=== PATIENT | female | born 1945 | race Caucasian/White ===

== ENCOUNTER 2018-02-23 10:28 | Day surgery (SDC) | payer MEDICARE, OTHER, SELFPAY ==
[2018-02-23 10:59] VITALS: BP 151/70; PULSE 63; RESP 16; TEMP 36.3; O2SAT 100; BMI 24.8
[2018-02-23 11:30] LABS: Bedside Glucose 132 mg/dL (70-110)
[2018-02-23] MEDS: Cefazolin 2 GM in 0.9% Normal Saline 100 ML IV (13:25)
[2018-02-23] MEDS: Mupirocin Ointment 22gm Tube 1 APPLIC (14:15)
--- NOTE | 2018-02-23 14:21 | PCM.DC.ORTHO ---
Discharge Diet: No Restrictions - leave dressing on until seen in postop clinic; keep clean and dry; call with concerns Discharge Activity: May Not Drive May shower in (days): 1 Ice area for (Minutes): 20 - Every hour while awake. Weight Bearing Status: Weight bearing as tolerated Keep extremity elevated above heart level: Operative Extremity Call your doctor if your incision/area has: Continuous Slow Oozing, Sudden Increased Bleeding, Increased Pain/ Swelling, Increased Redness, Foul Smelling Discharge Call your doctor if you observe: Fever of 101 or Higher, Coldness, Increased Pain, Numbness or Tingling, Change in Color, Calf discomfort Allergies/Adverse Reactions: Allergies flavoxate [From Urispas] Allergy (Verified 02/23/18 05:53) Rash meperidine HCl [From Demerol] Allergy (Verified 02/21/18 08:10) Rash morphine Allergy (Verified 02/21/18 08:10) Abd cramps/diarrhea Medications to take at Discharge Acetaminophen [Tylenol Extra Strength] 500 mg PO Q6H PRN PRN 08/30/15 Albuterol IH (ProAir) [Proair Hfa (SP)Vent Pts] 1 puff INHALATION PRN PRN 08/30/15 Aspirin [Adult Low Dose Aspirin EC] 81 mg PO DAILY 08/30/15 Hydrochlorothiazide 12.5 mg PO DAILY 08/30/15 Metoprolol Tartrate [Lopressor (Beta Aston)] 50 mg PO BID 08/30/15 fluoxetine 20 mg capsule 40 mg PO QDAY 11/23/17 glimepiride 4 mg tablet 4 mg PO BID 11/23/17 metformin 500 mg tablet 500 mg PO BID 11/23/17 Acetaminophen/Codeine #3 [Tylenol #3 Tablet] 1 - 2 tablet PO Q6H PRN PRN #30 tablet 02/23/18 The following prescriptions were given: Acetaminophen/Codeine #3 [Tylenol #3 Tablet] 1 - 2 tablet PO Q6H PRN PRN #30 tablet PRN Reason: Pain Primary Care Physician: Sydnee Guerrero MD [Primary Care Provider] - Please Follow Up With: Helen Russell, DO - [phone]
--- NOTE | 2018-02-23 14:25 | SYN_PTH ---
PATIENT: AGUSTÍN REED [place] [facility] [place][id number] AGE/SX: 72/F ROOM: RE02/23/[address]: Dr. Helen Russell DO : 1945 BED: DIS: 02/23/2018 SPEC #: [id number] RECD: 02/23/18 15:22 STATUS: IVANA MICHAELLE #: [id number] LENI: 02/23/18 14:[address]: Helen Russell DEPT: SURGICAL PATHOLOGY RECD BY: Abdiel Cooney ENTERED: 02/24/18 12:13 SP TYPE: SYNOVIUM OTHR DR: Dr. Sydnee Guerrero MD Tissues: Synovial tissue of joint, NOS Procedures: Surgery Specimen Level IV HEADER OPERATION: Right carpal tunnel release with tendon sheath debridement PRE-OP DIAGNOSIS: Right carpal tunnel syndrome TISSUE SUBMITTED: Synovial around tendon ? right lower aspect of wrist, right MICROSCOPIC DIAGNOSIS Synovial around tendon: Fragment of fibroadipose tissue and reactive synovial tissue. ROSA MARIA:prudence 02/25/18 MICROSCOPIC DESCRIPTION Slides are reviewed. GROSS DESCRIPTION Received in fixative is one container labeled with the patient's name and designated synovial tendon right lower aspect of wrist, right. The specimen consists of a piece of prater-light yellow soft tissue measuring 0.2 x 0.2 x 0.1 cm. The specimen is totally submitted in one cassette. / ROSA MARIA:prudence 02/24/18 TC:5 CPT: 08758
--- NOTE | 2018-02-23 14:26 | OP.PCM_ITS ---
Report of Operation Date of Procedure: 02/23/18 Pre-Operative Diagnosis: right wrist carpal tunnel syndrome/ synovitis Post-Operative Diagnosis: same Surgery/Procedure Performed:: right wrist carpal tunnel release, synovectomy/ tendon Type of Anesthesia:: Daniel Hernandez Anesthesiologist: Hansel Sifuentes Specimen's removed: tendon synovium Fluids Replaced: 800 cc lr Description of Procedure: Preoperative note Patient had is a 72-year-old female who has had nerve conduction study and EMG confirming carpal tunnel she also has some annoyance around her radial carpal joint where an ultrasound so she had a cyst. MRI did not show the cyst however patient would like this further evaluated is quite bothersome as well. Wrist benefits and alternatives surgery discussed with patient. Risks including but not limited to blood loss, blood clot, infection, neurovascular injury, failure procedure, loss of life and loss of limb. Patient is aware would like proceed with right carpal tunnel release repair is indicated. Operative note Patient seen and examined preoperative holding area. Right wrist is marked. Patient brought to the operating room placed supine on the operating table. Signing, anesthesia, antibiotics were administered. The right arm was prepped and draped in usual sterile fashion after [place] block was initiated. We marked out our extended carpal tunnel release extending past the wrist joint going radially as this is the location of her palpable cyst. Timeout was performed. We then used a 15 blade cut the skin did tenotomies to dissect down to the level of the transverse carpal ligament which was released in its entirety. Released it distally to the fat pad and proximally under standard technique. We then were able to go radially and actually see if the cysts appear to be a tenosynovial fluid in this synovium was then resected and sent to pathology for evaluation. There are no other cysts or other fluid-filled areas in that location. We then irrigated the incision with copious amounts of sterile saline. We closed the incision with interrupted 4-0 nylon stitches. Tourniquet was deflated for total working time of 25 minutes. Sterile dressings was applied. Patient tolerated procedure well there are no complication patient transferred to recovery room in stable condition. Postoperative note Keep dressing on until seen postop clinic Follow-up [facility] as Call with any increased pain numbness tingling further issues arise This note was generated with Dragon dictation software. It may contain incorrect words, spelling, and punctuation that were not noted in checking the note before signing.
[2018-02-23 14:28] VITALS: BP 143/90; BP 151/70; PULSE 71; RESP 16; TEMP 36.2; O2SAT 99
[2018-02-23 14:33] VITALS: BP 141/73; BP 151/70; PULSE 66; RESP 16; O2SAT 95
[2018-02-23 14:38] VITALS: BP 135/53; BP 151/70; PULSE 63; RESP 16; O2SAT 99
[2018-02-23 14:43] VITALS: BP 134/67; BP 151/70; PULSE 62; RESP 16; TEMP 36.1; O2SAT 98
[2018-02-23 15:40] VITALS: BP 151/70
== END 2018-02-23 15:41 | disposition home or self-care (01) ==
LOC: SDC 10:29 → AC 10:30
PROVIDERS: Family Provider Family Medicine; PCP Family Medicine; Visit Provider Orthopaedic Surgery
PROC: (CPT 64721; principal; 2018-02-23 14:10)
DX: G56.01 Carpal tunnel syndrome, right upper limb (principal); I48.2 Chronic atrial fibrillation; E11.9 Type 2 diabetes mellitus without complications; I10 Essential (primary) hypertension; E78.00 Pure hypercholesterolemia, unspecified; J45.909 Unspecified asthma, uncomplicated; G89.29 Other chronic pain; M54.9 Dorsalgia, unspecified; M54.2 Cervicalgia; K44.9 Diaphragmatic hernia without obstruction or gangrene; K21.9 Gastro-esophageal reflux disease without esophagitis; G47.30 Sleep apnea, unspecified; F32.9 Major depressive disorder, single episode, unspecified; F41.9 Anxiety disorder, unspecified; Z78.0 Asymptomatic menopausal state; Z79.84 Long term (current) use of oral hypoglycemic drugs; Z79.82 Long term (current) use of aspirin; Z79.899 Other long term (current) drug therapy; Z87.891 Personal history of nicotine dependence
CPT/HCPCS: 64721; 82962; 88305; J7120; J2405

== ENCOUNTER → 2018-03-25 15:47 | Outpatient (CLI) | payer MEDICARE, OTHER, SELFPAY ==
[2018-03-25 16:22] LABS: Hematocrit 40.1 % (37-47); Hemoglobin 13.2 g/dl (12.0-15.0); Mean Corp Hgb Conc 32.9 g/gl (32-36); Mean Corpuscular Hgb 28.3 pg (27.0-32.0); Mean Corpuscular Volume 85.9 fL (81-99); Mean Platelet Vol. 8.2 fl (6.2-12.0); Platelet Count 292 K/mm3 (150-450); RBC Distribution Width SD 40.4 fl (35.1-43.9); Red Blood Count 4.67 M/mm3 (4.2-5.4); White Blood Count 9.8 K/mm3 (4.4-11.0)
[2018-03-25 16:24] LABS: Scan Indicated on CBC? Y/N NO
[2018-03-25 17:38] LABS: ALB/GLOB Ratio 1.2 RATIO (0.9-2.4); AST(SGOT) 17 U/L (15-37); Alanine Aminotransfer ALT/SGPT 21 U/L (13-56); Albumin, Serum 3.9 g/dL (3.2-5.0); Alkaline Phosphatase 65 U/L (45-117); Anion Gap 8 (5-15); BUN 21 mg/dL (7-18); BUN/Creat Ratio 20.2 RATIO (10-20); Chloride 104 mmol/L (98-107); Creatinine, Serum 1.04 mg/dL (0.55-1.02); EST Glomerular Filtration Rate 55 mL/min (>60); Est Glom Filt Rate - Afr Amer 67 mL/min (>60); Free T3 2.3 pg/mL (2.18-3.98); Globulin 3.2 g/dL (2.2-4.2); Glucose 61 mg/dL (74-106); Magnesium 2.1 mg/dL (1.6-2.6); Phosphorus 3.8 mg/dL (2.5-4.9); Protein, Total 7.1 g/dL (6.4-8.2); Sodium Level 141 mmol/L (136-145); T4 Free Direct 1.03 ng/dL (0.76-1.46); Thyroid Stim Hormone (TSH) 1.26 uIU/mL (0.358-3.74)
[2018-03-25 18:39] LABS: Vitamin B12 373 pg/mL (211-911)
[2018-04-01 03:11] LABS: Rapid Plasmin Reagin (RPR) NONREACTIVE (NONREACTIVE)
== END ==
PROVIDERS: Family Provider Family Medicine; PCP Family Medicine; Visit Provider Nurse Practitioner Acute Care
DX: E88.9 Metabolic disorder, unspecified (principal)
CPT/HCPCS: 36415; 80053; 82607; 82746; 83735; 84100; 84439; 84443; 84481; 85027; 86592

== ENCOUNTER → 2018-04-05 13:44 | Outpatient (CLI) | payer MEDICARE, OTHER, SELFPAY ==
--- NOTE | 2018-04-05 13:52 | CT_ITS ---
STUDY: CT BRAIN WITHOUT CONTRAST REASON FOR EXAM: Female, 72 years old. Headache. Sharp stabbing pains left parietal area. Blurred vision. Ringing in ears worse on the right. RADIATION DOSAGE (If Supplied By Facility): CTDIvol = ( 44.99 ) mGy, DLP = ( 745.49 ) mGycm TECHNIQUE: Transaxial CT imaging of the brain was performed without administration of intravenous contrast material. Individualized dose optimization techniques were used for this CT. COMPARISON: None. FINDINGS: Extracranial soft tissues including orbital contents exhibit no acute abnormality. Craniofacial osseous structures within the field of view exhibit no acute abnormality. Paranasal sinuses, mastoid air cells and middle ear cavities are clear. Symmetric and grossly normal features of the vestibular and disc apparatus of the temporal bones bilaterally. Mild symmetric expansion of lateral ventricles and extra-axial spaces consistent with age-related atrophy. No significant chronic changes of the white matter. Normal pituitary, brainstem and cerebellum There is no acute intracranial bleed, mass or mass effect nor any specific evidence of acute territorial infarct. CT/Brain/Head without Contrast IMPRESSION: No acute intracranial process. Mild involutional changes of the brain. Normal sinuses. Normal features of the vestibular and acoustic apparatus of the temporal bones. Electronically Signed: Abdiel Quevedo, at 15:49 EDT Tel , Service support ,
== END ==
PROVIDERS: Family Provider Family Medicine; PCP Family Medicine; Visit Provider Nurse Practitioner Acute Care
DX: R51 Headache (principal)
CPT/HCPCS: 70450

== ENCOUNTER → 2018-04-14 20:06 | Outpatient (CLI) | payer MEDICARE, OTHER, SELFPAY ==
[2018-04-14] MEDS: Zolpidem Tartrate 5 MG Tablet PO (21:40)
== END ==
PROVIDERS: Family Provider Family Medicine; PCP Family Medicine; Visit Provider Nurse Practitioner Acute Care
DX: G47.33 Obstructive sleep apnea (adult) (pediatric) (principal)
CPT/HCPCS: 95811

== ENCOUNTER → 2019-05-04 14:01 | Outpatient (CLI) | payer MEDICARE, OTHER, SELFPAY ==
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
== END ==
PROVIDERS: Family Provider Family Medicine; PCP Family Medicine; Referring Provider Nurse Practitioner Family; Visit Provider Nurse Practitioner Family
DX: M25.511 Pain in right shoulder (principal); M25.552 Pain in left hip; M54.2 Cervicalgia; M54.5 Low back pain; M54.6 Pain in thoracic spine
CPT/HCPCS: 72072; 72110; 73030; 73502

== ENCOUNTER → 2019-05-05 10:05 | Outpatient (CLI) | payer MEDICARE, OTHER, SELFPAY ==
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
== END ==
PROVIDERS: Family Provider Family Medicine; PCP Family Medicine; Referring Provider Nurse Practitioner Family; Visit Provider Nurse Practitioner Family
DX: M54.2 Cervicalgia (principal)
CPT/HCPCS: 72141

== ENCOUNTER → 2019-07-06 13:40 | Outpatient (CLI) | payer MEDICARE, OTHER, SELFPAY ==
--- NOTE | 2019-07-06 13:42 | RAD_ITS ---
STUDY: X-RAY - LEFT KNEE REASON FOR EXAM: Female, 74 years old. Injury TECHNIQUE: 4 view(s) of the knee. COMPARISON: None. FINDINGS: Significant soft tissue swelling anterior to the patellar tendon. No acute displaced fracture, or traumatic subluxation based on current assessment. Mild osteoarthritis. RAD/Knee 4 or More Views IMPRESSION: No acute displaced fracture, or traumatic subluxation based on current assessment. Significant soft tissue swelling anterior to the patellar tendon. Electronically Signed: Benji Ceballos MD at 15:28 EDT Tel [phone], Service support ,
== END ==
PROVIDERS: Family Provider Family Medicine; PCP Family Medicine; Referring Provider Physician Assistant; Visit Provider Physician Assistant
DX: M25.562 Pain in left knee (principal)
CPT/HCPCS: 73564

== ENCOUNTER → 2019-07-28 15:26 | Outpatient (CLI) | payer MEDICARE, OTHER, SELFPAY ==
[2019-07-20 10:52] VITALS: BMI 24.8
[2019-07-28 16:56] LABS: Absolute Lymphocyte Count 2.22 X10^3/uL (0.83-4.51); Absolute Neutrophil Count 5.8 X10^3/uL (2.0-7.7); Basophil# 0.04 X10^3/uL; Basophil% 0.4 % (0-1); Eosinophil# 0.18 X10^3/uL; Hematocrit 38.7 % (37-47); Lymphocyte # 2.22 X10^3/ul (4.0); Lymphocyte % 24.7 % (19-41); Mean Corpuscular Hgb 26.6 pg (27.0-32.0); Mean Corpuscular Volume 85.8 fL (81-99); Mean Platelet Vol. 9.1 fl (6.2-12.0); Monocyte# 0.77 X10^3/uL; Monocyte% 8.6 % (0-10); NRBC Flagged by Analyzer 0 % (0-5); Neutrophil # 5.75 X10^3/uL (2.7-7.7); Neutrophil % 64.1 % (47-70); Platelet Count 294 K/mm3 (150-450); RBC Distribution Width CV 13.4 % (11.6-14.6); RBC Distribution Width SD 42.1 fl (35.1-43.9); Red Blood Count 4.51 M/mm3 (4.2-5.4)
[2019-07-28 17:13] LABS: ALB/GLOB Ratio 1.1 RATIO (0.9-2.4); AST(SGOT) 16 U/L (15-37); Alanine Aminotransfer ALT/SGPT 19 U/L (13-56); Albumin, Serum 3.6 g/dL (3.2-5.0); Alkaline Phosphatase 74 U/L (45-117); Anion Gap 8 (5-15); BUN 20 mg/dL (7-18); BUN/Creat Ratio 18.7 RATIO (10-20); Bilirubin, Direct 0.09 mg/dL (0.00-0.30); Calcium,Total 9.1 mg/dL (8.5-10.1); Chloride 104 mmol/L (98-107); Creatinine, Serum 1.07 mg/dL (0.55-1.02); EST Glomerular Filtration Rate 53 mL/min (>60); Est Glom Filt Rate - Afr Amer 65 mL/min (>60); Globulin 3.4 g/dL (2.2-4.2); Glucose 51 mg/dL (74-106); Potassium 3.7 mmol/L (3.5-5.1); Sodium Level 142 mmol/L (136-145); Thyroid Stim Hormone (TSH) 0.82 uIU/mL (0.358-3.74)
[2019-07-28 17:15] LABS: Hemoglobin A1c 5.8 % (4.2-6.3)
[2019-07-29 08:43] LABS: Vitamin B12 524 pg/mL (211-911)
[2019-07-31 14:07] LABS: SJOGREN'S Anti-SS-A test < 0.2 AI (0.0-0.9); SJOGREN'S Anti-SS-B test < 0.2 AI (0.0-0.9)
[2019-08-01 11:24] LABS: ANTINUCLEAR ANTIBODIES DIRECT Negative (Negative)
[2019-08-01 20:07] LABS: Cytoplasmic Ab (C-ANCA) <1:20 titer (Neg:<1:20); PROEL- A/G Ratio 1.5 (0.7-1.7); PROEL- Albumin 3.8 g/dL (2.9-4.4); PROEL- Alpha-1 Globulin 0.2 g/dL (0.0-0.4); PROEL- Alpha-2 Globulin 0.6 g/dL (0.4-1.0); PROEL- Gamma Globulin 0.8 g/dL (0.4-1.8); PROEL- Globulin, Total 2.6 g/dL (2.2-3.9); PROEL- TOTAL PROTEIN 6.4 g/dL (6.0-8.5)
[2019-08-02 12:18] LABS: Arsenic 7245 6 ug/L (2-23); Perinuclear Ab (P-ANCA) <1:20 titer (Neg:<1:20)
== END ==
PROVIDERS: Family Provider Family Medicine; PCP Family Medicine; Referring Provider Nurse Practitioner Family; Visit Provider Nurse Practitioner Family
DX: G62.9 Polyneuropathy, unspecified (principal)
CPT/HCPCS: 36415; 80053; 82175; 82248; 82607; 83036; 83655; 83825; 84165; 84166; 84443; 85025; 86038; 86235; 86256

== ENCOUNTER → 2019-08-03 11:52 | Outpatient (CLI) | payer MEDICARE, OTHER, SELFPAY ==
[2019-07-20 10:52] VITALS: BMI 24.8
[2019-08-07 13:09] LABS: PROELU- Albumin, Urine 16.6 % (.); PROELU- Alpha-2-Globulin,Ur 18.2 % (.); PROELU- Gamma Globulin, Ur 30.1 % (.)
[2019-08-08 17:08] LABS: Total Protein, Ur < 4.0 mg/dL (Not Estab.)
== END ==
PROVIDERS: Family Provider Family Medicine; PCP Family Medicine; Referring Provider Nurse Practitioner Family; Visit Provider Nurse Practitioner Family
DX: G62.9 Polyneuropathy, unspecified (principal)
CPT/HCPCS: 84166

== ENCOUNTER → 2019-09-20 15:14 | Outpatient (CLI) | payer MEDICARE, OTHER, SELFPAY ==
[2019-09-05 12:55] VITALS: BMI 24.8
--- NOTE | 2019-09-20 15:16 | MRI_ITS ---
STUDY: MRI LEFT KNEE REASON FOR EXAM: Female, 74 years old. Left knee injury from fall July 04, 2019. Bloody aspirations x2. TECHNIQUE: Standardized fat and water weighted pulse sequences were obtained in all 3 orthogonal planes. COMPARISON: Knee x-rays dated July 06, 2019. FINDINGS: Normal medial meniscus. Mild thinning of the articular cartilage of the medial femorotibial compartment (coronal series 7 images 11-17). Normal medial femoral condyle and tibial plateau. Normal medial collateral ligamentous complex (MCL). Normal distal semimembranosus, gracilis and semitendinosus tendons. Normal lateral meniscus. Mild thinning of the articular cartilage of the lateral femorotibial compartment (coronal series 7 images 11-18). Normal lateral femoral condyle and tibial plateau. Normal proximal tibiofibular articulation. Normal lateral collateral (fibular) ligament. Normal popliteus tendon. Normal biceps femoris tendon. Normal anterior cruciate ligament (ACL). Normal posterior cruciate ligament (PCL). Normal congruent patellofemoral articulation. Mild thinning of the articular cartilage of the patellofemoral compartment (axial series 3 images 8-15). Normal medial and lateral patellar retinaculum. Normal quadriceps tendon. Normal patellar tendon. Normal Hoffa's fat pad. Small joint effusion (axial series 3 image 10). Prepatellar subcutaneous soft tissue edema with prepatellar bursitis (sagittal series 5 images 7-17). The otherwise visualized osseous structures are unremarkable. MRI/Lower Ext Joint Only (Routine) IMPRESSION: Mild thinning of the articular cartilage of the medial, lateral and patellofemoral compartments. Prepatellar subcutaneous soft tissue edema. Prepatellar bursitis. Small joint effusion. No meniscal or ligamentous pathology. Electronically Signed: Nikita Williamson MD at 17:34 EST , Service support ,
== END ==
PROVIDERS: Family Provider Family Medicine; PCP Family Medicine; Referring Provider Orthopaedic Surgery; Visit Provider Orthopaedic Surgery
DX: M25.562 Pain in left knee (principal); M70.42 Prepatellar bursitis, left knee; S89.92XA Unspecified injury of left lower leg, initial encounter; W19.XXXA Unspecified fall, initial encounter; Y93.9 Activity, unspecified; Y92.9 Unspecified place or not applicable; Y99.9 Unspecified external cause status
CPT/HCPCS: 73721

== ENCOUNTER → 2019-10-06 08:42 | Outpatient (CLI) | payer MEDICARE, OTHER, SELFPAY ==
[2019-09-05 12:55] VITALS: BMI 24.8
--- NOTE | 2019-10-06 16:33 | NEURO ---
NCS and/or EMG Patient Report HPI: Patient is a 74-year-old female who presented with complains of back pain with a history of back surgery in past. Patient also complain of numbness in her legs, worse on the left side than the right side. Patient also complains of weakness in her legs and patient is walking with a cane. Patient fell on her left knee on 24 of June. Patient had significant left knee pain and swelling at that time but is improving now. Patient is being evaluated by Dr. Russell for left knee pain. Patient also has history of diabetes. Physical Exam: 1. Mild tenderness of left knee with degenerative changes and mild residual edema. 2. Mild tenderness around left ankle noted. 3. Decreased sensation to light touch in the left foot noted. Findings: 1. There is a prolongation of distal latencies of the right and left sural sensory nerve responses. 2. Normal motor nerve conduction studies of right and left common peroneal and tibial motor nerves. 3. Normal needle examination of bilateral lower extremities including lumbar paraspinal muscles except for decreased recruitment in the right and left extensor digitorum brevis muscles. Impression: 1. 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 2. No electrodiagnostic evidence of lumbar plexopathy or radiculopathy in bilateral lower extremities. Recommendation: Clinical correlation and appropriate work-up is recommended.
== END ==
PROVIDERS: Family Provider Family Medicine; PCP Family Medicine; Referring Provider Orthopaedic Surgery; Visit Provider Orthopaedic Surgery
DX: G57.93 Unspecified mononeuropathy of bilateral lower limbs (principal); M25.562 Pain in left knee; M70.42 Prepatellar bursitis, left knee; T14.90XA Injury, unspecified, initial encounter; X58.XXXA Exposure to other specified factors, initial encounter; Y93.9 Activity, unspecified; Y92.9 Unspecified place or not applicable; Y99.9 Unspecified external cause status
CPT/HCPCS: 95886; 95911

== ENCOUNTER → 2019-11-30 09:20 | Outpatient (CLI) | payer MEDICARE, OTHER, SELFPAY ==
[2019-10-20 12:38] VITALS: BMI 24.8
--- NOTE | 2019-11-30 09:22 | MRI_ITS ---
STUDY: MRI LUMBAR SPINE WITHOUT CONTRAST REASON FOR EXAM: Female, 74 years old. radiculopathy, LEFT leg and hip pain. Prior lumbar decompression TECHNIQUE: Standardized fat and water weighted pulse sequences were obtained in the sagittal and axial planes. COMPARISON: Lumbar spine radiograph May 04, 2019 and MR lumbar spine December 12, 2015 FINDINGS: T12-L1: Normal endplates. Normal disc height, hydration and morphology. Normal bilateral facet joints. Normal central canal and bilateral lateral recesses. Normal bilateral intervertebral neural foramina. Normal lumbar lordosis. There is no substantial scoliosis. Normal conus medullaris that terminates at the L1. L1-2: Normal endplates. Normal disc height, hydration and morphology. Normal bilateral facet joints. Normal central canal and bilateral lateral recesses. Normal bilateral intervertebral neural foramina. L2-3: Normal endplates. Normal disc height, hydration and morphology. Normal bilateral facet joints. Normal central canal and bilateral lateral recesses. Normal bilateral intervertebral neural foramina. Laminectomy. L3-4: Normal endplates. Normal disc height, hydration and morphology. Normal bilateral facet joints. Normal central canal and bilateral lateral recesses. Narrowed bilateral intervertebral neural foramina. Spine ectomy. L4-5: Normal endplates. Normal disc height, hydration and morphology. Normal bilateral facet joints. Normal central canal and bilateral lateral recesses. Normal bilateral intervertebral neural foramina. Spine ectomy. L5-S1: Normal endplates. Normal disc height, hydration and morphology. Normal bilateral facet joints. Normal central canal and bilateral lateral recesses. Normal bilateral intervertebral neural foramina. Normal visualized sacral ala. Normal visualized paraspinous soft tissue structures. IMPRESSION: Bilateral narrowing L3-4 neural foramina. Laminectomy at L2-3 and spine ectomy''s at L3-4 and L4-5. Electronically Signed: Diogo Parra MD at 19:11 EST , Service support , MRI/Spine Lumbar (Routine)
== END ==
PROVIDERS: Family Provider Family Medicine; PCP Family Medicine; Referring Provider Nurse Practitioner Family; Visit Provider Nurse Practitioner Family
DX: M54.16 Radiculopathy, lumbar region (principal)
CPT/HCPCS: 72148

== ENCOUNTER 2020-08-30 08:51 | Day surgery (SDC) | payer MEDICARE, OTHER, SELFPAY ==
[2019-10-20 12:38] VITALS: BMI 24.8
[2020-08-30 09:11] VITALS: BP 136/67; PULSE 64; RESP 16; TEMP 35.9; O2SAT 100; BMI 26.4
[2020-08-30] MEDS: Lactated Ringers 1,000 ML 100 ML IV (09:34)
[2020-08-30 09:41] LABS: Bedside Glucose 118 mg/dL (70-110)
--- NOTE | 2020-08-30 10:00 | RAD_ITS ---
STUDY: X-RAY - LUMBAR SPINE REASON FOR EXAM: Female, 75 years old. SPINAL CORD STIMULATOR INSERTION. LEVEL T7-T8 TOP OF WIRES. TECHNIQUE: 6 intraoperative view(s) of the lumbar spine were obtained. COMPARISON: None FINDINGS: 6 limited intraoperative films were performed as the patient has undergone spinal cord stimulator insertion. Limited study does not provide the capability to determine at what level leads are. There is no plain film evidence of complication RAD/Lumbar Spine 2 or 3 Views IMPRESSION: Spinal cord stimulator placement Electronically Signed: Nj Fernández MD at 17:06 EDT , Service support ,
[2020-08-30] MEDS: Cefazolin 2 GM in 0.9% Normal Saline 100 ML IV (10:12)
[2020-08-30] MEDS: Bupiv/Epi 0.25% 30 ML Vial (10:34)
[2020-08-30 11:36] VITALS: BP 122/61; BP 136/67; PULSE 81; RESP 16; TEMP 36.1; O2SAT 89
[2020-08-30 11:45] VITALS: BP 127/72; BP 136/67; PULSE 70; RESP 16; O2SAT 97
[2020-08-30 11:48] VITALS: BP 136/67; PULSE 71; RESP 16; O2SAT 100
[2020-08-30 11:50] LABS: Bedside Glucose 107 mg/dL (70-110)
[2020-08-30 12:00] VITALS: BP 103/47; BP 136/67; PULSE 65; RESP 18; TEMP 36.9; O2SAT 95
[2020-08-30 13:21] VITALS: BP 118/66; BP 136/67; PULSE 66; RESP 18; TEMP 36.8; O2SAT 97
== END 2020-08-30 13:26 | disposition home or self-care (01) ==
LOC: SDC 08:51 → AC 08:52
PROVIDERS: Anesthesiology; PCP Family Medicine; Referring Provider Anesthesiology Pain Medicine; Visit Provider Anesthesiology Pain Medicine
PROC: (CPT 63685; principal; 2020-08-30 10:10)
DX: M54.16 Radiculopathy, lumbar region (principal); M96.1 Postlaminectomy syndrome, not elsewhere classified; G89.29 Other chronic pain; I10 Essential (primary) hypertension; J45.909 Unspecified asthma, uncomplicated; E11.9 Type 2 diabetes mellitus without complications; G47.30 Sleep apnea, unspecified; M19.90 Unspecified osteoarthritis, unspecified site; F32.9 Major depressive disorder, single episode, unspecified; Z79.82 Long term (current) use of aspirin; Z79.84 Long term (current) use of oral hypoglycemic drugs; Z79.899 Other long term (current) drug therapy; Z20.828 Contact with and (suspected) exposure to other viral communicable diseases; Z87.891 Personal history of nicotine dependence
CPT/HCPCS: 01922; 63650 ×2; 63685; 72100; 76000; 82962; 87635; C1778; C1820; C9803; J7120; J2405; U0003

== ENCOUNTER 2022-01-27 16:56 | Outpatient (CLI) | payer MEDICARE, OTHER, SELFPAY ==
--- NOTE | 2022-01-27 17:01 | RAD_ITS ---
STUDY: X-RAY - THORACIC SPINE REASON FOR EXAM: Female, 76 years old. Degenerative disc disease. TECHNIQUE: 3 view(s) of the thoracic spine were obtained. COMPARISON: 06/03/2019 FINDINGS: Normal kyphosis of the thoracic spine. There is no substantial scoliosis. Normal thoracic vertebrae and endplates. Minimal disc space narrowing in the mid thoracic spine. There is no evidence of acute fracture or loss of vertebral axial height. There is a dorsal column stimulator with its electrodes overlying T7-T9. The soft tissue structures are unremarkable. RAD/Thoracic Spine 3 Views IMPRESSION: 1. Minimal degenerative changes of the thoracic spine without acute abnormality. This appears similar to the prior study. 2. Dorsal column stimulator. Electronically Signed: Clement Ward DO at 23:55 EDT ,
== END 2022-01-27 23:59 | disposition home or self-care (01) ==
LOC: RAD 17:00
PROVIDERS: PCP Family Medicine; Referring Provider Anesthesiology Pain Medicine; Visit Provider Anesthesiology Pain Medicine
DX: M51.34 Other intervertebral disc degeneration, thoracic region (principal)
CPT/HCPCS: 72072

== ENCOUNTER → 2023-12-02 | Outpatient (CLI) | payer MEDICARE, SELFPAY ==
--- NOTE | 2023-12-02 10:34 | RAD_ITS ---
STUDY: X-RAY - PELVIS AND BILATERAL HIPS REASON FOR EXAM: Female, 78 years old. Hip pain. TECHNIQUE: AP view of the pelvis.? 2 views of the right hip, and 2 views of the left hip were obtained. COMPARISON: 05/04/2019 FINDINGS: There is a non-specific bowel gas pattern. New epidural stimulator with postsurgical changes in the right pelvis unchanged. Osteopenia. Normal bilateral iliac wings, sacroiliac joints and visualized sacrum. Normal bilateral superior and inferior pubic rami. Normal pubic symphysis. Normal bilateral ischial tuberosities. Stable mild arthrosis of both hips. RAD/Hips B/L min 2 views w/ Pelvis IMPRESSION: Osteopenia with stable mild arthrosis of both hips. Electronically Signed: Nikita Williamson MD at 15:53 EST ,
--- OUTSIDE RECORDS SUMMARY | 2023-12-02 10:55 | XMS RPT_ITS | CCD ---
Author Name Unknown Address [address] [place] [address] Organization [facility] Care Team Providers Care Medical Records Supervisor Name Role Phone AtticaAda S Primary Care Provider Attica Sydnee Referring Unavailable Jalen Ng Attending Unavailable [facility] Unavailable [facility] Sydnee Primary Care Unavailable Digna Hawkins Attending Unavailable Attica, Sydnee Referring Unavailable Attica, Sydnee Referring Unavailable [facility] Unavailable Digna Hawkins Attending Unavailable Attica, Sydnee Referring Unavailable Attica, Sydnee Primary Care Unavailable MARIA ELENA MASON Attending Unavailable Cesar DOWNEY [facility] S Primary Care Provider LIN HOOD Referring Unavailable [facility] Unavailable Cesar DOWNEY [facility] S Primary Care Provider Cesar DOWNEY [facility] S Primary Care Provider [facility] Primary Care Unavailable HELEN RUSSELL Attending Unavailab MONICA Shankar Referring Unavailable LIN HOOD Attending Unavailable [place], SYDNEE S Primary Care Unavailable MONICA WYNNE Referring Unavailable KALANI SOTO Attending [facility]availa [facility]available EDITH ONTIVEROS Attending Unavailable [place], SYDNEE S Primary Care Unavailable DONNIE RUFFIN Attending Unavailable [place], SYDNEE S Primary Care Unavailable HELEN RUSSELL Referring Unavailab REGINA Noel Attending Unavailable [place], SYDNEE S Primary Care Unavailable HELEN RUSSELL Referring Unavailab REGINA Noel Attending Unavailable [place], SYDNEE S Primary Care Unavailable HELEN RUSSELL Referring Unavailab le [facility] S Primary Care Unavailable EDITH ONTIVEROS Referring Unavailable [facility] S Primary Care Unavailable REGINA VELASCO Attending Unavailable REGINA VELASCO Admitting Unavailable Cesar DOWNEY, [facility] Primary Care Provider EDITH ONTIVEROS Referring Unavailable [facility] S Primary Care Unavailable Cesar DOWNEY [facility] Primary [facility]ending [facility] Primary Care Unavailable [place], SYDNEE Primary Care Unavailable LORI CAMPO Attending Unavailable MIKAYLA LIZ Attending Unavailable [facility] Unavailable DIGNA HAWKINS Attending Unavailable JR, DIGNA Referring Unavailable [place], SYDNEE Primary Care Unavailable JRDIGNA JAMES Attending Unavailable JR, DIGNA Referring Unavailable [place], SYDNEE Primary Care Unavailable [place], SYDNEE Referring Unavailable [place], SYDNEE Primary Care Unavailable EDITH ROSE Attending Unavailable DIGNA HAWKINS Attending Unavailable JR, DIGNA Referring Unavailable [facility] Primary Care Unavailable JR, DIGNA Referring Unavailable [place], SYDNEE Primary Care Unavailable JR, DIGNA Referring Unavailable [place], SYDNEE Primary Care Unavailable JR, DIGNA Referring Unavailable [place], SYDNEE Primary Care Unavailable [place], SYDNEE Attending Unavailable SHALONDA, MIKAYLA Referring Unavailable [place], SYDNEE Primary Care Unavailable JALEN NG [facility] Unavailable JALEN NG Attending [facility] Primary Care Unavailable [place], SYDNEE Attending [facility] Unavailable Allergies Allergy Classification Reported Allergen(s) Allergy Type Date of Onset Reaction(s) Facility Acetaminophen (1 source) Acetaminophen Drug Allergy 0 Itching [facility] Acetaminophen / HYDROcodone (1 source) Acetaminophen / HYDROcodone Drug Allergy 5 Itching [facility] flavoxATE (2 sources) flavoxATE Drug Allergy 7 Rash [facility] Opioid Agonists (3 sources) Meperidine Drug Allergy 5 Rash, Hives, Shortness Of Breath [facility] (20 sources) Acetaminophen / HYDROcodone; Translations: [HYDROCODONE-ACETA MINOPHEN] Drug Allergy 5 Itching [place] (20 sources) fentaNYL Drug Allergy 5 Hives, Itching [place] (20 sources) flavoxATE; Translations: [FLAVOXATE HCL] Drug Allergy 7 [place] (20 sources) flavoxATE Drug Allergy 5 [place] (20 sources) Meperidine Drug Allergy 5 [place] (20 sources) Morphine; Translations: [MORPHINE] Drug Allergy 7 Shortness Of Breath, GI Upset, Anaphylaxis [place] (5 sources) Acetaminophen Drug Allergy 0 Itching [facility] Phone: (20 sources) fentaNYL; Translations: [FENTANYL CITRATE] Drug Allergy 6 Itching [facility] (20 sources) Meperidine; Translations: [MEPERIDINE (PF)] Drug Allergy 6 [facility] (20 sources) Acetaminophen Drug Allergy 0 Itching [facility] (20 sources) Meperidine Drug Allergy 2 [facility] (19 sources) busPIRone Drug Allergy 3 [facility] (19 sources) traMADol Drug Allergy 3 [facility] Medications Current Medications Medication Drug Class(es) Dates Sig (Normalized) Sig (Original) acetaminophen 500 mg oral tablet (20 sources) take 1 tablet by mouth every eight hours as needed acetaminophen (Tylenol) 500 MG tablet Take 500 mg by mouth every 8 hours as needed. 0 Active Completed/Discontinued Medications Medication Drug Class(es) Dates Sig (Normalized) Sig (Original) cephalexin 500 mg oral capsule (2 sources) Cephalosporin Antibacterial Start: 06-24-2019 End: 07-01-2019 cephALEXin (KEFLEX) capsule 500 mg DOCOSAHEXANOIC ACID/EPA (FISH OIL ORAL) (1 source) End: 04-16-2022 DOCOSAHEXANOIC ACID/EPA (FISH OIL ORAL) Take 1,200 mg by mouth. 0 04/16/2022 Discontinued Problems Active Problems Problem Classification Problem Date Documented Da te Episodic/Chronic Abdominal pain (20 sources) Epigastric pain; Translations: [Epigastric pain] Onset: 6 Episodic Asthma (20 sources) Asthma; Translations: [Unspecified asthma, uncomplicated] Onset: 0 09-07-2015 Chronic Cardiac dysrhythmias (20 sources) Atrial fibrillation; Translations: [Unspecified atrial fibrillation] Onset: 0 09-09-2015 Chronic Diabetes mellitus with complications (20 sources) Type 2 diabetes mellitus; Translations: [Type 2 diabetes mellitus with diabetic polyneuropathy] Onset: 3 04-08-2023 Chronic Diabetes mellitus without complication (20 sources) Type 2 diabetes mellitus without complication; Translations: [Type 2 diabetes mellitus without complications] Onset: 7 09-13-2017 Chronic Esophageal disorders (20 sources) Gastroesophageal reflux disease; Translations: [Gastro-esophageal reflux disease without esophagitis] Onset: 0 09-09-2015 Chronic Essential hypertension (20 sources) Essential hypertension; Translations: [Essential (primary) hypertension] Onset: 0 05-12-2019 Chronic Gastritis and duodenitis (2 sources) Other gastritis without bleeding; Translations: [Bile-induced gastritis] Onset: 2 Episodic Mood disorders (20 sources) Dysthymia; Translations: [Dysthymic disorder] Onset: 5 09-07-2015 Chronic Nausea and vomiting (16 sources) Nausea; Translations: [Nausea] 01-29-2016 Episodic Nonmalignant breast conditions (2 sources) Diffuse cystic mastopathy of right breast; Translations: [Diffuse cystic mastopathy of right breast] Onset: 2 Chronic Nonmalignant breast conditions (6 sources) Hypertrophy of breast; Translations: [Other specified disorders of breast] Onset: 2 Episodic Osteoarthritis (12 sources) Primary coxarthrosis, bilateral; 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] Onset: 3 Chronic Osteoporosis (20 sources) Age-related osteoporosis without current pathological fracture; Translations: [Senile osteoporosis] Onset: 2 Chronic Other acquired deformities (6 sources) Lumbar spondylolisthesis; Translations: [Spondylolisthesis, lumbar region] Onset: 3 Episodic Other aftercare (2 sources) Patient encounter status; Translations: [Encounter for therapeutic drug level monitoring] 05-11-2023 Episodic Other bone disease and musculoskeletal deformities (1 source) Postmenopausal osteopenia; Translations: [Other specified disorders of bone density and structure, unspecified site] Episodic Other bone disease and musculoskeletal deformities (1 source) Disorder of bone; Translations: [Other specified disorders of bone density and structure, unspecified site] Episodic Other bone disease and musculoskeletal deformities (2 sources) Other specified disorders of bone density and structure, unspecified site; Translations: [Oth disrd of bone density and structure, unspecified site] Onset: 2 Episodic Other diseases of bladder and urethra (20 sources) Overactive bladder; Translations: [Overactive bladder] Onset: 2 02-24-2022 Chronic Other gastrointestinal disorders (1 source) Loose stool; Translations: [Other fecal abnormalities] Episodic Other gastrointestinal disorders (16 sources) Passing flatus; Translations: [Flatulence] 06-09-2017 Episodic Other gastrointestinal disorders (16 sources) Diarrhea; Translations: [Diarrhea, unspecified] 01-29-2016 Episodic Other gastrointestinal disorders (16 sources) Abdominal wind pain; Translations: [Gas pain] 03-24-2017 Episodic Other gastrointestinal disorders (16 sources) Dysphagia; Translations: [Dysphagia, unspecified] 03-24-2017 Episodic Other gastrointestinal disorders (1 source) Abdominal distension (gaseous); Translations: [Bloating] Onset: 2 Episodic Other gastrointestinal disorders (1 source) Abdominal bloating; Translations: [Abdominal distension (gaseous)] Episodic Other injuries and conditions due to external causes (1 source) Contusion; Translations: [Multiple contusions] Episodic Other nervous system disorders (2 sources) Other chronic pain; Translations: [Other chronic pain] Onset: 3 Chronic Other non-traumatic joint disorders (5 sources) Hip pain; Translations: [Pain in right hip] Episodic Other skin disorders (1 source) Localized swelling, mass and lump, left upper limb; Translations: [Skin lump of arm, left] Episodic Other skin disorders (1 source) Localized swelling, mass and lump, upper limb; Translations: [Localized swelling, mass and lump, left upper limb] Episodic Pulmonary heart disease (20 sources) Pulmonary hypertension; Translations: [Pulmonary hypertension, unspecified] Onset: 0 09-09-2015 Chronic Residual codes; unclassified (20 sources) Sleep apnea; Translations: [Sleep apnea, unspecified] Onset: 0 09-09-2015 Chronic Residual codes; unclassified (2 sources) History of partial pancreatectomy; 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] Chronic Residual codes; unclassified (2 sources) Obstructive sleep apnea syndrome; Translations: [Obstructive sleep apnea (adult) (pediatric)] Chronic Residual codes; unclassified (2 sources) Parasomnia; Translations: [Parasomnia, unspecified] Chronic Residual codes; unclassified (2 sources) Obstructive sleep apnea (adult) (pediatric); Translations: [Obstructive sleep apnea (adult) (pediatric)] Onset: 3 Chronic Residual codes; unclassified (2 sources) Sleep apnea, unspecified; Translations: [Sleep apnea, unspecified] Onset: 2 Chronic Residual codes; unclassified (2 sources) Parasomnia, unspecified; Translations: [Parasomnia, unspecified] Onset: 3 Chronic Residual codes; unclassified (1 source) Amnesia; Translations: [Other amnesia] Episodic Residual codes; unclassified (4 sources) History of fundoplication; Translations: [Other specified postprocedural states] Episodic Residual codes; unclassified (2 sources) Menopause present; Translations: [Asymptomatic menopausal state] Onset: 2 Episodic Residual codes; unclassified (1 source) Asymptomatic menopausal state; Translations: [Asymptomatic menopausal state] Onset: 2 Episodic Residual codes; unclassified (1 source) Early satiety; Translations: [Early satiety] Onset: 2 Episodic Residual codes; unclassified (1 source) Early satiety; Translations: [Early satiety] Episodic Spondylosis; intervertebral disc disorders; other back problems (20 sources) Arthritis of facet joint of lumbar spine; Translations: [Spondylosis without myelopathy or radiculopathy, lumbar region] Onset: 3 Chronic Unclassified (1 source) Contusion of left knee; Translations: [Contusion of left knee, initial encounter] Unclassified (1 source) Low back pain, unspecified; Translations: [Low back pain, unspecified] Onset: 3 Urinary tract infections (1 source) Urinary tract infectious disease; Translations: [Urinary tract infection with hematuria, site unspecified] Episodic Past or Other Problems Problem Classification Problem Date Documented Date Episodic/Chronic E Codes: Fall (4 sources) Fall; Translations: [Unspecified fall, initial encounter] Onset: 05-30-2023 05-30-2023 Episodic Genitourinary symptoms and ill-defined conditions (2 sources) Frequency of micturition; Translations: [Frequency of micturition] Onset: 12-08-2022 Episodic Mood disorders (19 sources) Mood disorders Onset: 03-30-2023 03-30-2023 Neoplasms of unspecified nature or uncertain behavior (20 sources) Neoplasm of pancreas; 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] Onset: 09-07-2015 09-07-2015 Episodic Nonspecific chest pain (4 sources) Chest wall pain; Translations: [Other chest pain] Onset: 05-30-2023 05-30-2023 Episodic Other acquired deformities (1 source) Spondylolisthesis, lumbar region; Translations: [Anterolisthesis of lumbar spine] Onset: 01-21-2023 Episodic Other circulatory disease (20 sources) Vascular insufficiency; Translations: [Venous insufficiency (chronic) (peripheral)] Onset: 09-07-2015 09-07-2015 Episodic Other diseases of veins and lymphatics (1 source) Disorder of vein; Translations: [Venous insufficiency] Onset: 09-07-2015 09-07-2015 Episodic Other injuries and conditions due to external causes (2 sources) Other injury of unspecified body region, initial encounter; Translations: [Other injury of unspecified body region, initial encounter] Onset: 12-08-2022 Episodic Other non-traumatic joint disorders (4 sources) Pain in left hip; Translations: [Pain in left hip] Onset: 03-11-2023 Episodic Other non-traumatic joint disorders (4 sources) Pain in right knee; Translations: [Other acute pain] Onset: 05-30-2023 05-30-2023 Episodic Other non-traumatic joint disorders (2 sources) Pain in left knee; Translations: [Pain in left knee] Onset: 05-30-2023 Episodic Other non-traumatic joint disorders (2 sources) Pain in right hip; Translations: [Pain in right hip] Onset: 03-11-2023 Episodic Other non-traumatic joint disorders (2 sources) Pain in unspecified hip; Translations: [Pain in unspecified hip] Onset: 12-08-2022 Episodic Other screening for suspected conditions (not mental disorders or infectious disease) (13 sources) Mammography abnormal; Translations: [Other abnormal and inconclusive findings on diagnostic imaging of breast] Onset: 05-22-2022 Episodic Pancreatic disorders (not diabetes) (20 sources) Cyst and pseudocyst of pancreas; Translations: [Cyst of pancreas] Onset: 09-01-2016 09-10-2016 Episodic Residual codes; unclassified (1 source) Other specified postprocedural states; Translations: [History of Torsten fundoplication] Onset: 06-29-2022 Episodic Spondylosis; intervertebral disc disorders; other back problems (7 sources) Lumbago with sciatica; Translations: [Lumbago with sciatica, unspecified side] Onset: 12-10-2022 Episodic Sprains and strains (4 sources) Acetabular labrum tear; Translations: [Other sprain of left hip, subsequent encounter] Onset: 07-23-2023 07-23-2023 Episodic Superficial injury; contusion (3 sources) Contusion of right knee; Translations: [Contusion of right knee, subsequent encounter] Onset: 07-23-2023 07-23-2023 Episodic Unclassified (1 source) Low back pain, unspecified; Translations: [Low back pain, unspecified] Onset: 12-08-2022 Results Test Name Value Interpretation Reference Range Facil ity Vital Signs Date Time Vital Sign Value Performing Clinician Facility 08-20-2023 13:44-0400 Body height 157.5 cm Edith Rose MD Work Phone: [facility] 08-20-2023 13:44-0400 Body mass index (BMI) [Ratio] 24.69 kg/m2 Edith Rose MD Work Phone: [facility] 08-20-2023 13:44-0400 Body weight 61.24 kg Edith Rose MD Work Phone: [facility] 08-20-2023 13:44-0400 Diastolic blood pressure 68 mm[Hg] Edith Rose MD Work Phone: [facility] 08-20-2023 13:44-0400 Systolic blood pressure 136 mm[Hg] Edith Rose MD Work Phone: [facility] 07-23-2023 11:19-0400 Body height 157.5 cm Sydnee Guerrero MD Work Phone: [facility] 07-23-2023 11:19-0400 Body mass index (BMI) [Ratio] 24.84 kg/m2 Sydnee Guerrero MD Work Phone: [facility] 07-23-2023 11:19-0400 Body temperature 98.2 [degF] Sydnee Guerrero MD Work Phone: [facility] 07-23-2023 11:19-0400 Body weight 61.6 kg Sydnee Guerrero MD Work Phone: [facility] 07-23-2023 11:19-0400 Diastolic blood pressure 77 mm[Hg] Sydnee Guerrero MD Work Phone: [facility] 07-23-2023 11:19-0400 Heart rate 60 /min Sydnee Guerrero MD Work Phone: [facility] 07-23-2023 11:19-0400 SaO2% (BldA) [Mass fraction] 99 % Sydnee Guerrero MD Work Phone: [facility] 07-23-2023 11:19-0400 Systolic blood pressure 152 mm[Hg] Sydnee Guerrero MD Work Phone: [facility] 07-06-2023 09:35-0400 Body height 157.5 cm Sydnee Guerrero MD Work Phone: [facility] 07-06-2023 09:35-0400 Body mass index (BMI) [Ratio] 24.69 kg/m2 Sydnee Guerrero MD Work Phone: [facility] 07-06-2023 09:35-0400 Body weight 61.24 kg Sydnee Guerrero MD Work Phone: [facility] 05-30-2023 12:01-0400 Body temperature 97.5 [degF] Lori Voll DO Work Phone: [facility] 05-30-2023 12:01-0400 Diastolic blood pressure 88 mm[Hg] Lori Voll DO Work Phone: [facility] 05-30-2023 12:01-0400 Heart rate 67 /min Lori Voll DO Work Phone: [facility] 05-30-2023 12:01-0400 Respiratory rate 18 /min Lori Voll DO Work Phone: [facility] 05-30-2023 12:01-0400 SaO2% (BldA) [Mass fraction] 100 % Lori Voll DO Work Phone: [facility] 05-30-2023 12:01-0400 Systolic blood pressure 117 mm[Hg] Lori Voll DO Work Phone: [facility] 05-26-2023 15:07-0400 Body mass index (BMI) [Ratio] 25.68 kg/m2 Chair 5 [facility] 05-26-2023 15:07-0400 Body temperature 96.91 [degF] Chair 5 [facility] 05-26-2023 15:07-0400 Body weight 62.14 kg Chair 5 [facility] 05-26-2023 15:07-0400 Diastolic blood pressure 67 mm[Hg] Chair 5 [facility] 05-26-2023 15:07-0400 Heart rate 82 /min Chair 5 [facility] 05-26-2023 15:07-0400 Respiratory rate 18 /min Chair 5 [facility] 05-26-2023 15:07-0400 Systolic blood pressure 126 mm[Hg] [facility] 5 [facility] 03-11-2023 13:57-0400 Body mass index (BMI) [Ratio] 26.34 kg/m2 Jalen Ng MD Work Phone: [facility] 03-11-2023 13:57-0400 Body weight 65.32 kg Jalen Ng MD Work Phone: [facility] 03-11-2023 13:57-0400 Diastolic blood pressure 75 mm[Hg] Jalen Ng MD Work Phone: [facility] 03-11-2023 13:57-0400 Heart rate 69 /min Jalen Ng MD Work Phone: [facility] 03-11-2023 13:57-0400 Systolic blood pressure 124 mm[Hg] Jalen Ng MD Work Phone: [facility] 02-10-2023 09:42-0400 Body height 157.5 cm Donnie Ruffin PA-C Work Phone: [facility] 02-10-2023 09:42-0400 Body weight 64.91 kg Donnie Ruffin PA-C Work Phone: [facility] 02-10-2023 09:42-0400 Diastolic blood pressure 45 mm[Hg] Donnie Ruffin PA-C Work Phone: [facility] 02-10-2023 09:42-0400 Heart rate 65 /min Donnie Ruffin PA-C Work Phone: [facility] 02-10-2023 09:42-0400 SaO2% (BldA) [Mass fraction] 100 % Donnie Ruffin PA-C Work Phone: [facility] 02-10-2023 09:42-0400 Systolic blood pressure 130 mm[Hg] Donnie Ruffin PA-C Work Phone: [facility] 06-29-2022 09:24-0400 Diastolic blood pressure 67 mm[Hg] Kalani Soto MD Work Phone: [facility] 06-29-2022 09:24-0400 Heart rate 62 /min Kalani Soto MD Work Phone: [facility] 06-29-2022 09:24-0400 Respiratory rate 16 /min Kalani Soto MD Work Phone: [facility] 06-29-2022 09:24-0400 SaO2% (BldA) [Mass fraction] 94 % Kalani Soto MD Work Phone: [facility] 06-29-2022 09:24-0400 Systolic blood pressure 159 mm[Hg] Kalani Soto MD Work Phone: [facility] 06-29-2022 09:02-0400 Body temperature 97.11 [degF] Kalani Soto MD Work Phone: [facility] 06-29-2022 08:04-0400 Body height 157.5 cm Kalani Soto MD Work Phone: [facility] 06-29-2022 08:04-0400 Body weight 64.41 kg Kalani Soto MD Work Phone: [facility] 06-15-2022 13:43-0400 Diastolic blood pressure 74 mm[Hg] Maria Elena Mason ACID CONCENTRATOR - CLINICAL DATA MANAGEMENT MANAGER Work Phone: [facility] 06-15-2022 13:43-0400 Heart rate 67 /min Maria Elena Mason ACID CONCENTRATOR - CLINICAL DATA MANAGEMENT MANAGER Work Phone: [facility] 06-15-2022 13:43-0400 SaO2% (BldA) [Mass fraction] 98 % Maria Elena Mason ACID CONCENTRATOR - CLINICAL DATA MANAGEMENT MANAGER Work Phone: [facility] 06-15-2022 13:43-0400 Systolic blood pressure 132 mm[Hg] Maria Elena Mason ACID CONCENTRATOR - CLINICAL DATA MANAGEMENT MANAGER Work Phone: [facility] 04-16-2022 09:50-0400 Body height 157.5 cm Monica Kalka PA-C Work Phone: [facility] 04-16-2022 09:50-0400 Body weight 67.13 kg Monica Kalka PA-C Work Phone: [facility] 04-16-2022 09:50-0400 Diastolic blood pressure 72 mm[Hg] Monica Kalka PA-C Work Phone: [facility] 04-16-2022 09:50-0400 Heart rate 64 /min Monica Kalka PA-C Work Phone: [facility] 04-16-2022 09:50-0400 Systolic blood pressure 122 mm[Hg] Monica Kalka PA-C Work Phone: [facility] 06-24-2019 21:43-0400 BP Diastolic 68 mm[Hg] Donnie Dubose [facility] , [place] 06-24-2019 21:43-0400 BP Systolic 155 mm[Hg] [facility] [place] 06-24-2019 21:43-0400 Pulse (Heart Rate) 60 /min Donnie Dubose [facility] 06-24-2019 21:43-0400 Respiratory Rate 18 /min [facility] [place] 06-24-2019 20:31-0400 Body Temperature 98.2 [degF] Don[facility] 06-24-2019 20:31-0400 Pulse Oximetry 100 % Donnie Gracy [place], [place] Encounters Encounter Date Encounter Type Care Provider Facility Start: 11-25-2023 End: 11-26-2023 ambulatory DIGNACHAPARRO HAWKINS [facility] Start: 11-23-2023 Orders Only Edith Suh [facility] Start: 11-05-2023 Telephone encounter Bety James [facility] Procedures Date Procedure Procedure Detail Performing Clinician Start: 11-16-2023 Basic metabolic panel calcium total Alyssia Cardenas CNP Work Phone: Start: 07-06-2023 breast uni real time with image limited Digna Cardenas CNP Work Phone: Start: 07-06-2023 Diagnostic mammography computer-aided detcj bi Digna Cardenas CNP Work Phone: Start: 06-25-2023 Mri any jt lower extrem w/o contrast matrl Edith Ontiveros PA-C Work Phone: Start: 05-30-2023 End: 05-30-2023 Radex sternum minimum 2 views Lori shrestha DO Work Phone: Start: 05-05-2023 Arthrocentesis aspir&/inj major jt/bursa w/us Edith Ontiveros PA-C Work Phone: Start: 10-09-2022 Gastric emptying imaging study Lin Ramseyeze WHYTE Work Phone: Start: 06-29-2022 Esophagogastroduodenoscopy transoral diagnostic Monica Wynne ISABELL Work Phone: Start: 06-09-2022 Us breast uni real time with image limited Digna Hawkins ACID CONCENTRATOR - CLINICAL DATA MANAGEMENT MANAGER Work Phone: Start: 06-09-2022 Diagnostic mammography computer-aided detcj uni Digna Hawkins ACID CONCENTRATOR - CLINICAL DATA MANAGEMENT MANAGER Work Phone: Start: 05-22-2022 Screening digital breast tomosynthesis bi Digna Hawkins ACID CONCENTRATOR - CLINICAL DATA MANAGEMENT MANAGER Work Phone: Start: 03-31-2022 Lipid 1996 panel - Serum or Plasma Jalen Ng MD Work Phone: Start: 05-20-2021 Screening digital breast tomosynthesis bi Sydnee Guerrero MD Work Phone: Start: 02-10-2021 Assay of thyroid stimulating hormone tsh Jay Woody Work Phone: Start: 02-10-2021 C-reactive protein Jay Woody Work Phone: Start: 02-10-2021 Comprehensive metabolic panel Jay darling Work Phone: Start: 02-10-2021 Cyanocobalamin vitamin b-12 Jay jauregui Work Phone: Start: 02-10-2021 Rheumatoid factor quantitative Jay Woody Work Phone: Start: 02-10-2021 Sedimentation rate rbc automated Jay Woody Work Phone: Start: 02-10-2021 Ct head/brain w/o contrast material Darrius Woody Work Phone: Start: 09-27-2020 Us lmtd joint/oth nonvasc xtr strux r-t w/img Linda Penny Work Phone: Start: 06-24-2019 Urnls dip stick/tablet rgnt auto w/o microscopy Donnie Dubose Work Phone: Start: 06-24-2019 Radiologic exam knee complete 4/more views Donnie Dubose Work Phone: Start: 01-26-2019 Echocardiography Start: 01-12-2019 Follow-up visit Start: 03-20-2015 Colonoscopy Digna Hawkins ACID CONCENTRATOR - CLINICAL DATA MANAGEMENT MANAGER Work Phone: Start: 11-16-2010 Colonoscopy Monica Wynne PA-C Work Phone: Plan of Treatment Date Care Activity Detail Author Start: 03-20-2025 Colon cancer screen colonoscopy Colon cancer screen colonoscopy [place] Start: 03-20-2025 Screening for malignant neoplasm of colon [facility] Start: 05-25-2024 End: 05-25-2024 ambulatory 05/25/2024 2:00 PM EDT Infusion [facility] [address] [place] [phone] Stas Graham PA-C [address] [place], [place] [id number] Digna Hawkins, ACID CONCENTRATOR - CLINICAL DATA MANAGEMENT MANAGER [address] [place] [address] [facility] Start: 05-08-2024 Medicare Advantage Annual Wellness Visit (AWV) Medicare Advantage Annual Wellness Visit (AWV) [facility] Start: 04-11-2024 End: 04-11-2024 Patient encounter procedure [facility] Start: 04-08-2024 Hepatitis B surface antibody level LDL CHOLESTEROL [facility] Start: 03-18-2024 Glaucoma screening Diabetes: Retinopathy Screening [facility] Start: 11-25-2023 End: 11-25-2023 ambulatory 11/25/2023 2:00 PM EST Infusion [facility] [address] [place] [phone] Stas Graham, PA-C [address] [place] [address] Digna Hawkins, ACID CONCENTRATOR - CLINICAL DATA MANAGEMENT MANAGER [address] [place], [place] [id number] [facility] Start: 11-24-2023 End: 11-24-2023 ambulatory [facility] Start: 10-09-2023 Hemoglobin A1c/Hemoglobin.total in Blood HBA1C [facility] Start: 09-30-2023 Depresssion Monitoring Depresssion Monitoring [facility] Start: 09-10-2023 End: 09-10-2023 Patient encounter procedure [facility] Start: 08-20-2023 End: 08-20-2023 Patient encounter procedure 08/20/2023 1:45 PM EDT Office Visit [facility] [address] [place] [address] [place] [phone] [facility] Start: 07-23-2023 End: 07-23-2023 Patient encounter procedure 07/23/2023 11:20 AM EDT Office Visit [facility] [address] [place] [address] Sydnee Guerrero MD [address] [place] [address], [address] [place] [address] [facility] Start: 07-16-2023 COVID-19 Vaccine ( season) COVID-19 Vaccine () [facility] Start: 07-16-2023 Influenza vaccination [facility] Start: 07-06-2023 End: 07-06-2023 Patient encounter procedure [facility] Start: 07-05-2023 Hemoglobin A1c/Hemoglobin.total in Blood HBA1C [facility] Start: 05-26-2023 End: 05-26-2023 ambulatory 05/26/2023 3:00 PM EDT Infusion [facility] [address] [place] [phone] Stas Graham PA-C [address] [place] [address] Digna Hawkins, ACID CONCENTRATOR - CLINICAL DATA MANAGEMENT MANAGER [address] [place] [address] [facility] Start: 05-25-2023 End: 05-25-2023 ambulatory 05/25/2023 Infusion Infusion Therapy [facility] Start: 05-22-2023 Screening for osteoporosis Bone Density Scan [facility] Book[facility]Table Start: 05-20-2023 Screening for malignant neoplasm of breast Breast cancer screen [facility] Work Phone: Start: 05-11-2023 End: 05-11-2024 25-hydroxyvitamin D3 [Mass/volume] in Serum or Plasma Vitamin D 25 hydroxy Lab Routine Therapeutic drug monitoring Expected: 05/11/2023 (Approximate), Expires: 05/11/2024 [facility] Immunizations Immunization Date Immunization Notes Care Provider [facility] 07-30-2022 Influenza, High-dose Seasonal, Quadrivalent, Preservative Free Digna Hawkins ACID CONCENTRATOR - CLINICAL DATA MANAGEMENT MANAGER Work Phone: [facility] 07-30-2022 influenza virus vacc ine, unspecified formulation Chair 5 [facility] 06-21-2022 Covid-19, Pfizer Gra y Top, Do Not Dilute, (Age 12 Y+), Im, L Jalen Ng MD Work Phone: [facility] 08-28-2021 Pfizer SARS-CoV-2 Vaccination Jalen Ng MD Work Phone: [facility] 08-07-2021 influenza, high dose seasonal, preservative-free Jay Woody MD Work Phone: [facility] 08-07-2021 Influenza, High-dose Seasonal, Quadrivalent, Preservative Free Digna Hawkins ACID CONCENTRATOR - CLINICAL DATA MANAGEMENT MANAGER Work Phone: [facility] 02-25-2021 Pfizer SARS-CoV-2 Vaccination Jalen Ng MD Work Phone: [facility] 02-03-2021 Pfizer SARS-CoV-2 Vaccination Jalen Ng MD Work Phone: [facility] 07-17-2020 Influenza, Quadv, adjuvanted, 65 yrs +, IM, PF (Fluad) Jay Woody [facility] Work Phone: 08-14-2019 influenza, high dose seasonal, preservative-free [facility] 09-13-2018 influenza virus vacc ine, unspecified formulation [facility] 09-13-2017 influenza, high dose seasonal, preservative-free [facility] [place] 09-13-2017 pneumococcal polysaccharide vaccine, 23 valent [facility] [place] 09-10-2016 influenza, injectabl e, quadrivalent, contains preservative [facility] 09-09-2015 influenza virus vacc ine, unspecified formulation [facility] 09-27-2014 Influenza Vaccine, unspecified formulation [facility] , [place] 09-27-2014 pneumococcal conjuga te vaccine, 13 valent [facility] 09-14-2013 meningococcal polysaccharide (groups A, C, Y and W-135) diphtheria toxoid conjugate vaccine (MCV4P) [facility], [place] 09-14-2013 pneumococcal conjuga te vaccine, 13 valent [facility] [place] 08-06-2010 pneumococcal polysaccharide vaccine, 23 valent [facility] 08-07-2008 Influenza Vaccine, unspecified formulation [place], [place] Payers Date Payer Category Payer Unknown 2022 Unknown [id number] 2017 Private Health Insurance [facility] AARP SUPPLEMENT [id number] 2017-Present [phone] [address] [place] [address] Indemnity [id number] 2017 Private Health Insurance [facility] AARP SUPPLEMENT [id number] 2017-Present [phone] [address] [place] [address] Indemnity [id number] 2016 Private Health Insurance [facility] [id number] 2014 Medicare xxxxxxxxxxx [id number] 2011 Medicare [id number] 2011 Medicare MEDICARE MEDICAR E A AND B [id number] 2011-Present [phone] [place] [address] Medicare [id number] 2011 Medicare [id number] 1946 Unknown [id number] 1945 Unknown [id number] 1946 Unknown [id number] 1945 Unknown [id number] Social History Date Type Detail Facility Start: 06-24-2019 End: 03-30-2023 Tobacco smoking status NHIS Former smoker [facility] Start: 06-24-2019 End: 03-30-2023 Alcohol intake No [facility] Start: 1945 Sex Assigned At Not on file M [facility] RYAN Start: 11-02-2019 End: 08-20-2023 Alcohol intake Current non-drinker of alcohol (finding) [facility] [place] Start: 09-27-2020 End: 03-30-2023 Tobacco use and exposure [facility] used [facility] RYAN Vergara Start: 09-26-2020 End: 01-09-2022 History SDOH Social Connections Phone 3 [facility] [place] Start: 09-26-2020 End: 01-09-2022 History SDOH Social Connections Sikhism 1 [place] Start: 09-26-2020 End: 01-09-2022 History SDOH Social Connections Membership 2 [place] Start: 09-26-2020 End: 03-31-2022 History SDOH Physical Activity DPW 0 [facility] [place] Start: 09-26-2020 End: 01-09-2022 History SDOH Financial 5 [place] Start: 04-06-2022 End: 07-23-2023 Exposure to SARS-CoV-2 (event) Not sure [place] Start: 10-31-2020 End: 11-28-2020 Tobacco smoking status NHIS Never smoker [facility] Start: 11-28-2020 End: 03-30-2023 Alcohol intake [facility] Work Phone: Start: 11-15-1963 End: 11-15-1965 History of tobacco use Current smoker [facility] Start: 11-15-1963 End: 11-15-1965 History of tobacco use Cigarette Smoker [facility] Start: 02-10-2023 Tobacco Comment quit 40 yrs. ago [facility] Do you belong to any clubs or organizations such as yazidi groups, unions, fraternal or athletic groups, or school groups? No [facility] Are you now , , , , never or living with a partner? [facility] How often to you hav e a drink containing alcohol? Never [facility] How many standard dr inks containing alcohol do you have on a typical day? Patient does not drink [facility] How hard is it for y ou to pay for the very basics like food, housing, medical care, and heating Not very hard [facility] Do you feel stress - tense, restless, nervous, or anxious, or unable to sleep at night because your mind is troubled all the time - these days [OSQ] To some extent Ne[employer] (I/We) worried sherrie er (my/our) food would run out before (I/we) got money to buy more. Never true [employer] Book[facility]Table Start: 1945 Sex Assigned At Female S [facility] Start: 08-13-2023 Gender identity Identifies as female gender (finding) [facility] Medical Equipment Procedure Code Equipment Code Equipment Origin al Text Equipment Identifier Dates 1 each by In Vit ro route daily A [id number] Start: 09-12-2018 1 per day [id number] Start: 09-09-2018 1 each by Does n ot apply route daily [id number] Start: 09-12-2018 1 each by In Vit ro route daily A [id number] Start: 11-02-2019 1 each by In Vit ro route daily A [id number] Start: 06-12-2020 Stimulator-08/30 0 [id number] Start: 08-30-2020 Clinical Notes 04-16-2022 to 11-22-2023 Telephone Encounter - Jessi Gomez Analy - 11/22/2023 11:15 AM ESTTelephone Encounter - Jessi Beckford - 11/22/2023 11:15 AM ESTTelephone Encounter - Jessi Beckford - 11/05/2023 8:50 AM EST Note Date & Type Note Facility 11-22-2023 Telephone encounter Note New forms and auth were needed as other authorization only allowed 2 injections Auth approved through [employer] Auth#; [id number] Validity dates; 11.25.2023-11.24.2024 Clinicals sent for approval, approval letter and signed forms will be in media. Once signed, all orders will be given to Ava at [facility]. [facility] 11-22-2023 Miscellaneous Notes New forms and auth were needed as other authorization only allowed 2 injections Auth approved through [employer] Auth#; [id number] Validity dates; 11.25.2023-11.24.2024 Clinicals sent for approval, approval letter and signed forms will be in media. Once signed, all orders will be given to Ava at [facility]. All set. Deborah from [facility] reached out stating; [8:19 AM] Bety James, I have a old order for Clarissa Davis to come in for her Prolia and need to know if you want the labs repeated for BMP and Vit D. If this is the case can I please get a new order sent stating that or not to the office. Thanks Deborah Verbally spoke with Digna and she stated she would like them completed again before patient's appointment. Could not find correct order for Vitamin D, please see pended order for BMP. Route back to me once completed so that I can inform patient of labs Thank you!! documented in this encounter [facility] 11-05-2023 Telephone encounter Note pt insurance will not be changing she has [employer] 10/18/23 @ 1041 [facility] 11-05-2023 Miscellaneous Notes pt insurance will not be changing she has [place] [employer] [place] 10/18/23 @ 1041 documented in this encounter [facility] 11-05-2023 Telephone encounter Note All set. [facility] 11-05-2023 Telephone encounter Note Deborah from [facility] reached out stating; [8:19 AM] Bety James, I have a old order for Clarissa Davis to come in for her Prolia and need to know if you want the labs repeated for BMP and Vit D. If this is the case can I please get a new order sent stating that or not to the office. Tiarra Deborah Verbally spoke with Digna and she stated she would like them completed again before patient's appointment. Could not find correct order for Vitamin D, please see pended order for BMP. Route back to me once completed so that I can inform patient of labs Thank you!! [facility] 08-20-2023 History of Present illness Narrative Images from the original note were not included. [facility] [address] [place] [address] Dept: [phone] Dept Chief Complaint Patient presents with New Patient Left Hip Pain Subjective History of Present Illness: Clarissa Davis is a 78 y.o. female who presents today for evaluation of left hip pain. Location: generalized Onset: 35+ years, chronic, Flare up over the last 4 years Injury: no Quality: aching, sharp, shooting, stabbing, burning, tingling, and numbness hip to toes Mechanical symptoms: popping, crepitus, grinding, and instability Radiation of symptoms: low back into toes Severity: 4/10 at rest and 8/10 at worst Exacerbating factor(s): repetitive use, daily chores, walking, prolonged standing, prolonged sitting, climbing/descending stairs, and getting in/out of a car Relieving factor(s): rest Timing: all day Imaging to date: X-ray November 2022 [facility] has seen her for her hip and back. When she saw her orthopedic and a targeted injection in her hip joint did not give her relief. The SI guided injection gave her 2-3 months. Treatment to date: PT/OT/HEP: yes, formal physical therapy for 2 visits. Pt fell in bathroom Ice: yes, helpful Heat: yes, helpful Medications: Tylenol: yes, not helpful NSAIDs: no Oral steroids: no Muscle relaxants: no Nerve medications: no Targeted injections: Corticosteroid 02/2023. Helpful. Previous spinal injections from [facility] in [place] Assistive devices: straight cane Prior surgery: yes - Spinal Stenosis sx in 2006 Occupation: full time paramedic, [employer] Fall risk assessment: Completed today. Have you had 2 or more falls in the last year? Yes Have you had a fall with injury in the last year? Yes, pt fell at home, tripped and fell over the bathtub Do you feel unsteady or worried about falling? Yes Objective Visit Vitals BP 136/68 Physical Exam: General: Alert, well appearing, no acute distress. Respiratory: Breathing comfortably on room air. No respiratory distress. Skin: Warm, dry, intact. No visible rashes or erythema overlying area of focused exam. Physical Exam Musculoskeletal: Lumbar back: No swelling, deformity, spasms, tenderness or bony tenderness. Negative right straight leg raise test and negative left straight leg raise test. Right hip: Normal range of motion. Normal strength. Left hip: Normal range of motion. Decreased strength (Chronic prior to back surgery). Comments: Strength Testing Hip Flexors (T12-L3) normal strength right, left 4/5 weakness Quad (L2-L4) normal strength right, left 4/5 weakness Tibialis Anterior (L4) normal strength right, left 3/5 weakness Extensor Hallusis Longus (L5) normal strength right, left 3/5 weakness Peroneus Longus (S1) normal strength right, left 4/5 weakness Sensation Testing Lateral Thigh (L1-L2) intact to light touch bilateral, no paresthesia Medial Knee (L3) intact to light touch bilateral, no paresthesia Medial Calf, Medial Foot (L4) intact to light touch bilateral, no paresthesia Lateral Calf, 1st web space (L5) intact to light touch bilateral, no paresthesia Lateral Foot (S1) intact to light touch bilateral, no paresthesia External Notes No pertinent interval updates Labs Lab Results Component Value Date HGBA1C 7.6 (H) 04/08/2023 Lab Results Component Value Date CREATININE 1.11 (H) 05/20/2023 Imaging Images reviewed with patient today I have personally reviewed the images pertinent to the appointment today Hip x-rays, pelvis MRI EMG/NCT N/A Procedure No procedures completed today Assessment Diagnosis Plan 1. Sacroiliac joint dysfunction of both sides 2. Tear of left acetabular labrum, subsequent encounter [facility] Foot/Ankle Lower Extremities - Cha 3. Primary osteoarthritis of both hips Plan Multifactorial cause for lower extremity and hip area pain. In summary though she has had a femoral acetabular guided corticosteroid injection that gave her no relief in symptoms. So I do not think her hips are the underlying pathology I think her labral tear, discovered on MRI, is not a primary underlying cause. It is also not giving her any significant exam findings for her femoral acetabular joint. She does report that she received significant reduction in pain and benefit from a prior directed SI joint injection. This certainly could be contributing to some of her pain. Additionally she has a long history of spinal stenosis, associated neuropathy, left leg weakness all related to this issue. Her implanted pain stimulator remains in place. But it sounds like it has been over a year since she has seen pain management. I recommended that she follow-up with pain management. A SI injection can be performed at that location. Or other pain management modalities either continued or and advancement based on where she is and there treatment protocols. No follow-ups on file. Edith Rose MD 08/20/2023 1:26 PM Please note that portions of this note may have been completed with voice recognition software. Documentation reviewed prior to signing but minor errors in cylinder devalver may have occurred. documented in this encounter [facility] 08-02-2023 Telephone encounter Note Pt returned call stating she obtained MRI on disc. Scheduled with Dr René MONTIEL 08/20 VOLODYMYR [facility] 08-02-2023 Miscellaneous Notes Pt returned call stating she obtained MRI on disc. Scheduled with Dr René MONTIEL 08/20 FYI Pt called again asking if images had been received from [facility]. States she called [facility] twice yesterday and left VM's asking for images to be sent. Was not able to see if images had been sent. Advised Pt to call [facility] again to the main hospital line and ask for radiology that way. Advised Pt to call us back either way and we can get her scheduled with Dr Lan. VOLODYMYR Called and spoke with the patient directly. She wants to wait for the images to be uploaded prior to making an appointment. The patient does not want us calling her at this time for an appointment. She will call us when she is ready. Patient should NOT be scheduled with Tania. He does not treat hips of any time. Not sure if it would be sports medicine at all due to her age. Might have to go to joints. Name of Caller: Clarissa Contact Reason for Appointment: Pt requesting appt for Tear of left acetabular labrum. Referral is in epic. Pt states she had MRI performed at [facility]. Advised Pt to have images pushed from [facility] to [facility] and to call us back once confirms images are sent. Please schedule Pt with Dr Marin at [place] office when Pt calls back. Office Name: Dr Marin documented in this encounter [facility] 08-02-2023 Telephone encounter Note Pt returned call stating she obtained MRI on disc. Scheduled with Dr René MONTIEL 08/20 VOLODYMYR [facility] 08-02-2023 Miscellaneous Notes Pt returned call stating she obtained MRI on disc. Scheduled with Dr René MONTIEL 08/20 VOLODYMYR Called patient to tell her we are unable to receive imaging electronically. Advised her that if she calls the facility where she had the MRI done at they should be able to burn imaging on a disc that she can bring into our office to have reviewed to see if joints or SM would be a good fit for her to see Per Dr. Lan this patient would be better suited seeing PCSM or joints. She is not a surgical candidate for labral repair. Either way the patient will have to call and have her imaging sent over to us or arrange for her to poultry picker the imaging/interpretation to bring with her to her appointment. Name of caller: Clarissa Contact phone number: [phone] Relationship to Patient: patient Provider: Dr Lan Practice: Ortho Chief Complaint/Reason for Call: Pt calling to schedule appointment for a left acetabular labrum tear. Per notes she is to be scheduled with Dr Lan. Pt states her MRI was done on 06-25 at [facility] and the office is to call [phone] and get an electronic disc. Please advise Best time of day caller can be reached: any Patient advised that office/PCP has 24-48 business hours to return their call: no documented in this encounter [facility] 07-27-2023 Telephone encounter Note Called patient to tell her we are unable to receive imaging electronically. Advised her that if she calls the facility where she had the MRI done at they should be able to burn imaging on a disc that she can bring into our office to have reviewed to see if joints or SM would be a good fit for her to see [facility] 07-27-2023 Telephone encounter Note Per Dr. Lan this patient would be better suited seeing PCSM or joints. She is not a surgical candidate for labral repair. Either way the patient will have to call and have her imaging sent over to us or arrange for her to poultry picker the imaging/interpretation to bring with her to her appointment. T [facility] 07-27-2023 Telephone encounter Note Name of caller: Clarissa Contact phone number: [phone] Relationship to Patient: patient Provider: Dr Lan Practice: Ortho Chief Complaint/Reason for Call: Pt calling to schedule appointment for a left acetabular labrum tear. Per notes she is to be scheduled with Dr Lan. Pt states her MRI was done on 06-25 at [facility] and the office is to call [phone] and get an electronic disc. Please advise Best time of day caller can be reached: any Patient advised that office/PCP has 24-48 business hours to return their call: no [facility] 07-27-2023 Telephone encounter Note Pt called again asking if images had been received from [facility]. States she called [facility] twice yesterday and left VM's asking for images to be sent. Was not able to see if images had been sent. Advised Pt to call [facility] again to the [facility] line and ask for radiology that way. Advised Pt to call us back either way and we can get her scheduled with Dr Lan. VOLODYMYR T [facility] 07-27-2023 Miscellaneous Notes Pt called again asking if images had been received from [facility]. States she called [facility] twice yesterday and left VM's asking for images to be sent. Was not able to see if images had been sent. Advised Pt to call [facility] again to the [facility] line and ask for radiology that way. Advised Pt to call us back either way and we can get her scheduled with Dr Lan. VOLODYMYR Called and spoke with the patient directly. She wants to wait for the images to be uploaded prior to making an appointment. The patient does not want us calling her at this time for an appointment. She will call us when she is ready. Patient should NOT be scheduled with [facility]. He does not treat hips of any time. Not sure if it would be sports medicine at all due to her age. Might have to go to joints. Name of Caller: Clarissa Contact Reason for Appointment: Pt requesting appt for Tear of left acetabular labrum. Referral is in [facility]. Pt states she had MRI performed at [facility]. Advised Pt to have images pushed from [facility] to [facility] and to call us back once confirms images are sent. Please schedule Pt with Dr Marin at [facility] when Pt calls back. Office Name: Dr Marin documented in this encounter [facility] 07-26-2023 Telephone encounter Note Called and spoke with the patient directly. She wants to wait for the images to be uploaded prior to making an appointment. The patient does not want us calling her at this time for an appointment. She will call us when she is ready. Patient should NOT be scheduled with [facility]. He does not treat hips of any time. Not sure if it would be sports medicine at all due to her age. Might have to go to joints. [facility] 07-26-2023 Telephone encounter Note Name of Caller: Clarissa Contact Reason for Appointment: Pt requesting appt for Tear of left acetabular labrum. Referral is in epic. Pt states she had MRI performed at [facility]. Advised Pt to have images pushed from [facility] to [facility] and to call us back once confirms images are sent. Please schedule Pt with Dr Marin at [facility] when Pt calls back. Office Name: Dr Marin [facility] 07-23-2023 History of Present illness Narrative Subjective Patient ID: CLARISSA Davis is a 78 y.o. female who presents for Knee Pain (Fell on right knee in May, there is a lump in knee which is painful, not anybetter/Sees [facility] for Left hip, says MRI shows labrum tear- would like to discuss options) and Diabetes (Fasting BS this am was 147). Fell in the bathroom and landed on the right knee. Saw [facility] for the left hip. Has a labral tear. Wants to get a second opinion on what to do about the hip. Has fallen several times. Needs to use a walker Went to the ER after the fall. X rays of the knees were normal. Not doing any topicals. Chart reviewed Review of Systems Constitutional: Positive for activity change. Musculoskeletal: Positive for arthralgias and gait problem. Objective Physical Exam Vitals and nursing note reviewed. Musculoskeletal: General: Tenderness and deformity present. Comments: There is a lump over the right patella. Likely an inflamed bursa sac. It is tender to touch, but not red or warm to touch. Assessment/Plan Problem List Items Addressed This Visit None Visit Diagnoses Tear of left acetabular labrum, subsequent encounter - Primary Chronic, uncontrolled Had a steroid shot and that helped Would like to get another opinion about what to do for it Relevant Orders [facility] Foot/Ankle Lower Extremities - [place] Contusion of right knee, subsequent encounter Acute, uncontrolled Rest, brace Voltaren gel 3-4 times a day documented in this encounter [facility] 07-23-2023 Instructions Sydnee Guerrero MD - 07/23/2023 11:20 AM EDT Voltaren gel OTC. Apply to the knee 3-4 times a day. documented in this encounter [facility] 07-22-2023 Telephone encounter Note S: Patient spoke with [facility] nurse regarding right knee pain. B: Onset of symptoms/concern May. A: Pt states she fell back in May and landed on her knees and hit her sternum. Still having some issues with right knee pain - feels a bump in the middle of her knee which is painful when touched. Pt has trouble putting weight on her right knee. Denies fever, SOB, calf pain, leg pain. Pt states right knee is slightly discolored - still bruised; able to bend the knee and she is walking normally. R: Appt scheduled for eval tomorrow with Dr Guerrero. Ins verified. Pt to bring photo ID; Ins card to visit. Denies recent Covid exposure, symptoms or any testing. Pt to call back if any further ques or concerns. Reason for Disposition Patient wants to be seen Answer Assessment - Initial Assessment Questions 1. LOCATION and RADIATION: Where is the pain located? Right knee - middle 2. QUALITY: What does the pain feel like? (e.g., sharp, dull, aching, burning) Sharp at times when you touch it 3. SEVERITY: How bad is the pain? What does it keep you from doing? (Scale 1-10; or mild, moderate, severe) - MILD (1-3): doesn't interfere with normal activities - MODERATE (4-7): interferes with normal activities (e.g., work or school) or awakens from sleep, limping - SEVERE (8-10): excruciating pain, unable to do any normal activities, unable to walk Mild to mod 4. ONSET: When did the pain start? Does it come and go, or is it there all the time? In May after fall 5. RECURRENT: Have you had this pain before? If Yes, ask: When, and what happened then? Yes 6. SETTING: Has there been any recent work, exercise or other activity that involved that part of the body? No 7. AGGRAVATING FACTORS: What makes the knee pain worse? (e.g., walking, climbing stairs, running) When you touch the knee 8. ASSOCIATED SYMPTOMS: Is there any swelling or redness of the knee? Bump in middle of knee; looks bruised 9. OTHER SYMPTOMS: Do you have any other symptoms? (e.g., chest pain, difficulty breathing, fever, calf pain) No 10. : Is there any chance you are ? When was your last menstrual period? N/A Protocols used: Knee [id number] [facility] Book[facility]Table 07-22-2023 Miscellaneous Notes S: Patient spoke with [facility] nurse regarding right knee pain. B: Onset of symptoms/concern May. A: Pt states she fell back in May and landed on her knees and hit her sternum. Still having some issues with right knee pain - feels a bump in the middle of her knee which is painful when touched. Pt has trouble putting weight on her right knee. Denies fever, SOB, calf pain, leg pain. Pt states right knee is slightly discolored - still bruised; able to bend the knee and she is walking normally. R: Appt scheduled for eval tomorrow with Dr Guerrero. Ins verified. Pt to bring photo ID; Ins card to visit. Denies recent Covid exposure, symptoms or any testing. Pt to call back if any further ques or concerns. Reason for Disposition Patient wants to be seen Answer Assessment - Initial Assessment Questions 1. LOCATION and RADIATION: Where is the pain located? Right knee - middle 2. QUALITY: What does the pain feel like? (e.g., sharp, dull, aching, burning) Sharp at times when you touch it 3. SEVERITY: How bad is the pain? What does it keep you from doing? (Scale 1-10; or mild, moderate, severe) - MILD (1-3): doesn't interfere with normal activities - MODERATE (4-7): interferes with normal activities (e.g., work or school) or awakens from sleep, limping - SEVERE (8-10): excruciating pain, unable to do any normal activities, unable to walk Mild to mod 4. ONSET: When did the pain start? Does it come and go, or is it there all the time? In May after fall 5. RECURRENT: Have you had this pain before? If Yes, ask: When, and what happened then? Yes 6. SETTING: Has there been any recent work, exercise or other activity that involved that part of the body? No 7. AGGRAVATING FACTORS: What makes the knee pain worse? (e.g., walking, climbing stairs, running) When you touch the knee 8. ASSOCIATED SYMPTOMS: Is there any swelling or redness of the knee? Bump in middle of knee; looks bruised 9. OTHER SYMPTOMS: Do you have any other symptoms? (e.g., chest pain, difficulty breathing, fever, calf pain) No 10. : Is there any chance you are ? When was your last menstrual period? N/A Protocols used: Knee [id number] documented in this encounter [facility] 07-06-2023 Telephone encounter Note Todays fasting glucose was 155. She did her urine culture as well. Thank you please let her know results and any changes. [facility] 07-06-2023 Miscellaneous Notes Todays fasting glucose was 155. She did her urine culture as well. Thank you please let her know results and any changes. documented in this encounter [facility] 06-25-2023 Miscellaneous Notes Radiology Service Progress Note PATIENT NAME: Clarissa Davis DATE OF SERVICE: June 25, 2023 TIME: 2:45 PM PATIENT IDENTITY VERIFICATION COMPLETED USING TWO (2) IDENTIFIERS: Name and Date of confirmed by patient verbally and Name and Date of confirmed by identification band. FALL SCREENING: Has the patient had 2 falls in the last year or 1 fall with injury or currently using an Ambulatory Assistive Device (Walker, Cane, Wheelchair, Crutches, etc.)? No PATIENT GENDER DATA: Female. status: : No status: NO. PATIENT RELEVANT IMPLANT DATA REVIEWED: Yes RADIOLOGY DEPARTMENT: MR; Exam(s) Completed: Lower MSK: Hip, left PERIPHERAL IV DATA: Not applicable SIGNED BY: RT Aleyda(R) June 25, 2023 2:45 PM documented in this encounter [facility] 05-30-2023 Hospital Discharge instructions Lori Campo DO - 05/30/2023 1:16 PM EDT Please use Tylenol or Motrin at home for pain. Any worsening changing symptoms please return to the emergency department. The following attachments cannot be sent through Care Everywhere.Knee Pain Discharge Instructions (Indonesian)documented in this encounter [facility] 05-30-2023 Note Unremarkable plain films of the sternum. Please note that CT is more sensitive for evaluation of nondisplaced fracture. Report Dictated on Electronically Signed By: Yfn Alva MD Electronically Signed Date/Time: 05/30/2023 12:55 PM EDT [facility] 05-30-2023 Emergency department Note Patient to the ED via EMS for c/o fall into her bathtub this AM. Patient reports she was running to the bathroom, without her cane she typically uses to ambulate, and couldn't stop once she hit the bathroom. Patient hit her chest when she fell, as well as her knees. Breath sounds equal bilaterally, pain 6/10 noted. Patient appears anxious at this time. Patient has a history of asthma, and did take several puffs of her inhaler upon EMS arrival. Maryse Bowen RN 05/30/23 1211 [facility] 05-30-2023 Emergency department Note Patient to the ED via EMS for c/o fall into her bathtub this AM. Patient reports she was running to the bathroom, without her cane she typically uses to ambulate, and couldn't stop once she hit the bathroom. Patient hit her chest when she fell, as well as her knees. Breath sounds equal bilaterally, pain 6/10 noted. Patient appears anxious at this time. Patient has a history of asthma, and did take several puffs of her inhaler upon EMS arrival. Maryse Bowen RN 05/30/23 1211 Images from the original note were not included. EMERGENCY DEPARTMENT ENCOUNTER Pt Name: Clarissa Davis Birthdate 1945 Date of evaluation: 05/30/2023 ED Provider: Lori Campo DO CHIEF COMPLAINT Chief Complaint Patient presents with Fall Patient tripped in the bathroom, falling forward into the tub, hitting chest. No LOC, No head injuries; No thinners; Fell onto knees as well HISTORY OF PRESENT ILLNESS (Location/Symptom, Timing/Onset, Context/Setting, Quality, Duration, Modifying Factors, Severity) Note limiting factors. I wore appropriate PPE for the entirety of this encounter. HPI Clarissa Davis is a 77 y.o. who presents to the emergency department chest wall pain and knee pain. The patient states that she was hurrying to try to get to the bathroom, lost her balance fell forward landed on her 2 knees fell forward and hit her chest on the tub. States she did not hit her head no loss of consciousness, no blood thinners noted. Nursing Notes were reviewed. Limitations to history: Outside historians: REVIEW OF SYSTEMS Review of Systems Pertinent positives and negatives as per HPI PAST MEDICAL HISTORY Past Medical History: Diagnosis Date Asthma Atrial fibrillation (CMS/HCC) (FORM[facility]) H/O Clostridium difficile infection Hypertension Neuropathy Osteoporosis Palpitations PTSD (post-traumatic stress disorder) REM sleep behavior disorder Sleep apnea Sleep apnea SURGICAL HISTORY Past Surgical History: Procedure Laterality Date BREAST BIOPSY Right benign, 2021 BREAST SURGERY breast lump removed BUNIONECTOMY Bilateral CARPAL TUNNEL RELEASE L hand 2005. rt hand 2018 CATARACT EXTRACTION FL GUIDED ASPIRATION KNEE RIGHT Right 07/01/2022 [facility] BREAST BIOPSY RIGHT GALLBLADDER SURGERY HERNIA REPAIR HYSTERECTOMY 1986 partial hysterectomy OTHER SURGICAL HISTORY hiatal hernia repair and removal of part of pancreas d/t cyst, Endovenous Laser ablation of the right GSV; Ambulatory stab phlebectomies OTHER SURGICAL HISTORY neck fusion SPINE SURGERY 2006 Back SPINE SURGERY 2010 Cervical discectomy and fusion, C5-C6 TONSILLECTOMY AND ADENOIDECTOMY (HISTORICAL) TUBAL LIGATION UPPER GASTROINTESTINAL ENDOSCOPY 05/11/2016 Dr. Chaidez VARICOSE VEIN SURGERY 12/2014 right leg CURRENT MEDICATIONS Previous Medications ACETAMINOPHEN (TYLENOL) 500 MG TABLET Take 500 mg by mouth every 8 hours as needed. ALBUTEROL 108 (90 BASE) MCG/ACT INHALER Inhale 2 puffs every 6 hours as needed for wheezing. AMITRIPTYLINE (ELAVIL) 10 MG TABLET Take 3 tablets (30 mg) by mouth with evening meal. ASPIRIN 81 PO Take by mouth. CALCIUM CARBONATE 1500 (600 CA) MG TABLET Take 1 tablet by mouth in the morning and 1 tablet before bedtime. CHOLECALCIFEROL (VITAMIN D-3) 20 MCG (800 UNIT) TABLET Take by mouth. DENOSUMAB (PROLIA) 60 MG/ML SOLUTION PREFILLED SYRINGE Inject 1 mL (60 mg) under the skin Once for 1 dose. EMPAGLIFLOZIN (JARDIANCE) 10 MG Take 1 tablet (10 mg) by mouth daily. FLUOXETINE (PROZAC) 40 MG CAPSULE Take 1 capsule (40 mg) by mouth daily. GLIMEPIRIDE (AMARYL) 4 MG TABLET Take 1 tablet (4 mg) by mouth 2 times daily. HYDROCHLOROTHIAZIDE (HYDRODIURIL) 12.5 MG TABLET Take 1 tablet (12.5 mg) by mouth daily. METOPROLOL TARTRATE (LOPRESSOR) 50 MG TABLET Take 1 tablet (50 mg) by mouth 2 times daily. ONETOUCH ULTRA TEST STRIP ONE TIME DAILY ALLERGIES Fentanyl, Meperidine, Morphine, Buspirone, Meperidine hcl, Tramadol, Acetaminophen, Flavoxate, Flavoxate hcl, and Hydrocodone-acetaminophen FAMILY HISTORY Family History Problem Relation Name Age of Onset No Known Problems Son No Known Problems Maternal Grandmother Diabetes Mother Heart disease Mother Prostate cancer Father's Brother Depression Mother Alzheimer's disease Mother Other ([id number]) Father COPD Depression Father Colon cancer Father's Brother Colon cancer Father's Sister Breast cancer Maternal Cousin 54.00 COPD Sister Other cancer Father's Sister colon COPD Sister Psoriasis Sister No Known Problems Paternal Grandmother No Known Problems Maternal Grandfather High Blood Pressure Father Prostate cancer Paternal Grandfather No Known Problems Daughter Other ([id number]) Brother Heart issue SOCIAL HISTORY Social History Socioeconomic History Marital status: Tobacco Use Smoking status: Former Years: 2.00 Types: Cigarettes Quit date: 1966 Years since quittin.5 Smokeless tobacco: Never Vaping Use Vaping Use: Never used Passive vaping exposure: Yes (daughter used to smoke Ecigarette but has quit.) Substance and Sexual Activity Alcohol use: No Alcohol/week: 0.0 standard drinks of alcohol Drug use: Never Social Determinants of Health Financial Resource Strain: Low Risk (03/30/2023) Overall Financial Resource Strain (CARDIA) Difficulty of Paying Living Expenses: Not very hard Food Insecurity: No Food Insecurity (03/30/2023) Hunger Vital Sign Worried About Running Out of Food in the Last Year: Never true Ran Out of Food in the Last Year: Never true Transportation Needs: No Transportation Needs (03/30/2023) PRAPARE - Transportation Lack of Transportation (Medical): No Lack of Transportation (Non-Medical): No Physical Activity: Insufficiently Active (03/30/2023) Exercise Vital Sign Days of Exercise per Week: 2 days Minutes of Exercise per Session: 60 min Stress: Stress Concern Present (03/30/2023) [place] of Occupational Health - Occupational Stress Questionnaire Feeling of Stress : To some extent Social Connections: Moderately Integrated (03/30/2023) Social Connection and Isolation Panel [NHANES] Frequency of Communication with Friends and Family: More than three times a week Frequency of Social Gatherings with Friends and Family: Twice a week Attends Pentec[employer]al Services: More than 4 times per year Active Member of Clubs or Organizations: No Attends Club or Organization Meetings: Never Marital Status: Housing Stability: Low Risk (03/30/2023) Housing Stability Vital Sign Unable to Pay for Housing in the Last Year: No Number of Places Lived in the Last Year: 1 Unstable Housing in the Last Year: No SCREENINGS PHYSICAL EXAM ED Triage Vitals [05/30/23 1201] Temp Heart Rate Resp BP 36.4 C (97.5 F) 67 18 117/88 SpO2 Temp Source Heart Rate Source Patient Position 100 % Oral -- -- BP Location FiO2 (%) Left arm -- Physical Exam Vitals and nursing note reviewed. Constitutional: General: She is not in acute distress. Appearance: She is well-developed. HENT: Head: Normocephalic and atraumatic. Eyes: Conjunctiva/sclera: Conjunctivae normal. Cardiovascular: Rate and Rhythm: Normal rate and regular rhythm. Heart sounds: No murmur heard. Pulmonary: Effort: Pulmonary effort is normal. No respiratory distress. Breath sounds: Normal breath sounds. Chest: Comments: Erythematous ecchymotic contusion noted to the patient's chest wall Abdominal: Palpations: Abdomen is soft. Tenderness: There is no abdominal tenderness. Musculoskeletal: General: Tenderness present. No swelling. Cervical back: Neck supple. Legs: Comments: 2 x 2 centimeter erythematous ecchymosis noted lesions on the patella bilaterally. Skin: General: Skin is warm and dry. Capillary Refill: Capillary refill takes less than 2 seconds. Neurological: Mental Status: She is alert. Psychiatric: Mood and Affect: Mood normal. DIAGNOSTIC RESULTS RADIOLOGY (Per Emergency Physician): Interpretation per the Radiologist below, if available at the time of this note: XR sternum 2+ views Final Result Unremarkable plain films of the sternum. Please note that CT is more sensitive for evaluation of nondisplaced fracture. Report Dictated on Electronically Signed By: Yfn Alva MD Electronically Signed Date/Time: 05/30/2023 12:55 PM EDT XR knee 3 views bilateral Final Result No fracture or dislocation of the left knee or right knee is identified. Report Dictated on Electronically Signed By: Yfn Alva MD Electronically Signed Date/Time: 05/30/2023 12:50 PM EDT LABS: Labs Reviewed - No data to display All other labs were within normal range or not returned as of this dictation. EMERGENCY DEPARTMENT COURSE and DIFFERENTIAL DIAGNOSIS/MDM: Vitals: Vitals: 05/30/23 1201 BP: 117/88 BP Location: Left arm Pulse: 67 Resp: 18 Temp: 36.4 C (97.5 F) TempSrc: Oral SpO2: 100% Medications ketorolac (Toradol) injection 15 mg (15 mg IntraMUSCular Given 05/30/23 1224) At this time did present after a fall. She did land on her knees and hit her chest. No loss of consciousness no loss of consciousness no loss of, no history of blood thinners. At this time we did get x-rays of the knees bilaterally both of which were independently interpreted no fracture dislocation noted over read by radiology was consistent. In addition we did get sternum imaging and at this time was independently interpreted no fracture dislocations noted over read by radiology was consistent. Patient at this time is otherwise doing well we did give her some Toradol here in the emergency department she is feeling improved. We are going encouraged use of Tylenol or Motrin at home and she is can to be discharged home. MDM elements: The patient presented with chief complaint of chest pain, knee pain. The differential diagnosis associated with this patient's presentation includes knee fracture, knee dislocation, chest wall fracture. Our workup consisted of ordering/reviewing: Bilateral knee x-rays chest wall x-ray. Patient is in agreement with this plan. PROCEDURES: Unless otherwise noted below, none Procedures CRITICAL CARE TIME FINAL IMPRESSION 1. Fall, initial encounter 2. Acute pain of both knees 3. Chest wall pain DISPOSITION Discharge 05/30/2023 01:15:12 PM PATIENT REFERRED TO: Sydnee Guerrero MD [address] [place] [address], [id number] [place] [id number] DISCHARGE MEDICATIONS: New Prescriptions No medications on file (Comment: Please note this report has been produced using speech recognition software and may contain errors related to that system including errors in grammar, punctuation, and spelling, as well as words and phrases that may be inappropriate. If there are any questions or concerns please feel free to contact the dictating provider for clarification.) Lori Campo DO (electronically signed) Emergency Medicine Provider Lori Campo DO 05/30/23 1319 Bed: 05 Expected date: Expected time: Means of arrival: Comments: Rizwan Bashir RN 05/30/23 1157 documented in this encounter [facility] 05-30-2023 Emergency department Note Bed: 05 Expected date: Expected time: Means of arrival: Comments: Rizwan Bashir RN 05/30/23 1157 [facility] 05-30-2023 Physician Emergency department Note Images from the original note were not included. EMERGENCY DEPARTMENT ENCOUNTER Pt Name: Clarissa Davis Birthdate 1945 Date of evaluation: 05/30/2023 ED Provider: Lori Campo DO CHIEF COMPLAINT Chief Complaint Patient presents with Fall Patient tripped in the bathroom, falling forward into the tub, hitting chest. No LOC, No head injuries; No thinners; Fell onto knees as well HISTORY OF PRESENT ILLNESS (Location/Symptom, Timing/Onset, Context/Setting, Quality, Duration, Modifying Factors, Severity) Note limiting factors. I wore appropriate PPE for the entirety of this encounter. HPI Clarissa Davis is a 77 y.o. who presents to the emergency department chest wall pain and knee pain. The patient states that she was hurrying to try to get to the bathroom, lost her balance fell forward landed on her 2 knees fell forward and hit her chest on the tub. States she did not hit her head no loss of consciousness, no blood thinners noted. Nursing Notes were reviewed. Limitations to history: Outside historians: REVIEW OF SYSTEMS Review of Systems Pertinent positives and negatives as per HPI PAST MEDICAL HISTORY Past Medical History: Diagnosis Date Asthma Atrial fibrillation (CMS/HCC) (HCC) H/O Clostridium difficile infection Hypertension Neuropathy Osteoporosis Palpitations PTSD (post-traumatic stress disorder) REM sleep behavior disorder Sleep apnea Sleep apnea SURGICAL HISTORY Past Surgical History: Procedure Laterality Date BREAST BIOPSY Right benign, 2021 BREAST SURGERY breast lump removed BUNIONECTOMY Bilateral CARPAL TUNNEL RELEASE L hand 2005. rt hand 2018 CATARACT EXTRACTION [place] GUIDED ASPIRATION KNEE RIGHT Right 07/01/2022 [facility] BREAST BIOPSY RIGHT GALLBLADDER SURGERY HERNIA REPAIR HYSTERECTOMY 1986 partial hysterectomy OTHER SURGICAL HISTORY hiatal hernia repair and removal of part of pancreas d/t cyst, Endovenous Laser ablation of the right GSV; Ambulatory stab phlebectomies OTHER SURGICAL HISTORY neck fusion SPINE SURGERY 2007 Back SPINE SURGERY 2010 Cervical discectomy and fusion, C5-C6 TONSILLECTOMY AND ADENOIDECTOMY (HISTORICAL) TUBAL LIGATION UPPER GASTROINTESTINAL ENDOSCOPY 05/11/2016 Dr. Chaidez VARICOSE VEIN SURGERY 12/2014 right leg CURRENT MEDICATIONS Previous Medications ACETAMINOPHEN (TYLENOL) 500 MG TABLET Take 500 mg by mouth every 8 hours as needed. ALBUTEROL 108 (90 BASE) MCG/ACT INHALER Inhale 2 puffs every 6 hours as needed for wheezing. AMITRIPTYLINE (ELAVIL) 10 MG TABLET Take 3 tablets (30 mg) by mouth with evening meal. ASPIRIN 81 PO Take by mouth. CALCIUM CARBONATE 1500 (600 CA) MG TABLET Take 1 tablet by mouth in the morning and 1 tablet before bedtime. CHOLECALCIFEROL (VITAMIN D-3) 20 MCG (800 UNIT) TABLET Take by mouth. DENOSUMAB (PROLIA) 60 MG/ML SOLUTION PREFILLED SYRINGE Inject 1 mL (60 mg) under the skin Once for 1 dose. EMPAGLIFLOZIN (JARDIANCE) 10 MG Take 1 tablet (10 mg) by mouth daily. FLUOXETINE (PROZAC) 40 MG CAPSULE Take 1 capsule (40 mg) by mouth daily. GLIMEPIRIDE (AMARYL) 4 MG TABLET Take 1 tablet (4 mg) by mouth 2 times daily. HYDROCHLOROTHIAZIDE (HYDRODIURIL) 12.5 MG TABLET Take 1 tablet (12.5 mg) by mouth daily. METOPROLOL TARTRATE (LOPRESSOR) 50 MG TABLET Take 1 tablet (50 mg) by mouth 2 times daily. MyHeritageTOUCH ULTRA TEST STRIP ONE TIME DAILY ALLERGIES Fentanyl, Meperidine, Morphine, Buspirone, Meperidine hcl, Tramadol, Acetaminophen, Flavoxate, Flavoxate hcl, and Hydrocodone-acetaminophen FAMILY HISTORY Family History Problem Relation Name Age of Onset No Known Problems Son No Known Problems Maternal Grandmother Diabetes Mother Heart disease Mother Prostate cancer Father's Brother Depression Mother Alzheimer's disease Mother Other ([id number]) Father COPD Depression Father Colon cancer Father's Brother Colon cancer Father's Sister Breast cancer Maternal Cousin 54.00 COPD Sister Other cancer Father's Sister colon COPD Sister Psoriasis Sister No Known Problems Paternal Grandmother No Known Problems Maternal Grandfather High Blood Pressure Father Prostate cancer Paternal Grandfather No Known Problems Daughter Other ([id number]) Brother Heart issue SOCIAL HISTORY Social History Socioeconomic History Marital status: Tobacco Use Smoking status: Former Years: 2.00 Types: Cigarettes Quit date: 1965 Years since quittin.5 Smokeless tobacco: Never Vaping Use Vaping Use: Never used Passive vaping exposure: Yes (daughter used to smoke Ecigarette but has quit.) Substance and Sexual Activity Alcohol use: No Alcohol/week: 0.0 standard drinks of alcohol Drug use: Never Social Determinants of Health Financial Resource Strain: Low Risk (03/30/2023) Overall Financial Resource Strain (CARDIA) Difficulty of Paying Living Expenses: Not very hard Food Insecurity: No Food Insecurity (03/30/2023) Hunger Vital Sign Worried About Running Out of Food in the Last Year: Never true Ran Out of Food in the Last Year: Never true Transportation Needs: No Transportation Needs (03/30/2023) PRAPARE - Transportation Lack of Transportation (Medical): No Lack of Transportation (Non-Medical): No Physical Activity: Insufficiently Active (03/30/2023) Exercise Vital Sign Days of Exercise per Week: 2 days Minutes of Exercise per Session: 60 min Stress: Stress Concern Present (03/30/2023) [place] [facility] [employer] - Occupational Stress Questionnaire Feeling of Stress : To some extent Social Connections: Moderately Integrated (03/30/2023) Social Connection and Isolation Panel [NHANES] Frequency of Communication with Friends and Family: More than three times a week Frequency of Social Gatherings with Friends and Family: Twice a week Attends [employer] Services: More than 4 times per year Active Member of Clubs or Organizations: No Attends Club or Organization Meetings: Never Marital Status: Housing Stability: Low Risk (03/30/2023) Housing Stability Vital Sign Unable to Pay for Housing in the Last Year: No Number of Places Lived in the Last Year: 1 Unstable Housing in the Last Year: No SCREENINGS PHYSICAL EXAM ED Triage Vitals [05/30/23 1201] Temp Heart Rate Resp BP 36.4 C (97.5 F) 67 18 117/88 SpO2 Temp Source Heart Rate Source Patient Position 100 % Oral -- -- BP Location FiO2 (%) Left arm -- Physical Exam Vitals and nursing note reviewed. Constitutional: General: She is not in acute distress. Appearance: She is well-developed. HENT: Head: Normocephalic and atraumatic. Eyes: Conjunctiva/sclera: Conjunctivae normal. Cardiovascular: Rate and Rhythm: Normal rate and regular rhythm. Heart sounds: No murmur heard. Pulmonary: Effort: Pulmonary effort is normal. No respiratory distress. Breath sounds: Normal breath sounds. Chest: Comments: Erythematous ecchymotic contusion noted to the patient's chest wall Abdominal: Palpations: Abdomen is soft. Tenderness: There is no abdominal tenderness. Musculoskeletal: General: Tenderness present. No swelling. Cervical back: Neck supple. Legs: Comments: 2 x 2 centimeter erythematous ecchymosis noted lesions on the patella bilaterally. Skin: General: Skin is warm and dry. Capillary Refill: Capillary refill takes less than 2 seconds. Neurological: Mental Status: She is alert. Psychiatric: Mood and Affect: Mood normal. DIAGNOSTIC RESULTS RADIOLOGY (Per Emergency Physician): Interpretation per the Radiologist below, if available at the time of this note: XR sternum 2+ views Final Result Unremarkable plain films of the sternum. Please note that CT is more sensitive for evaluation of nondisplaced fracture. Report Dictated on Electronically Signed By: Yfn Alva MD Electronically Signed Date/Time: 05/30/2023 12:55 PM EDT XR knee 3 views bilateral Final Result No fracture or dislocation of the left knee or right knee is identified. Report Dictated on Electronically Signed By: Yfn Alva MD Electronically Signed Date/Time: 05/30/2023 12:50 PM EDT LABS: Labs Reviewed - No data to display All other labs were within normal range or not returned as of this dictation. EMERGENCY DEPARTMENT COURSE and DIFFERENTIAL DIAGNOSIS/MDM: Vitals: Vitals: 05/30/23 1201 BP: 117/88 BP Location: Left arm Pulse: 67 Resp: 18 Temp: 36.4 C (97.5 F) TempSrc: Oral SpO2: 100% Medications ketorolac (Toradol) injection 15 mg (15 mg IntraMUSCular Given 05/30/23 1224) At this time did present after a fall. She did land on her knees and hit her chest. No loss of consciousness no loss of consciousness no loss of, no history of blood thinners. At this time we did get x-rays of the knees bilaterally both of which were independently interpreted no fracture dislocation noted over read by radiology was consistent. In addition we did get sternum imaging and at this time was independently interpreted no fracture dislocations noted over read by radiology was consistent. Patient at this time is otherwise doing well we did give her some Toradol here in the emergency department she is feeling improved. We are going encouraged use of Tylenol or Motrin at home and she is can to be discharged home. MDM elements: The patient presented with chief complaint of chest pain, knee pain. The differential diagnosis associated with this patient's presentation includes knee fracture, knee dislocation, chest wall fracture. Our workup consisted of ordering/reviewing: Bilateral knee x-rays chest wall x-ray. Patient is in agreement with this plan. PROCEDURES: Unless otherwise noted below, none Procedures CRITICAL CARE TIME FINAL IMPRESSION 1. Fall, initial encounter 2. Acute pain of both knees 3. Chest wall pain DISPOSITION Discharge 05/30/2023 01:15:12 PM PATIENT REFERRED TO: Sydnee Guerrero MD [address] [place] [address], [address] [place] [id number] DISCHARGE MEDICATIONS: New Prescriptions No medications on file (Comment: Please note this report has been produced using speech recognition software and may contain errors related to that system including errors in grammar, punctuation, and spelling, as well as words and phrases that may be inappropriate. If there are any questions or concerns please feel free to contact the dictating provider for clarification.) Lori Campo DO (electronically signed) Emergency Medicine Provider Lori Campo DO 05/30/23 1319 [facility] 05-26-2023 History of Present illness Narrative Arrival Note Infusion Patient is here for Prolia Labs were not ordered - drawn outpatient. 1538 Prolia administered. Pt denies dental work, joint and jaw pain, is taking supplements. Has time and date of next apt, DC home without concern. documented in this encounter [facility] 05-17-2023 Miscellaneous Notes Patient read MC documented in this encounter [facility] 05-11-2023 Telephone encounter Note Signed orders received. All forms scanned into media and attached to this encounter. All signed forms given to Ava [facility]. [facility] 05-11-2023 Miscellaneous Notes Signed orders received. All forms scanned into media and attached to this encounter. All signed forms given to [facility]. I ordered labs to be completed prior to; paperwork completed. PT has next infusion on 05.26 and will need new forms. Forms have been filled out and are awaiting your signature on your desk, if still willing to follow. Last CMP collected on; 04.08.2023 with creatinine level @1.01 If you would like her to repeat this lab please see pended order. Once finished please return forms and encounter back to me so I may complete the process. Thank you! documented in this encounter [facility] 05-11-2023 Telephone encounter Note I ordered labs to be completed prior to; paperwork completed. [facility] 05-10-2023 Telephone encounter Note PT has next infusion on 05.26 and will need new forms. Forms have been filled out and are awaiting your signature on your desk, if still willing to follow. Last CMP collected on; 04.08.2023 with creatinine level @1.01 If you would like her to repeat this lab please see pended order. Once finished please return forms and encounter back to me so I may complete the process. Thank you! [facility] 05-05-2023 Surgical operation note BRIEF OP NOTE LOG ID: [id number] Surgery/Procedure Date: 05/05/2023 Surgeon(s)/Proceduralist(s) and Wolf Hunter(s): Regina Velasco APRN.CNP Procedure(s): Imaging guided left hip pain injection Anesthesia: local 5 ml lidocaine Findings: Successful left hip pain injection of 3ccLidocaine 1% and Kenalog 40mg/ml - 2 cc's . Pre-procedure pain of 6/10 Post-procedure pain of 0/10 Estimated Blood Loss: <1 ml Specimens: None Complications: None Pre-Op/Pre-Procedure Diagnosis: left hip pain Post-Op/Post-Procedure Diagnosis: same SIGNATURE: Regina Velasco APRN.CNP PATIENT NAME: Clarissa Davis DATE: May 05, 2023 TIME: 8:39 AM PAGER/CONTACT #: documented in this encounter [facility] 04-23-2023 Note HNO ID: [id number] Author: Edith Ontiveros PA-C Service: ? Author Type: Physician Wolf Hunter Type: Progress Notes Filed: 04/23/2023 1:42 PM Note Text: CHIEF COMPLAINT: Clarissa Davis is a 77 year old female who presents today for new evaluation of left groin pain and left buttock pain. HISTORY OF PRESENT ILLNESS: Patient notes that this pain has been present for a year and getting worse. She has a h/o prior back surgery in 2006 and a recent SI joint injection. When pointing to her pain she points to left buttocks and states it radiates up along the spine. She also c/o some occasional groin pain Patient does not recall any specific injury. Patient notes that this pain started insidiously with no inciting event. She notes that pain is localized to the left groin and left posterior hip. She notes the pain to be constant, sharp, shooting, achy, and deep. She notes that this problem exhibits aggravating factors of prolonged standing, prolonged sitting, regular daily ambulation, and sleeping on the affected side. She notes that this problem exhibits no specific alleviating factors. She notes moderate interruption of sleep from the symptoms. She notes radicular back pain on the left to the buttock. Patient notes associated symptoms of grinding of the hip with motion. Treatments so far have included medication (Tylenol) and the assistive use of a cane. Activity level: patient is normally sedentery with minimal daily exercise REVIEW OF SYMPTOMS: Constitutional: patient denies any recent fever or significant change in weight Gastrointestinal: patient denies any current abdominal discomfort Musculoskeletal: as noted in the HPI Neurologic: as noted in the HPI SOCIAL HISTORY: Tobacco Use: .15 packs/day, for 2 years. Quit 11/15/1965. Types: Cigarettes ALLERGIES: ALLERGIES Allergen Reactions Demerol [Meperidine* Rash Fentanyl Citrate Itching Morphine GI Upset, Anaphylaxis Urispas [Flavoxate * Rash Hydrocodone-Acetami* Itching PAST MEDICAL HISTORY: PAST MEDICAL HISTORY Diagnosis Date Abdominal pain Asthma 07/10/2010 Atrial fibrillation (HCC) 07/10/2010 Cyst and pseudocyst of pancreas 09/01/2016 Diabetes (HCC) Diarrhea Dysphagia Gas Gas pain GERD (gastroesophageal reflux disease) 07/10/2010 Hypertension 07/10/2010 Nausea Nausea PMH - PAST MEDICAL HISTORY OF atrial fib PMH - PAST MEDICAL HISTORY OF lower back problems PMH - PAST MEDICAL HISTORY OF high cholesteral Pulmonary hypertension (HCC) 07/10/2010 Sleep apnea 07/10/2010 Unspecified essential hypertension PHYSICAL EXAMINATION: Patient's vitals and nursing notes were reviewed. Vitals: Ht 5' 2 (1.58m) Wt 140 lb (63.5kg) BMI 25.60 kg/(m2). Skin: Skin color, texture, turgor normal, no suspicious rashes or lesions noted Psychiatric: mood and affect are appropriate, patient is oriented to time, place and person General Appearance: Well appearing, alert, in no acute distress, well-hydrated, and well nourished Cardiovascular: pedal pulses and radial pulses normal, no signs of upper or lower extremity edema Respiratory: no respiratory distress, no audible wheezing, no labored breathing, symmetric thoracic excursion Neurologic: bilateral deep tendon reflexes are normal and symmetric with no pathologic reflexes, sensation is grossly intact Lymphatic: no lymph node enlargement noted in the examined area Musculoskeletal Examination: ROM: restricted range of motion secondary to pain Muscle Strength: PSOAS (L2,3): 4-/5 Gluteus (L5,S1,2): 4-/5 Quadriceps (L3,4): 4-/5 Adductor: 4-/5 Gluteal: 4-/5 Neurologic: Sensation: L2-S1 symmetrically normal, Heel walk: inability to complete this test today Toe walk: inability to complete this test today Reflexes: Patellar (L4): 3/4 right, 3/4 left Achilles (S1): 1/4 right, 1/4 left Special Tests: Straight Leg Raise (SLR): positive on the right Log Roll: positive on the left IMAGING: Final results and radiologist's interpretation, available in the [facility] health record. Images were reviewed with the patient/family members in the office today. My personal interpretation of the performed imaging is chronic degenerative changes, moderate central and inferior. CLINICAL IMPRESSION / ASSESSMENT: (M47.816) Facet arthritis of lumbar region (primary encounter diagnosis) (M16.12) Primary osteoarthritis of left hip RECOMMENDATION / PLAN: Intra-articular hip injection ordered to help with groin pain and to sort out hip vs back etiology Follow up: if symptoms persist or worsen Films prior to visit: If this regimen does not provide pain relief, we will investigate further with advanced imaging. Verbal health education was given to patient. Patient verbalizes understanding and agrees with the treatment plan as detailed above. Edith Ontiveros PA-C [facility] 04-23-2023 Note HNO ID: [id number] Author: DIMITRIS Joy Service: Radiology Author Type: Technologist Type: Progress Notes Filed: 04/23/2023 12:26 PM Note Text: Radiology Service Progress Note PATIENT NAME: Clarissa Davis DATE OF SERVICE: April 23, 2023 TIME: 12:26 PM PATIENT IDENTITY VERIFICATION COMPLETED USING TWO (2) IDENTIFIERS: Name and Date of confirmed by patient verbally. FALL SCREENING: Has the patient had 2 falls in the last year or 1 fall with injury or currently using an Ambulatory Assistive Device (Walker, Cane, Wheelchair, Crutches, etc.)? No PATIENT GENDER DATA: Female. status: : No status: NO. PATIENT RELEVANT IMPLANT DATA REVIEWED: Not Applicable RADIOLOGY DEPARTMENT: General X-ray: Exam(s) Completed: Pelvis X-Ray: Pelvis General AP PERIPHERAL IV DATA: Not applicable SIGNED BY: DIMITRIS Joy April 23, 2023 12:26 PM [facility] 03-11-2023 History of Present illness Narrative Images from the original note were not included. [facility] [address] [facility] [address] [facility] [address] Dept: [phone] Dept Loc: [phone] Visit type: Established Patient Reason for Visit: Follow-up, Numbness, and Sleep Apnea Assessment and Plan 1. Bilateral low back pain with sciatica, sciatica laterality unspecified, unspecified chronicity - External referral to Pain Medicine 2. Chronic pain of both hips - External Referral to Orthopedic Surgery 3. Obstructive sleep apnea - PAP therapy 4. Parasomnia, unspecified type Subjective HPI: Per report today, the patient is wearing the positive airway pressure every night. The mask is not leaking. The patient is sleeping through the night with the mask on. The patient reports that the mask is providing refreshing sleep. I reviewed the on-line data from the patient's device today. 12/22/2022 - 03/11/2023 : 1945 Age: 77 years Gender: Female [facility] - [address] [place] [address], [id number] Compliance Report Compliance Payor Standard Usage 12/22/2022 - 03/11/2023 Usage days 78/80 days (98%) >= 4 hours 78 days (98%) < 4 hours 0 days (0%) Usage hours 532 hours 8 minutes Average usage (total days) 6 hours 39 minutes Average usage (days used) 6 hours 49 minutes Median usage (days used) 6 hours 56 minutes Total used hours (value since last reset - 03/11/2023) 8,524 hours AirSense 10 AutoSet Serial number [id number] Mode CPAP Set pressure 7 cmH2O EPR Off Therapy Leaks - L/min Median: 0.1 95th percentile: 5.5 Maximum: 13.0 Events per hour AI: 0.6 HI: 0.4 AHI: 1.0 Apnea Index Central: 0.4 Obstructive: 0.1 Unknown: 0.0 RERA Index 0.5 She reports that she is up during the night. She has had parasomnias, like telling her that there was a bear in the room, but not as frequently as before. She has been getting evaluated by doctors out in [place] regarding her lower back pain. She feels like her numbness and pins and needles is worse. The amitriptyline was helping, but since her fall at a doctor's office she has had the numnbess and tingling higher up the leg and it starts more quickly when she stands up. REVIEW OF SYSTEMS: Review of Systems Constitutional: Negative for appetite change, chills, diaphoresis, fever and unexpected weight change. HENT: Negative for dental problem and mouth sores. Eyes: Negative for discharge and itching. Respiratory: Negative for chest tightness. Cardiovascular: Negative for chest pain and leg swelling. Gastrointestinal: Negative for rectal pain and vomiting. Endocrine: Negative for polydipsia, polyphagia and polyuria. Genitourinary: Negative for decreased urine volume, flank pain and genital sores. Musculoskeletal: Negative for arthralgias. Skin: Negative for color change. Allergic/Immunologic: Negative for food allergies and immunocompromised state. Hematological: Negative for adenopathy. Does not bruise/bleed easily. Psychiatric/Behavioral: Negative for agitation, behavioral problems, decreased concentration, sleep disturbance and suicidal ideas. Allergies Allergen Reactions Fentanyl Hives and Itching Meperidine Rash Morphine Anaphylaxis and Shortness of breath Other reaction(s): discomfort in stomach, GI Upset, Unknown Stomach discomfort Meperidine Hcl Other reaction(s): rash, Unknown Rash Acetaminophen Itching Flavoxate Rash Rash Flavoxate Hcl Rash Hydrocodone-Acetaminophen Itching Other reaction(s): Unknown Current Outpatient Medications: albuterol 108 (90 Base) MCG/ACT inhaler, Inhale 2 puffs every 6 hours as needed for wheezing., Disp: 18 g, Rfl: 11 amitriptyline (Elavil) 10 MG tablet, Take 3 tablets (30 mg) by mouth every evening., Disp: 270 tablet, Rfl: 1 ASPIRIN 81 PO, Take by mouth., Disp: , Rfl: calcium carbonate 1500 (600 Ca) MG tablet, Take 1 tablet by mouth in the morning and 1 tablet before bedtime., Disp: , Rfl: cholecalciferol (Vitamin D-3) 20 MCG (800 UNIT) tablet, Take by mouth., Disp: , Rfl: FLUoxetine (PROzac) 40 MG capsule, Take 1 capsule (40 mg) by mouth daily., Disp: 90 capsule, Rfl: 3 glimepiride (Amaryl) 4 MG tablet, Take 1 tablet (4 mg) by mouth 2 times daily., Disp: 180 tablet, Rfl: 3 hydroCHLOROthiazide (HYDRODiuril) 12.5 MG tablet, Take 1 tablet (12.5 mg) by mouth daily., Disp: 90 tablet, Rfl: 3 metFORMIN (Glucophage) 500 MG tablet, Take 1 tablet (500 mg) by mouth in the morning and 1 tablet (500 mg) in the evening. Take with meals., Disp: 180 tablet, Rfl: 3 metoprolol tartrate (Lopressor) 50 MG tablet, Take 1 tablet (50 mg) by mouth 2 times daily., Disp: 180 tablet, Rfl: 3 acetaminophen (Tylenol) 500 MG tablet, Take 500 mg by mouth every 8 hours as needed., Disp: , Rfl: amitriptyline (Elavil) 10 MG tablet, Take 3 tablets (30 mg) by mouth with evening meal., Disp: 270 tablet, Rfl: 3 clonazePAM (KlonoPIN) 0.25 MG disintegrating tablet, TAKE 1/2 TABLET BY MOUTH EVERY EVENING, Disp: , Rfl: denosumab (Prolia) 60 MG/ML solution prefilled syringe, Inject 1 mL (60 mg) under the skin Once for 1 dose., Disp: 1 mL, Rfl: 0 dicyclomine (Bentyl) 10 MG capsule, TAKE 1 CAPSULE BY MOUTH THREE TIMES DAILY NEEDED (FOR ABDOMINAL PAIN)., Disp: , Rfl: sucralfate (Carafate) 1 g tablet, TAKE 1 TABLET BY MOUTH TWICE DAILY. CAN DISSOLVE IN ONE TABLESPOON OF LIQUID IF UNABLE TO SWALLOW, Disp: , Rfl: Past Medical History: Diagnosis Date Asthma Atrial fibrillation (CMS/HCC) (HCC) H/O Clostridium difficile infection Hypertension Neuropathy Osteoporosis Palpitations PTSD (post-traumatic stress disorder) REM sleep behavior disorder Sleep apnea Sleep apnea Social History Tobacco Use Smoking status: Former Types: Cigarettes Smokeless tobacco: Never Substance Use Topics Alcohol use: No Alcohol/week: 0.0 standard drinks Past Surgical History: Procedure Laterality Date BREAST BIOPSY Right benign, 2021 BREAST SURGERY breast lump removed BUNIONECTOMY Bilateral CARPAL TUNNEL RELEASE L hand 2005. rt hand 2018 CATARACT EXTRACTION [place] GUIDED ASPIRATION KNEE RIGHT Right 07/01/2022 [facility] LOC BREAST BIOPSY RIGHT GALLBLADDER SURGERY HERNIA REPAIR HYSTERECTOMY 1986 partial hysterectomy OTHER SURGICAL HISTORY hiatal hernia repair and removal of part of pancreas d/t cyst, Endovenous Laser ablation of the right GSV; Ambulatory stab phlebectomies OTHER SURGICAL HISTORY neck fusion SPINE SURGERY 2007 Back SPINE SURGERY 2010 Cervical discectomy and fusion, C5-C6 TONSILLECTOMY AND ADENOIDECTOMY (HISTORICAL) TUBAL LIGATION UPPER GASTROINTESTINAL ENDOSCOPY 05/11/2016 Dr. Chaidez VARICOSE VEIN SURGERY 12/2014 right leg Family History Problem Relation Name Age of Onset No Known Problems Son No Known Problems Maternal Grandmother Diabetes Mother Heart disease Mother Prostate cancer Father's Brother Depression Mother Alzheimer's disease Mother Other ([id number]) Father COPD Depression Father Colon cancer Father's Brother Colon cancer Father's Sister Breast cancer Maternal Cousin 54.00 COPD Sister Other cancer Father's Sister colon COPD Sister Psoriasis Sister No Known Problems Paternal Grandmother No Known Problems Maternal Grandfather High Blood Pressure Father Prostate cancer Paternal Grandfather No Known Problems Daughter Other ([id number]) Brother Heart issue Objective Vitals: BP 124/75 (BP Location: Left arm) Pulse 69 Wt 144 lb (65.3 kg) BMI 26.34 kg/m General Appearance: Patient is in no apparent distress. Head is normocephalic, atraumatic Cardiovascular: Regular rate and rhythm. No heart murmurs. No carotid bruit Neurologic: Mentation: Alert and oriented x 3 [address], place and time. Speech and Language: Speech and language normal Concentration and Attention: Concentration normal Memory: Memory normal Fund of Knowledge: Fund of knowledge normal Cranial Nerves: II, III, IV, V, , VII, VIII, IX, X, XI, XII examined and were intact. Motor: Strength: Strength 5 out of 5 with normal tone Alternating Movements: Normal Cogwheel Rigidity: None Tone: Tone is normal Tremor / Involuntary Movements: None Deep Tendon Reflexes: 1 out of 4 symmetrical in all four limbs. Coordination: Normal coordination upper and lower extremities Gait and Station: Station is normal. Gait is arthralgic Data Reviewed and Summarized DIAGNOSTIC TESTING Patient Name: CLARISSA DAVIS Exam Date/Time: 12/08/2022 12:24 Procedure: XR HIPS BILATERAL 5+ VW WITH OR WITHOUT PELVIS Ordering Provider: LIZ ANDREA Reason For Exam: PELVIS AND BILATERAL HIPS: CLINICAL INDICATION: Acute bilateral hip pain. TECHNIQUE: AP pelvis along with two views of each hip COMPARISON: 12/08/2022 lumbar spine radiographs FINDINGS: There is no evidence for fracture or dislocation. Bilateral hip osteoarthritis is observed, left greater than right, with joint space narrowing and osteophytosis observed. The sacroiliac joints are normal. Multilevel degenerative changes of the inferior lumbar spine are noted, better discussed on same-day lumbar spine radiographs. Postsurgical changes compatible with hernia repair are noted, with spinal stimulator device also observed. IMPRESSION: Left greater than right hip osteoarthritis with joint space narrowing and osteophytosis. Multilevel degenerative changes of the inferior lumbar spine. Report Dictated on Electronically Signed By: Enrico Madison Electronically Signed Date/Time: 12/10/2022 10:16 AM EST LUMBAR SPINE CLINICAL INDICATION: Back pain AP and lateral plain films of the lumbar spine were obtained. An additional coned down view of L5/S1 was also performed in the lateral projection. COMPARISON: None. FINDINGS: There is grade 1 degenerative anterolisthesis at L4-5 secondary to severe facet arthrosis bilaterally. Mild retrolisthesis is present at L2-3. There is no vertebral compression deformity or osseous lesion. The intervertebral disc spaces are overall well-maintained except for mild disc height loss at L2-3. There is also advanced degenerative facet arthrosis at L5-S1. The patient is status post L3 and L4 laminectomies. Spinal stimulator electrodes are in place. Multiple surgical clips in the epigastric region. Herniorrhaphy material in the right lower abdomen. IMPRESSION: Severe degenerative facet arthrosis bilaterally in the lower lumbar spine with grade 1 anterolisthesis at L4-5. No acute osseous findings. Report Dictated on Electronically Signed By: Nikita Patiño Electronically Signed Date/Time: 12/09/2022 4:32 PM EST CBC: Lab Results Component Value Date WBC 6.1 11/02/2019 RBC 4.57 11/02/2019 HGB 12.3 11/02/2019 MCV 82.0 11/02/2019 MCH 26.8 11/02/2019 MCHC 32.7 11/02/2019 RDW 14.4 11/02/2019 MPV 7.3 (L) 11/02/2019 CMP: Lab Results Component Value Date NA 137 03/31/2022 K 3.7 03/31/2022 CL 100 03/31/2022 CO2 29 10/16/2022 BUN 18 10/16/2022 CREATININE 1.13 (H) 10/16/2022 AGRATIO 1.8 10/16/2022 GLUCOSE 134 (H) 10/16/2022 PROT 6.7 10/16/2022 CALCIUM 9.3 10/16/2022 BILITOT 0.5 10/16/2022 ALKPHOS 90 10/16/2022 AST 19 10/16/2022 ALT 20 10/16/2022 BMP: Lab Results Component Value Date NA 137 03/31/2022 K 3.7 03/31/2022 CL 100 03/31/2022 CO2 29 10/16/2022 BUN 18 10/16/2022 CREATININE 1.13 (H) 10/16/2022 CALCIUM 9.3 10/16/2022 GLUCOSE 134 (H) 10/16/2022 PT/INR: No results found for: PROTIME, INR PTT: No results found for: APTT, PTT[APTT} FLP: Lab Results Component Value Date TRIG 158 (A) 03/31/2022 HDL 74 (H) 03/31/2022 TSH: Lab Results Component Value Date TSH 1.301 02/10/2021 VITAMIN B12: VITAMIN B12 Date Value Ref Range Status 02/10/2021 486 239 - 931 pg/mL Final No results found for: PHENYTOIN, PHENOBARB, VALPROATE, CBMZ No components found for: TOPIRA @RESULTINGLABINFO@ C REACTIVE PROTEIN Date Value Ref Range Status 02/10/2021 <5.0 0.0 - 6.0 mg/L Final Comment: . No results found for: CRYSTAL, IMMUNOGLOBUL, OLIGOBANDS No results found for: NRQ21VN, HEPCAB C REACTIVE PROTEIN Date Value Ref Range Status 02/10/2021 <5.0 0.0 - 6.0 mg/L Final Comment: . FERRITIN: No results found for: FERRITIN ---- Right breast US limited Narrative: Patient Name: CLARISSA DAVIS : 1945 Exam Date/Time: 01/05/2023 11:34 Procedure: BI US BREAST LIMITED RIGHT Ordering Provider: HAWKINS JENNIFER Reason For Exam: ABNORMAL MAMMOGRAM COMPARISONS: 05/22/2022, 06/09/2022 MAMMOGRAM: Image views: 2D CC and MLO views were acquired. 3D CC and MLO views were acquired. Markings on images: BB's = Nipples; skin lesions Open eek = Palpable Line = Scar TISSUE DENSITY: BIRADS B - There are scattered fibroglandular densities. Images were reviewed with CAD. FINDINGS: Patient is a 77-year-old who presents for short-term follow-up following a benign biopsy of the right breast. Additionally, the patient presents for short-term follow-up for probable benign right breast masses. A tissue marker is redemonstrated in the upper outer quadrant of the right breast at the mid depth. There has been no suspicious change. No spiculated masses, parenchymal distortion or suspicious tumor calcifications are seen. There is no skin thickening or nipple retraction. The patient was sent for follow-up ultrasound. BREAST ULTRASOUND: FINDINGS: A sonogram of the right breast was performed. At the 12:00 position 2 cm from the nipple there is a circumscribed hypoechoic avascular mass measuring 0.4 x 0.4 x 0.2 cm. There is been no suspicious change. A second circumscribed hypoechoic mass at the 12:00 position 1 cm from the nipple is redemonstrated measuring 0.7 x 0.7 x 0.3 cm without suspicious change. Impression: Probable benign no right breast masses. Continued surveillance is recommended. ASSESSMENT: Category 3 Probably benign RECOMMENDATION: Diagnostic mammogram in 6 months Bilateral Breast ultrasound in 6 months Right Report Dictated on Electronically Signed By: Laura Victor Electronically Signed Date/Time: 01/05/2023 10:56 AM EST Right diagnostic mammogram with tomosynthesis Narrative: Patient Name: CLARISSA DAVIS : 1945 Exam Date/Time: 01/05/2023 10:19 Procedure: BI MAMMOGRAM DIAGNOSTIC TOMOSYNTHESIS RIGHT Ordering Provider: HAWKINS JENNIFER Reason For Exam: ABNORMAL MAMMOGRAM COMPARISONS: 05/22/2022, 06/09/2022 MAMMOGRAM: Image views: 2D CC and MLO views were acquired. 3D CC and MLO views were acquired. Markings on images: BB's = Nipples; skin lesions Open eek = Palpable Line = Scar TISSUE DENSITY: BIRADS B - There are scattered fibroglandular densities. Images were reviewed with CAD. FINDINGS: Patient is a 77-year-old who presents for short-term follow-up following a benign biopsy of the right breast. Additionally, the patient presents for short-term follow-up for probable benign right breast masses. A tissue marker is redemonstrated in the upper outer quadrant of the right breast at the mid depth. There has been no suspicious change. No spiculated masses, parenchymal distortion or suspicious tumor calcifications are seen. There is no skin thickening or nipple retraction. The patient was sent for follow-up ultrasound. BREAST ULTRASOUND: FINDINGS: A sonogram of the right breast was performed. At the 12:00 position 2 cm from the nipple there is a circumscribed hypoechoic avascular mass measuring 0.4 x 0.4 x 0.2 cm. There is been no suspicious change. A second circumscribed hypoechoic mass at the 12:00 position 1 cm from the nipple is redemonstrated measuring 0.7 x 0.7 x 0.3 cm without suspicious change. Impression: Probable benign no right breast masses. Continued surveillance is recommended. ASSESSMENT: Category 3 Probably benign RECOMMENDATION: Diagnostic mammogram in 6 months Bilateral Breast ultrasound in 6 months Right Report Dictated on Electronically Signed By: Laura Victor Electronically Signed Date/Time: 01/05/2023 10:56 AM EST IMPRESSION and PLAN: Diagnosis Plan 1. Bilateral low back pain with sciatica, sciatica laterality unspecified, unspecified chronicity External referral to Pain Medicine 2. Chronic pain of both hips External Referral to Orthopedic Surgery 3. Obstructive sleep apnea PAP therapy 4. Parasomnia, unspecified type She is to see Dr. Joyner as she has worsening of her chronic low back pain with sciatica in the legs. She is to see Dr. Russell whom she has seen for leg joint pain in the past. She is compliant and PAP therapy is working. Continue the 30 mg of amitriptyline to prevent parasomnias and also to help her sleep despite the back pain. She can reduce the amitriptyline to 20 mg if she would like (dry mouth). No problem-specific Assessment & Plan notes found for this encounter. JALEN NG MD I spent 40 minutes caring for this patient today, reviewing labs, records, seeing the patient, documenting in the record and arranging for studies. @SIGNATURE@ documented in this encounter [facility] 03-09-2023 Note HNO ID: [id number] Author: Regina Peña PT Service: ? Author Type: Physical Therapist Type: Progress Notes Filed: 03/09/2023 11:00 AM Note Text: 03/09/2023 [facility] PHYSICAL THERAPY DISCONTINUANCE OF CARE Plan of Care Period: Start of Care Date: 01/21/23 Last Visit Date: 02/02/2023 Therapy Program: The following is a summary of the interventions provided for this episode of care; Therapeutic exercise, Self-prison management, and Patient/Family/Caregiver Education Assessment: Based on most recent visit, patient was progressing as expected toward functional goals based on pain levels and documented subjective information on progress. Unable to formally assess goal achievement, as patient has not returned to therapy or scheduled additional follow-up appointments. Reason for Discontinuation of Care: Patient has not returned to therapy . Spoke to patient 03/09/23 by phone in regards to questions of pain . See phone encounter 03/09/24 for details Regina Peña, PT [facility] 03-09-2023 Miscellaneous Notes Spoke to patient by phone, she notes that she was having difficulty reaching me through the call center. States that she is having increased pain and wonders who she should see or talk to about this. Wants to decrease pain but admits that she does not tolerate a lot of different medications. She notes that she does not feel she would be able to do PT until her pain decreases some. She is seeing neurology this week. Advised pt that she may speak to neurology but also could call her PCP or Donnie Ruffin from the spine whom she saw several weeks ago to address ongoing pain. Informed pt that I am retiring and will not be available after this week. If she chooses to return to therapy, she could have any of her physicians to write order and reschedule with a new PT. Regina Peña PT Pt calling to speak to Regina Peña. She said she has several questions. documented in this encounter [facility] 02-10-2023 Note HNO ID: [id number] Author: Donnie Ruffin PA-C Service: ? Author Type: Physician Wolf Hunter Type: Progress Notes Filed: 02/10/2023 10:46 AM Note Text: [facility] [address] [place] [address] 02/10/2023 ASSESSMENT AND PLAN: Assessment : Encounter Diagnosis ICD-10-CM 1. Facet arthritis of lumbar region M47.816 2. Bilateral primary osteoarthritis of hip M16.0 Discussion: Ms. Davis is a pleasant 77-year-old female here for evaluation of chronic back pain and bilateral lower extremity radiating symptoms with numbness and tingling in the feet and lower legs constantly. States she doesn't want to have injections or oral steroids due to her concern about osteoporosis. She had prior lumbar decompression surgery in 2006 as noted below. About 2 years ago, she had a spinal cord stimulator implanted and it seems to be helping somewhat. She describes weakness and unsteadiness and balance difficulties She describes central low back pain at lumbosacral junction as being her primary symptom. EXAM Highlights: She is slow to mobilize from sitting to standing and has antalgic gait leaning forward trusting a cane and she reaches out for a person's hand to help steady her as she moves around in the exam room. She has global strength diminishment in the lower extremities likely due to deconditioning and pain-avoidance Reflexes are normal Sensory is diminished or altered in stocking distribution up to about the knees She has left knee pain and difficulty straightening her left knee fully. There is pain on palpation at lumbosacral junction and left greater than right PSIS and sciatic notch. Lumbar motion was not fully tested today due to her balance difficulties but she exhibited normal low back motion without significant pain reproduction IMAGING: She had December 30, [address] that showed her low back. She has spinal cord stimulator in place and spinal decompression appears to be laminectomy at L3 and L4. There is a small anterior listhesis at L4-5 and similar retrolisthesis at L2-3 SUMMARY/PLAN: She has chronic neuropathic type pain that is being addressed with spinal cord stimulator and oral medications. She has tried gabapentin in the past with mild help but she is now on amitriptyline as well. I would have her follow-up with her neurologist to consider whether or not further meds would be an option. She has been engaged in supervised PT for quite some time now but I would have her try to ramp up her exercise and daily activity to minimize the deconditioning weakness that she has developed as well. At this point, there is not much to recommend from a low back standpoint. She is currently in supervised PT and already has spinal cord stimulator and is postop following lumbar decompression. Her tiny listheses noted above do not appear to be a particularly concerning clinical issue for her. Based on the above, I would not recommend further surgical spine evaluation. She does have hip arthritis and is seeing orthopedics for that separately. Plan : ACTIVITY RECOMMENDATIONS: -The patient is encouraged to avoid bed rest and maintain normal activity. -The patient is encouraged to exercise regularly as tolerated. FOLLOW-UP: -The patient is instructed to return as needed. This document has been created with the use of voice recognition technology. It may contain inaccuracies: (e.g. misspellings, inaccurate syntax or word sense) that have escaped review. Time spent: 50 minutes today with this patient visit. This includes [id number] time, review of chart records regarding conservative care history, spine-pertinent imaging, and communication/care coordination with referring provider, problem-specific history-taking and counseling/education regarding treatment options. cc: Helen Russell [address] [facility] [id number] Results of consultation to be transmitted via electronic medical record for those providers who practice within [facility] or with access to [employer] via [facility] [employer], or via letter. ################################ ################################ ######## CHIEF COMPLAINT: Patient is here for the lower back pain, and left leg pain. Has this pain for years. Level of the pain is at 7/10. HPI: see Discussion above History of bowel or bladder dysfunction (not IBS or constipation): No History of previous spinal surgery: Yes, performed in [address] Burciaga at . The procedure was a Laminectomy of Lower back History of spinal fracture: No Work Status: retired NON-OPERATIVE CARE: Medication(s): She has tried the following for relief of her symptoms: OTC Tylenol Physical Therapy: She has had physical the (more content not included)... [facility] 02-10-2023 History of Present illness Narrative Images from the original note were not included. Donnie Ruffin PA-C [facility] [address] [facility] [address] [place] [address] 02/10/2023 ASSESSMENT AND PLAN: Assessment : Encounter Diagnosis ICD-10-CM 1. Facet arthritis of lumbar region M47.816 2. Bilateral primary osteoarthritis of hip M16.0 Discussion: Ms. Davis is a pleasant 77-year-old female here for evaluation of chronic back pain and bilateral lower extremity radiating symptoms with numbness and tingling in the feet and lower legs constantly. States she doesn't want to have injections or oral steroids due to her concern about osteoporosis. She had prior lumbar decompression surgery in 2006 as noted below. About 2 years ago, she had a spinal cord stimulator implanted and it seems to be helping somewhat. She describes weakness and unsteadiness and balance difficulties She describes central low back pain at lumbosacral junction as being her primary symptom. EXAM Highlights: She is slow to mobilize from sitting to standing and has antalgic gait leaning forward trusting a cane and she reaches out for a person's hand to help steady her as she moves around in the exam room. She has global strength diminishment in the lower extremities likely due to deconditioning and pain-avoidance Reflexes are normal Sensory is diminished or altered in stocking distribution up to about the knees She has left knee pain and difficulty straightening her left knee fully. There is pain on palpation at lumbosacral junction and left greater than right PSIS and sciatic notch. Lumbar motion was not fully tested today due to her balance difficulties but she exhibited normal low back motion without significant pain reproduction IMAGING: She had December 30, [address] that showed her low back. She has spinal cord stimulator in place and spinal decompression appears to be laminectomy at L3 and L4. There is a small anterior listhesis at L4-5 and similar retrolisthesis at L2-3 SUMMARY/PLAN: She has chronic neuropathic type pain that is being addressed with spinal cord stimulator and oral medications. She has tried gabapentin in the past with mild help but she is now on amitriptyline as well. I would have her follow-up with her neurologist to consider whether or not further meds would be an option. She has been engaged in supervised PT for quite some time now but I would have her try to ramp up her exercise and daily activity to minimize the deconditioning weakness that she has developed as well. At this point, there is not much to recommend from a low back standpoint. She is currently in supervised PT and already has spinal cord stimulator and is postop following lumbar decompression. Her tiny listheses noted above do not appear to be a particularly concerning clinical issue for her. Based on the above, I would not recommend further surgical spine evaluation. She does have hip arthritis and is seeing orthopedics for that separately. Plan : ACTIVITY RECOMMENDATIONS: -The patient is encouraged to avoid bed rest and maintain normal activity. -The patient is encouraged to exercise regularly as tolerated. FOLLOW-UP: -The patient is instructed to return as needed. This document has been created with the use of voice recognition technology. It may contain inaccuracies: (e.g. misspellings, inaccurate syntax or word sense) that have escaped review. Time spent: 50 minutes today with this patient visit. This includes [id number] time, review of chart records regarding conservative care history, spine-pertinent imaging, and communication/care coordination with referring provider, problem-specific history-taking and counseling/education regarding treatment options. cc: Helen Russell [address] [facility] [address] Results of consultation to be transmitted via electronic medical record for those providers who practice within [facility] or with access to [employer] via [facility], or via letter. ################################ ################################ ######## CHIEF COMPLAINT: Patient is here for the lower back pain, and left leg pain. Has this pain for years. Level of the pain is at 7/10. HPI: see Discussion above History of bowel or bladder dysfunction (not IBS or constipation): No History of previous spinal surgery: Yes, performed in [address] Burciaga at . The procedure was a Laminectomy of Lower back History of spinal fracture: No Work Status: retired NON-OPERATIVE CARE: Medication(s): She has tried the following for relief of her symptoms: OTC Tylenol Physical Therapy: She has had physical therapy for her current symptoms. The patient is currently attending PT sessions. The therapy did not provide any significant relief. Had a fall at the Physical Therapy last week. Spinal Injections: She has gotten prior spinal injections. Lumbar epidural steroid injection Other: None Current Outpatient Medications Medication Sig Dispense Refill metFORMIN (GLUCOPHAGE) 500 mg tablet Take 500 mg by mouth daily with breakfast. FLUoxetine (PROZAC) 40 mg capsule Take 40 mg by mouth once daily. amitriptyline (ELAVIL) 10 mg tablet Take 20 mg by mouth daily at bedtime. acetaminophen (TYLENOL) 500 mg tablet Take 500 mg by mouth every 8 hours as needed. glimepiride (AMARYL) 4 mg tablet Take 4 mg by mouth twice daily with meals. hydrochlorothiazide (HYDRODIURIL, ESIDRIX) 12.5 mg tablet METOPROLOL TARTRATE ORAL Take 50 mg by mouth twice daily. Aspirin 81 mg ORAL Tab Take by mouth daily with dinner. 0 sucralfate (CARAFATE) 1 gram tablet Take 1 tablet by mouth twice daily. Can dissolve in one tablespoon of liquid if unable to swallow (Patient not taking: Reported on 01/14/2023) [address] (PROTONIX) 40 mg tablet Take 1 tablet by mouth once daily. 30 minutes before meal. (Patient not taking: Reported on 01/14/2023) 30 tablet 2 clonazePAM (KLONOPIN) 0.5 mg tablet Take 0.25 mg by mouth twice daily as needed. (Patient not taking: Reported on 01/14/2023) No current facility-administered medications for this visit. 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/2016 Diabetes (HCC) Diarrhea Dysphagia Gas Gas pain GERD (gastroesophageal reflux disease) 07/10/2010 Hypertension 07/10/2010 Nausea Nausea PMH - PAST MEDICAL HISTORY OF atrial fib PMH - PAST MEDICAL HISTORY OF lower back problems PMH - PAST MEDICAL HISTORY OF high cholesteral Pulmonary hypertension (HCC) 07/10/2010 Sleep apnea 07/10/2010 Unspecified essential hypertension PAST SURGICAL HISTORY Procedure Laterality Date 48 HOUR PH STUDY 08/16/2013 CHOLECYSTECTOMY COLONOSCOPY SCREENING 03/20/2015 EGD 05/11/2016 EGD W/O BRSH SPEC VARICIES INJ 06/29/2022 Mild nonspecific stomach inflammation EUS/FINE NEEDLE ASP. 07/26/2013 LAPAROSCOPIC DISTAL PANCREATECTOMY 09/25/2013 w/hiatal hernia repair, Torsten fundoplication, EGD, mobilization of the splenic flexure LIG/TRNSXJ FLP TUBE ABDL/VAG APPR UNI/BI PAST SURGICAL HISTORY OF left breast lump removed , benign PAST SURGICAL HISTORY OF hiatal hernia PAST SURGICAL HISTORY OF bilateral bunionectomy PAST SURGICAL HISTORY OF laprascopies TONSILLECTOMY & ADENOIDECTOMY <AGE 13 TOTAL ABDOMINAL HYSTERECT W/WO RMVL TUBE OVARY Social History Tobacco Use Smoking status: Former Packs/day: 0.15 Years: 2.00 Pack years: 0.30 Types: Cigarettes Start date: 11/15/1963 Quit date: 11/15/1965 Years since quittin.2 Smokeless tobacco: Never Tobacco comments: quit 40 yrs. ago Vaping Use Vaping Use: Never used Substance Use Topics Alcohol use: No Drug use: No FAMILY HISTORY Problem Relation Age of Onset Diabetes Mother Heart Mother Thyroid Mother Hypertension Father COPD Father Emphysema Father Hypertension Maternal Grandmother Heart Maternal Grandmother Hypertension Maternal Grandfather Heart Maternal Grandfather Hypertension Paternal Grandmother Heart Paternal Grandmother Stroke Paternal Grandmother Hypertension Paternal Grandfather Heart Paternal Grandfather COPD Sister COPD Brother Colon Cancer Paternal Aunt Colon Cancer Paternal Uncle REVIEW OF SYSTEMS: Constitutional: (-) Fever/Chills (-) Night Sweats (-) Weight Gain (-) Weight Loss (+) Fatigue Gastrointestinal: (+) Abdominal Pain (+) Diarrhea (-) Constipation (+) Nausea/Vomiting (-) Heart Burn Cardiovascular: (-) Chest Pain (-) Palpitations (+) Lightheadedness (-) Swelling of Ankles (-) Hx Heart Surgery/Stent Respiratory: (+) Short of Breath (+) Cough (+) Snoring CPAP Neurologic: (+) Headache (-) Blurry Vision (-) Fainting Skin: (-) Rashes (-) Itching (-) Other Lesions Psychiatric: (+) Depression (+) Anxiety (-) Suicidal Thoughts Genitourinary: (-) Frequency (-) Urgency Endocrine: (-) Thyroid Disorder (+) Diabetes Hematologic: (+) Pr (+) Easy Bruising ################################ ################################ ################################ ################################ # PHYSICAL EXAM: Blood pressure (!) 130/45, pulse 65, height 157.5 cm (5' 2 ), weight 64.9 kg (143 lb 1.6 oz), SpO2 100 %. Body mass index is 26.17 kg/m . General: Patient is a(n) average and but overinclusive historian. The patient appears approximately the recorded age and is sitting comfortably in the examining room. The patient is average height in stature and is average weight in appearance. This individual has difficulty arising from a sitting position and does have difficulty acquiring a full, upright position when standing. Station and Gait: flexed posture and antalgic gait leaning forward, favoring the left lower extremity, moderate Ataxia (unsteady, walks with wide base gait: tendency to fall toward one side), and short strides The patient is unable to walk in a tandem gait. MENTAL STATUS EXAMINATION: The patient was well groomed and casually attired. The patient had good eye contact and rapport was average to establish. The patient appeared to be alert and oriented in all spheres. The patient's overall medical judgment appeared to be fair.The patient's motivation for treatment was judged based on today's encounter to be good. SPINE: Lumbar Lordosis: Normal Thoracic Kyphosis: Normal RANGE OF MOTION: Flexion: normal, as expected for age and weight Pain: No Extension: normal, as expected for age and weight Pain: No Lateral Bending: Right normal, as expected for age and weight Pain: No Left normal, as expected for age and weight Pain: No PALPATION TENDERNESS: Mild tenderness at: lumbar region and posterior pelvis Hyperesthesia present: No Regional symptoms present: No Increased pain with axial loading: No Distraction: Normal Pain responses: appropriate NEUROLOGIC EXAM: MOTOR: Requires verbal cues to minimize cog-wheel or give-way resistance: No Hip Flexor R: 4/5 L: 4/5 Hip Abductor R: 4/5 L: 4/5 Hip Adductor R: 4/5 L: 4/5 Knee Extension R: 4/5 L: 4/5 Foot Dorsiflexion R: 4/5 L: -4/5 Foot Plantar Flexion R: 4/5 L: 4/5 Ext Hallicus Longus R: 4/5 L: -4/5 Toe Extensors R: 4/5 L: -4/5 SENSATION to Light Touch: Lumbar: Stocking distribution (non-dermatomal) numbness affecting the bilateral toes, foot, and lower leg. REFLEXES: Lower Extremity: All Lower Extremity reflexes symmetrically normal. Clonus: R: 0 beats/Normal L: 0 beats/Normal Babinski Sign: Negative bilaterally. Upper Extremity: Modi's Sign: Negative bilaterally. VASCULAR: Skin appearance: Right: Warm/pink Left: Warm/pink Capillary refill: Right: brisk Left: brisk ADDITIONAL MUSCULOSKELETAL EXAM: HIP/PELVIS EXAM: Tenderness over the PSIS: Right: Yes Left: Yes Greater Trochanteric pain: Right: No Left: No Motion restriction: Right: Yes Left: Yes Pain: Right: Yes Left: Yes SPECIAL TESTS: Straight Leg Raise: negative bilaterally Contralateral Straight Leg Raise: negative bilaterally IMAGING STUDIES: See discussion above documented in this encounter [facility] 02-08-2023 Miscellaneous Notes Patient called about upcoming appointment 02/10/2023 and prior authorization being approved. Referral is still pending review. E-mail sent to [facility] regarding patient and review status. Olivia Galvan documented in this encounter [facility] 02-03-2023 Note HNO ID: [id number] Author: Regina Peña PT Service: ? Author Type: Physical Therapist Type: Progress Notes Filed: 02/03/2023 11:02 AM Note Text: Episode Visit Count: 2 Therapist That Will Accept/Oversee The Plan Of Care: Regina Peña PT Start of Care Date: 01/21/23 Onset Date: 12/11/22 Plan of Care Certification Date: 01/21/23 Next Certification Due Date: 03/04/23 REHABILITATION AND SPORTS THERAPY PHYSICAL THERAPY TREATMENT NOTE ASSESSMENT: Clarissa Davis tolerated the session with increased symptoms and expected muscle soreness. She demonstrated difficulty with fall prior to session . The patient will continue to benefit from ongoing skilled physical therapy to progress toward set goals. PLAN FOR NEXT VISIT: Advance strengthening exs as able. Consider gait with walker if stability issues continue SUBJECTIVE: Patient Reason for Visit: Pt notes that she fell in bathroom in our front lobby. Was leaning down to get toilet paper and then she had landed on left side to floor. . Feels in left wrist, She reports that she bumped her head but otherwise does not feel she needs to see doctor. Declined offers for medical attention at this time . Pt was advised to contact PCP and seek medical attention via PCP, urgent care or ER if needed for pain/ problems and she agreed. Pt noted prior to this fall , she felt that her back was hurting some more. Not sure why but was trying to do the exs. Pain: Pain Pain Level: 7 Pain Location: Low Back/Lumbar Spine - Left, Low Back/Lumbar Spine - Right Description: Aching Frequency: Continuous Additional Pain Information : Location 2 Pain Location 2: (pt notes left knee, hip sore and left wrist from fall) Post Treatment Pain Post Treatment Pain Level: No Change OBJECTIVE MEASURES WITH LEVEL OF FUNCTION: Gait Gait Device: Cane TREATMENT: Therapeutic Exercise: 1: seated upright with TA engagement light contraction to avoid pain 1x10 2: seated TA with alternating arm lifts 3: active scapular retraction in sitting 1x10 Skilled Intervention: Patient was educated in proper exercise technique and purpose for exercises. Reviewed and educated patient on additions/changes for home exercise program . Skilled judgment was provided in selection of appropriate interventions. Provided written instruction for home exercise program to facilitate proper performance and compliance. Correct performance of therapeutic exercises was facilitated with verbal and visual cuing. Patient education as noted. Self-Alf Management: 1: discussed use of walker as needed for safety with ambulation . discussed seeking medical attention as needed for today's fall as pt declined medical attention at this time Skilled Intervention: Skilled judgment in the selection of proper modification for activity of daily living/home management based on clinical presentation, deficits, and needs. Home Exercise Program Assigned: 1: add scapular retraction. Handout given of all exs. Billing Therapeutic Exercise Treatment Minutes: 15 Self-Care/Home Management Treatment Minutes: 15 Total Treatment Time Minutes (timed/untimed): 30 Regina Peña, PT [facility] 02-03-2023 History of Present illness Narrative Episode Visit Count: 2 Therapist That Will Accept/Oversee The Plan Of Care: Regina Peña PT Start of Care Date: 01/21/23 Onset Date: 12/11/22 Plan of Care Certification Date: 01/21/23 Next Certification Due Date: 03/04/23 REHABILITATION AND SPORTS THERAPY PHYSICAL THERAPY TREATMENT NOTE ASSESSMENT: Clarissa Davis tolerated the session with increased symptoms and expected muscle soreness. She demonstrated difficulty with fall prior to session . The patient will continue to benefit from ongoing skilled physical therapy to progress toward set goals. PLAN FOR NEXT VISIT: Advance strengthening exs as able. Consider gait with walker if stability issues continue SUBJECTIVE: Patient Reason for Visit: Pt notes that she fell in bathroom in our front lobby. Was leaning down to get toilet paper and then she had landed on left side to floor. . Feels in left wrist, She reports that she bumped her head but otherwise does not feel she needs to see doctor. Declined offers for medical attention at this time . Pt was advised to contact PCP and seek medical attention via PCP, urgent care or ER if needed for pain/ problems and she agreed. Pt noted prior to this fall , she felt that her back was hurting some more. Not sure why but was trying to do the exs. Pain: Pain Pain Level: 7 Pain Location: Low Back/Lumbar Spine - Left, Low Back/Lumbar Spine - Right Description: Aching Frequency: Continuous Additional Pain Information : Location 2 Pain Location 2: (pt notes left knee, hip sore and left wrist from fall) Post Treatment Pain Post Treatment Pain Level: No Change OBJECTIVE MEASURES WITH LEVEL OF FUNCTION: Gait Gait Device: Cane TREATMENT: Therapeutic Exercise: 1: seated upright with TA engagement light contraction to avoid pain 1x10 2: seated TA with alternating arm lifts 3: active scapular retraction in sitting 1x10 Skilled Intervention: Patient was educated in proper exercise technique and purpose for exercises. Reviewed and educated patient on additions/changes for home exercise program . Skilled judgment was provided in selection of appropriate interventions. Provided written instruction for home exercise program to facilitate proper performance and compliance. Correct performance of therapeutic exercises was facilitated with verbal and visual cuing. Patient education as noted. Self-Alf Management: 1: discussed use of walker as needed for safety with ambulation . discussed seeking medical attention as needed for today's fall as pt declined medical attention at this time Skilled Intervention: Skilled judgment in the selection of proper modification for activity of daily living/home management based on clinical presentation, deficits, and needs. Home Exercise Program Assigned: 1: add scapular retraction. Handout given of all exs. Billing Therapeutic Exercise Treatment Minutes: 15 Self-Care/Home Management Treatment Minutes: 15 Total Treatment Time Minutes (timed/untimed): 30 Regina Peña PT documented in this encounter [facility] 01-21-2023 Note HNO ID: [id number] Author: Regina Peña PT Service: ? Author Type: Physical Therapist Type: Progress Notes Filed: 01/21/2023 2:45 PM Note Text: Episode Visit Count: 1 Therapist That Will Accept/Oversee The Plan Of Care: Regina Peña PT Start of Care Date: 01/21/23 Onset Date: 12/11/22 Plan of Care Certification Date: 01/21/23 Next Certification Due Date: 03/04/23 Patient Identified by Name and Date of : Yes REHABILITATION AND SPORTS THERAPY PHYSICAL THERAPY EVALUATION PLAN OF CARE: Assessment: Clarissa Davis presents with chief complaint of low back pain B in presence of facet arthritis , spondylolisthesis and osteoporosis that interferes with standing, walking in the community, physical activities . She presents with impairments in ADL's, independence in exercise, overall function, strength, and symptom management. PROMIS? (Patient-Reported Outcomes Measurement Information System) scores were reviewed and physical function domain and self efficacy domain identified as a rehabilitation concern. Prognosis for therapy is Fair due to: multiple co- morbidities, chronic nature of impairments . She will benefit from skilled therapy services to meet the goals established for this plan of care as noted below. Classification Low Back Pain Subgroup Classification: Core stabilization subgroup: recommended visits 10. Core Stabilization Subgroup Classification based on: pain with transitional movements Goals for Episode of Care: created on 01/21/23 through 03/04/23 Independent in home exercises. Patient will decrease pain to 3/10 with functional activities to allow patient to improve standing tolerance for ADLs. 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 increasing Maintain proper sitting posture throughout session Knowledgeable regarding prophylaxis. Patient will increase strength of core and LE to 4/5 to allow for improve ability to complete ADLs. Patient Goals: decrease pain , alleviate bad spells Planned Interventions, Frequency, and Duration: Current Frequency: 1x/week Duration: 4 weeks Total Number of Visits Planned: 4 Planned Treatment Interventions: Therapeutic exercise (50431), Gait Training (16663), Self-prison management (12645) PLAN FOR NEXT VISIT: Will continue to add neutral spine strengthening in sitting LAQ with TA . wand shoulder elevation for upright posture, scapular retraction Patient demonstrates good understanding of plan of care and treatment. The above goals and plan of care were discussed and agreed upon by patient/family. SUBJECTIVE: Clarissa Davis is a 77 year old female seen today for Pt notes that she had increased pain after prolia shot in Nov. . Noticed increased pain after this. difficulty to get up and move. Used st. cane 4 years on left side. Patient Goals: decrease pain , alleviate bad spells Functional Limitations: standing, walking in the community, physical activities Prior Level of Function: Independent without limitations Relevant History Past Relevant Surgical Conditions: (2007 decompression surgery) Home Environment Patient Lives With: Spouse Home Type: Ranch Entry To Home: Stairs, Without Rail Intake Information: Prescription present Previous Treatment: (extra strength tylenol , injections, up until last year, nerve ablation) Red Flags Vertebral Fracture Red Flags: Female, Age >70 (has osteoporosis) Spine History Pain is Worse Always: AM (getting out of bed) Sleeping Position: Side lying left > right Sleep Affected by Pain: Pain awakens Pain: Pain Pain Level: 7 Pain Location: Low Back/Lumbar Spine - Left, Low Back/Lumbar Spine - Right Description: Aching Frequency: Continuous Post Treatment Pain Post Treatment Pain Level: No Change PROMIS Scales Higher is Better 01/20/2023 Phys Func - Score 35 (moderate dysfunction) Phys Func - Percentile 7 % Self-Eff Symptom - Score 38 (Low) Self-Eff Symptom - Percentile 12 % T-scores: mean of general population = 50. 5 points is clinically meaningfully difference Percentiles provide an indication of how the patient's score ranks in relation to the general population. Higher percentile rankings indicate better function/quality of life. 50th percentile is the average of the general population and indicates half of respondents had a worse score. OBJECTIVE MEASURES WITH LEVEL OF FUNCTION: Posture / Alignment Posture: Increased thoracic kyphosis Lumbo - Pelvic Alignment: right IC high Sitting Posture: Fair Effects of Posture Correction: no change of jpain Spine Observations R Lumbar Spine Palpation Tenderness: Paraspinals, PSIS (posterior superior iliac spine) L Lumbar Spine Palpation Tenderness: Paraspinals, PSIS (posterior superior iliac spine) Sensation - Lumbar Sensation: Impaired Impaired Sensation: (throughout LE to feet per pt) Lumbar Spine AROM Lumbar Extension: Minimal limitation LE S (more content not included)... [facility] documented as of this encounter (statuses as of 03/09/2023) [facility]03-09-2023 History of Past illness Narrative* Problem Noted Date Resolved Date Facet arthritis of lumbar region 01/21/2023 03/09/2023 Bilateral primary osteoarthritis of hip 01/22/20 23 03/09/2023 Anterolisthesis of lumbar spine 01/21/2023 03/09/2023 documented as of this encounter (statuses as of 04/14/2023) [facility] History of Past illness Narrative* Problem Noted Date Resolved Date Facet arthritis of lumbar region 01/21/2023 03/09/2023 Bilateral primary osteoarthritis of hip 01/22/20 23 03/09/2023 Anterolisthesis of lumbar spine 01/21/2023 03/09/2023 documented as of this encounter (statuses as of 05/06/2023) [facility] History of Past illness Narrative* Problem Noted Date Resolved Date Facet arthritis of lumbar region 01/21/2023 03/09/2023 Bilateral primary osteoarthritis of hip 01/22/20 23 03/09/2023 Anterolisthesis of lumbar spine 01/21/2023 03/09/2023 documented as of this encounter (statuses as of 05/17/2023) [facility] History of Past illness Narrative* Problem Noted Date Diagnosed Date Resolved Date Facet arthritis of lumbar region 01/21/2023 03/09/2023 Bilateral primary osteoarthritis of hip 01/21/2023 03/09/2023 Anterolisthesis of lumbar spine 01/21/2023 03/09/2023 documented as of this encounter (statuses as of 06/26/2023) [facility]03-02-2023 NoteHNO ID: [id number] Author: Helen Russell, DO Service: ? Author Type: Physician Type: Progress Notes Filed: 01/24/2023 8:17 AM Note Text: Reason for Visit/Chief Complaint Clarissa Davis is a 77 year old female who presents today for a new evaluation of following complaint: Patient presents with: Left Hip - New, Second Opinion Right Hip - New, Second Opinion History of Present Illness: PAIN EVALUATION 01/14/2023 1117 Pain Level: 6 Pain Location: -- bilateral hips Description: Pressure Duration Amount of Time: -- ongoing Frequency: Continuous Intervention/Comfort measure: Other: See comment none HPI: Clarissa Davis is a 77 year old female presenting today with bilateral hip pain . Pain history is noted as above. No bowel or bladder problems or fever, chills or other consitutional symptoms. States right sided back pain and last injection back in February. Had prolea osteoporosis and pain afterwards. Bone density done at [facility], xrays of lumbar and hips done at [facility] as well. States back and hip pain. No changes in bowel or bladder or gait, no saddle anesthesia. Pain diff getting up from seated. No burning urination, or other constitutional symptoms. Denies calf pain, numbness, tingling, fever, chills or other constitutional symptoms. Previous Treatments: Ice: Yes Heat: Yes Brace: No NSAIDs: Yes, Aleve and ibuprofen, but has stomach issues and prefers not to take. Injections: No Surgeries: No Physical Therapy: Ordered , but not started. She wanted 2nd opinion first. Review of Systems: Patient did not have, and does not currently have, any weight loss, malaise, fever, chills, headache, chest pain, chest pressure, palpitations, cough, shortness of breath, orthopnea, paroxsymal nocturnal dyspnea, nausea, vomiting, diarrhea, constipation, melena, hematochezia, urinary difficulties, prolonged bleeding, easily bruising, heat or cold intolerance, new onset joint pain or swelling, new onset extremity weakness or numbness, new onset auditory or visual disturbances, lightheadedness, dizziness, partial loss of consciousness or full loss of consciousness. Current Outpatient Medications on File Prior to Visit Medication Sig metFORMIN (GLUCOPHAGE) 500 mg tablet Take 500 mg by mouth daily with breakfast. FLUoxetine (PROZAC) 40 mg capsule Take 40 mg by mouth once daily. amitriptyline (ELAVIL) 10 mg tablet Take 20 mg by mouth daily at bedtime. acetaminophen (TYLENOL) 500 mg tablet Take 500 mg by mouth every 8 hours as needed. glimepiride (AMARYL) 4 mg tablet Take 4 mg by mouth twice daily with meals. hydrochlorothiazide (HYDRODIURIL, ESIDRIX) 12.5 mg tablet METOPROLOL TARTRATE ORAL Take 50 mg by mouth twice daily. Aspirin 81 mg ORAL Tab Take by mouth daily with dinner. sucralfate (CARAFATE) 1 gram tablet Take 1 tablet by mouth twice daily. Can dissolve in one tablespoon of liquid if unable to swallow (Patient not taking: Reported on 01/14/2023) pantoprazole DR (PROTONIX) 40 mg tablet Take 1 tablet by mouth once daily. 30 minutes before meal. (Patient not taking: Reported on 01/14/2023) clonazePAM (KLONOPIN) 0.5 mg tablet Take 0.25 mg by mouth twice daily as needed. (Patient not taking: Reported on 01/14/2023) No current facility-administered medications on file prior to visit. ALLERGIES Allergen Reactions Demerol [Meperidine* Rash Fentanyl Citrate Itching Morphine GI Upset, Anaphylaxis Urispas [Flavoxate * Rash Hydrocodone-Acetami* Itching Physical Exam: Vitals: There were no vitals taken for this visit. Psych: Pleasant, good affect and mood General Appearance: Well appearing, alert, in no acute distress, well-hydrated, well nourished.. Skin: Skin color, texture, turgor normal, no suspicious rashes or lesions. Peripheral Pulses: Normal. Neurologic: Gait normal. Reflexes normal and symmetric. Sensation grossly intact.. Lymph Nodes: No cervical lymphadenopathy, No supraclavicular lymphadenopathy, No axillary lymphadenopathy., and No inguinal lymphadenopathy.. Respiratory: No recent pulmonary infection, hemoptysis, chronic cough, or shortness of breath at rest Rheumatologic: Joint deformities: b/l hip oa and lumbar pain Back Exam Tenderness The patient is experiencing tenderness in the lumbar. Range of Motion Extension: abnormal Flexion: abnormal Lateral bend right: abnormal Lateral bend left: abnormal Rotation right: abnormal Rotation left: abnormal Muscle Strength The patient has normal back strength. Right Quadriceps: 5/5 Left Quadriceps: 5/5 Right Hamstrings: 5/5 Left Hamstrings: 5/5 Tests Straight leg raise right: negative Straight leg raise left: negative Reflexes Patellar: normal Achilles: normal Babinski's sign: normal Other Toe walk: normal Heel walk: normal Sensation: normal Gait: normal Erythema: no back redness Comments: Dec ROM in all Imaging: xrays show facet oa and (more content not included)...[facility]03-02-2023 History of Present illness Narrative* Helen Russell, DO - 01/14/2023 11:16 AM EST Images from the original note were not included. Reason for Visit/Chief Complaint Clarissa Davis is a 77 year old female who presents today for a new evaluation of following complaint: Patient presents with: Left Hip - New, Second Opinion Right Hip - New, Second Opinion History of Present Illness: PAIN EVALUATION 01/14/2023 1117 Pain Level: 6 Pain Location: -- bilateral hips Description: Pressure Duration Amount of Time: -- ongoing Frequency: Continuous Intervention/Comfort measure: Other: See comment none HPI: Clarissa Davis is a 77 year old female presenting today with bilateral hip pain . Pain history is noted as above. No bowel or bladder problems or fever, chills or other consitutional symptoms.States right sided back pain and last injection back in February. Had prolea osteoporosis and pain afterwards. Bone density done at [facility], xrays of lumbar and hips done at [facility] as well. States back and hip pain. No changes in bowel or bladder or gait, no saddle anesthesia. Pain diff getting up from seated. No burning urination, or other constitutional symptoms. Denies calf pain, numbness, tingling, fever, chills or other constitutional symptoms. Previous Treatments: Ice: Yes Heat: Yes Brace: No NSAIDs: Yes, Aleve and ibuprofen, but has stomach issues and prefers not to take. Injections: No Surgeries: No Physical Therapy: Ordered , but not started. She wanted 2nd opinion first. Review of Systems: Patient did not have, and does not currently have, any weight loss, malaise, fever, chills, headache, chest pain, chest pressure, palpitations, cough, shortness of breath, orthopnea, paroxsymal nocturnal dyspnea, nausea, vomiting, diarrhea, constipation, melena, hematochezia, urinary difficulties, prolonged bleeding, easily bruising, heat or cold intolerance, new onset joint pain or swelling, newonset extremity weakness or numbness, new onset auditory or visual disturbances, lightheadedness, dizziness, partial loss of consciousness or full loss of consciousness. Current Outpatient Medications on File Prior to Visit Medication Sig metFORMIN (GLUCOPHAGE) 500 mg tablet Take 500 mg by mouth daily with breakfast. FLUoxetine (PROZAC) 40 mg capsule Take 40 mg by mouth once daily. amitriptyline (ELAVIL) 10 mg tablet Take 20 mg by mouth daily at bedtime. acetaminophen (TYLENOL) 500 mg tablet Take 500 mg by mouth every 8 hours as needed. glimepiride (AMARYL) 4 mg tablet Take 4 mg by mouth twice daily with meals. hydrochlorothiazide (HYDRODIURIL, ESIDRIX) 12.5 mg tablet METOPROLOL TARTRATE ORAL Take 50 mg by mouth twice daily. Aspirin 81 mg ORAL Tab Take by mouth daily with dinner. sucralfate (CARAFATE) 1 gram tablet Take 1 tablet by mouth twice daily. Can dissolve in one tablespoon of liquid if unable to swallow (Patient not taking: Reported on 01/14/2023) pantoprazole DR (PROTONIX) 40 mg tablet Take 1 tablet by mouth once daily. 30 minutes before meal. (Patient not taking: Reported on 01/14/2023) clonazePAM (KLONOPIN) 0.5 mg tablet Take 0.25 mg by mouth twice daily as needed. (Patient not taking: Reported on 01/14/2023) No current facility-administered medications on file prior to visit. ALLERGIES Allergen Reactions Demerol [Meperidine* Rash Fentanyl Citrate Itching Morphine GI Upset, Anaphylaxis Urispas [Flavoxate * Rash Hydrocodone-Acetami* Itching Physical Exam: Vitals: There were no vitals taken for this visit. Psych: Pleasant, good affect and mood General Appearance: Well appearing, alert, in no acute distress, well-hydrated, well nourished.. Skin: Skin color, texture, turgor normal, no suspicious rashes or lesions. Peripheral Pulses: Normal. Neurologic: Gait normal. Reflexes normal and symmetric. Sensation grossly intact.. Lymph Nodes: No cervical lymphadenopathy, No supraclavicular lymphadenopathy, No axillary lymphadenopathy., and No inguinal lymphadenopathy.. Respiratory: No recent pulmonary infection, hemoptysis, chronic cough, or shortness of breath at rest Rheumatologic: Joint deformities: b/l hip oa and lumbar pain Back Exam Tenderness The patient is experiencing tenderness in the lumbar. Range of Motion Extension: abnormal Flexion: abnormal Lateral bend right: abnormal Lateral bend left: abnormal Rotation right: abnormal Rotation left: abnormal Muscle Strength The patient has normal back strength. Right Quadriceps: 5/5 Left Quadriceps: 5/5 Right Hamstrings: 5/5 Left Hamstrings: 5/5 Tests Straight leg raise right: negative Straight leg raise left: negative Reflexes Patellar: normal Achilles: normal Babinski's sign: normal Other Toe walk: normal Heel walk: normal Sensation: normal Gait: normal Erythema: no back redness Comments: Dec ROM in all Imaging: xrays show facet oa and grade 1 anterolisthesis of L4-L5, left greater than right hip osteoarthritis Assessment and Plan: Impression: Encounter Diagnosis ICD-10-CM 1. Facet arthritis of lumbar region M47.816 CONSULT TO [facility] 2. Bilateral primary osteoarthritis of hip M16.0 CONSULT TO [facility] 3. Anterolisthesis of lumbar spine M43.16 Plan: Today, in detail, through a thorough evaluation, we discussed possible etiologies of pain and our plans for further diagnostic and therapeutic interventions. We discussed strategies for decreasing pain and improving strength, stability and motion. Patient's questions were answered in detailed. Patient verbalizes understanding and agrees with the treatment plan as discussed. Deferred PT, but pt has order and told patient it may be of some help for her so encouraged her to attend Brace for comfort- has from surgery from spine stimulator implant Spine consultation d/t facet sclerosis/listhesis Most of her pain today is right side low back mechanical with movement and getting up/down out of chairs, etc Needs spine eval, no pain in hips today F/u with spine Patient aware and in agreement of plan. All questions answered. documented in [facility]22 NoteHNO ID: [id number] Author: RT Caroline(R) Service: Nuclear Medicine Author Type: Technologist Type: Progress Notes Filed: 10/09/2022 8:55 AM Note Text: RADIOLOGY SERVICE PROGRESS NOTE SERVICE DATE: 10/09/2022 SERVICE TIME: 8:38 AM PATIENT IDENTITY VERIFICATION COMPLETED USING TWO (2) STANDARD IDENTIFIERS: Name and Date of confirmed by patient verbally and Name and Date of confirmed by identification band FALL SCREENING: Has the patient had 2 falls in the last year or 1 fall with injury or currently using an Ambulatory Assistive Device (Walker, Cane, Wheelchair, Crutches, etc.)? No PATIENT GENDER DATA: .female : No ALLERGIES: Reviewed and unchanged MEDICATIONS REVIEWED: No PATIENT RELEVANT IMPLANT DATA REVIEWED: Not Applicable CREATININE: Creatinine Date Value Ref Range Status 06/09/2021 <0.06 (L) 0.58 - 0.96 mg/dL Final 06/10/2020 0.97 (H) 0.58 - 0.96 mg/dL Final 07/05/2018 1.19 (H) 0.51 - 0.95 mg/dL Final eGFR-All Other Races Date Value Ref Range Status 06/10/2020 56 . Final Comment: eGFR (Estimated GFR) Units of measure: mL/min/1.73 meters squared eGFR is derived from the reexpressed MDRD Study equation using the following parameters: serum creatinine, age, gender and race. The creatinine assay has been calibrated to be traceable to IDMS. An eGFR <60 mL/min/1.73m2 for >3 months is consistent with chronic kidney disease. Refer to KDOQI guidelines for clinical interpretation. In patients with unstable renal function, e.g. those with acute kidney injury, the eGFR may not accurately reflect actual GFR. eGFR- Date Value Ref Range Status 06/10/2020 >60 Final P.O.C.T. RESULTS: N/A October 09, [address] PERFORMED: No IV SITE: Ambulatory: Not applicable POST EXAM PIV STATUS: Not applicable PROCEDURE TYPE: NM GET: 1.0 mCi Tc99m SULFUR COLLOID was administered orally via 3oz egg beaters with 1 toast and 8oz h2o ADMINISTRATION TIME: 0755 PATIENT DISCHARGED TO: Ambulatory patient, left [place] department area. A Diagnostic radioactive procedure has taken place, with no further precautions necessary other than routine body substance precautions. More information regarding radiation safety can be found using this link: [email or web address] SIGNATURE: RT Caroline(R) PATIENT NAME: Clarissa Davis DATE: October 09, 2022 TIME: 8:38 AM PAGER/CONTACT #:[facility]11-25-2022 History of Present illness Narrative* Monica Kaminski, RT(R) - 10/09/2022 8:00 AM EST RADIOLOGY SERVICE PROGRESS NOTE SERVICE DATE: 10/09/2022 SERVICE TIME: 8:38 AM PATIENT IDENTITY VERIFICATION COMPLETED USING TWO (2) STANDARD IDENTIFIERS: Name and Date of confirmed by patient verbally and Name and Date of confirmed by identification band FALL SCREENING: Has the patient had 2 falls in the last year or 1 fall with injury or currently using an Ambulatory Assistive Device (Walker, Cane, Wheelchair, Crutches, etc.)? No PATIENT GENDER DATA: .female : No ALLERGIES: Reviewed and unchanged MEDICATIONS REVIEWED: No PATIENT RELEVANT IMPLANT DATA REVIEWED: Not Applicable CREATININE: Creatinine Date Value Ref Range Status 06/09/2021 <0.06 (L) 0.58 - 0.96 mg/dL Final 06/10/2020 0.97 (H) 0.58 - 0.96 mg/dL Final 07/05/2018 1.19 (H) 0.51 - 0.95 mg/dL Final eGFR-All Other Races Date Value Ref Range Status 06/10/2020 56 . Final Comment: eGFR (Estimated GFR) Units of measure: mL/min/1.73 meters squared eGFR is derived from the reexpressed MDRD Study equation using the following parameters: serum creatinine, age, gender and race. The creatinine assay has been calibrated to be traceable to IDMS. An eGFR <60 mL/min/1.73m2 for >3 months is consistent with chronic kidney disease. Refer to KDOQI guidelines for clinical interpretation. In patients with unstable renal function, e.g. those with acute kidney injury, the eGFR may not accurately reflect actual GFR. eGFR- Date Value Ref Range Status 06/10/2020 >60 Final P.O.C.T. RESULTS: N/A October 09, [address] PERFORMED: No IV SITE: Ambulatory: Not applicable POST EXAM PIV STATUS: Not applicable PROCEDURE TYPE: NM GET: 1.0 mCi Tc99m SULFUR COLLOID was administered orally via 3oz egg beaters with 1 toast and 8oz h2o ADMINISTRATION TIME: 0755 PATIENT DISCHARGED TO: Ambulatory patient, left [place] department area. A Diagnostic radioactive procedure has taken place, with no further precautions necessary other than routine body substance precautions. More information regarding radiation safety can be found usingthis link: [email or web address]%[email or web address] SIGNATURE: RT Caroline(R) PATIENT NAME: Clarissa Davis DATE: October 09, 2022 TIME: 8:38 AM PAGER/CONTACT #: documented in this encounterMer[facility]11-01-2022 NoteHNO ID: [id number] Author: Lin Hood PA-C Service: ? Author Type: Physician Wolf Hunter Type: Progress Notes Filed: 09/15/2022 11:25 AM Note Text: CHIEF COMPLAINT: Patient presents with: Procedure Follow Up: EGD 06/29/22. Stopped taking Pantoprazole HPI Clarissa Davis is a 77 year old female here today for Procedure Follow Up (EGD 06/29/22. Stopped taking Pantoprazole) PSHx of distal pancreatectomy/hiatal hernia repair in 2012, cholecystectomy, total hysterectomy Patient tells me that she is doing okay today. Notes if she drinks something and bends over she will regurgitate. Still having upper abdominal intermittently, unsure of triggers to this. Still having a lot of early satiety and bloating. Appetite is decreased, weight is decreased. Notes worsening diarrhea with Omeprazole. Never started the Pantoprazole. EGD 06/29/2022: Impression: - Z-line regular, 37 cm from the incisors. - A Torsten fundoplication was found. The wrap appears intact. - Bilious gastric fluid. - Erythematous mucosa in the antrum. Biopsied. - Normal duodenal bulb and second portion of the duodenum. Recommendation: - Resume previous diet. - Continue present medications. - Await pathology results. - The patient has taken no previous anticoagulant or antiplatelet agents. - Return to GI clinic as previously scheduled. - Patient has a contact number available for emergencies. The signs and symptoms of potential delayed complications were discussed with the patient. Return to normal activities tomorrow. Written discharge instructions were provided to the patient. FINAL DIAGNOSIS Stomach, antrum, biopsy: -Portions of oxyntic and antral type gastric mucosa with chronic inactive gastritis -Negative for Helicobacter pylori organisms on routine staining -Negative for intestinal metaplasia or dysplasia Last OV with Monica Wynne PA-C 04/16/2022: Assessment/Plan (R10.13) Epigastric pain (primary encounter diagnosis) (Z98.890) History of Torsten fundoplication (R19.5) Loose stools (Z90.411) History of partial pancreatectomy 1. Epigastric pain - omeprazole (PRILOSEC) 40 mg capsule; Take 1 capsule by mouth once daily. 30 minutes before meal. Dispense: 30 capsule; Refill: 2 - dicyclomine (BENTYL) 10 mg capsule; Take 1 capsule by mouth three times daily as needed (for abdominal pain). Dispense: 30 capsule; Refill: 2 - Start Prilosec 40 mg daily - Start Bentyl PRN - Consider EGD after she obtains ECHO next week. She will mychart message me once she receives results from PCP - Try to obtain CT abd records from ER visit 12/2021 - Discussed gastritis precautions Recommend high protein, high fiber diet. Promotion of salivation through oral lozenges/chewing gum Drink plenty of water Avoid NSAIDs (such as Advil, Ibuprofen, Excedrin, Mobic), tobacco, alcohol, carbonated beverages, caffeine, chocolate, tomato based sauces, spicy/fatty foods, and peppermint Avoid eating less than 3 hours before bed. Elevate the head of the bed 6 inches, or invest in a wedge pillow. Laying on left side with head elevated may help alleviate reflux symptoms. 2. History of Torsten fundoplication - omeprazole (PRILOSEC) 40 mg capsule; Take 1 capsule by mouth once daily. 30 minutes before meal. Dispense: 30 capsule; Refill: 2 3. Loose stools - Chronic in nature since pancreatectomy in 2012, colon 2015 was normal including random biopsies - Provided trial of Creon 36 and included instructions in AVS - Consider additional stool, Celiac testing, possible repeat colonoscopy 4. History of partial pancreatectomy - Provided trial of Creon 36 and included instructions in AVS - Dr. Ali following pancreatic cyst with yearly abdominal imaging Current Outpatient Medications Medication Sig metFORMIN (GLUCOPHAGE) 500 mg tablet Take 500 mg by mouth daily with breakfast. FLUoxetine (PROZAC) 40 mg capsule Take 40 mg by mouth once daily. clonazePAM (KLONOPIN) 0.5 mg tablet Take 0.25 mg by mouth twice daily as needed. amitriptyline (ELAVIL) 10 mg tablet Take 20 mg by mouth daily at bedtime. acetaminophen (TYLENOL) 500 mg tablet Take 500 mg by mouth every 8 hours as needed. glimepiride (AMARYL) 4 mg tablet Take 4 mg by mouth twice daily with meals. hydrochlorothiazide (HYDRODIURIL, ESIDRIX) 12.5 mg tablet METOPROLOL TARTRATE ORAL Take 50 mg by mouth twice daily. Aspirin 81 mg ORAL Tab Take by mouth daily with dinner. pantoprazole DR (PROTONIX) 40 mg tablet Take 1 tablet by mouth once daily. 30 minutes before meal. No current facility-administered medications for this visit. ALLERGIES Allergen Reactions Demerol [Meperidine* Rash Fentanyl Citrate Itching Morphine GI Upset, Anaphylaxis Urispas [Flavoxate * Rash Hydrocodone-Acetami* Itching Social History Tobacco Use Smoking status: Former Packs/day: 0.15 Years: 2.00 Pack years: 0.30 Types: Cigarettes Start date: 11/15/1963 Quit date (more content not included)...[facility]10-05-2022 Miscellaneous Notes* Telephone Encounter - Monica Wynne PA-C - 08/19/2022 2:33 PM EDT Pts EGD from 06/2022 showed nonspecific gastritis otherwise unremarkable. If S/E with Prilosec may stay off of this. Will prescribe protonix as alternative. Please call to schedule follow up GI office visit thank you Monica Wynne PA-C * Telephone Encounter - Atiya Martinez Pss - 08/19/2022 1:55 PM EDT Patient states she stopped taking Prilosec due to causing more diarrhea. Still having discomfort. Please call patient. Thank you. documented in this encounterMer[facility]08-15-2022 NoteHNO ID: [id number] Author: Jessica Yang RN Service: ? Author Type: Registered Nurse Type: Nursing Progress Note Filed: 06/29/2022 9:45 AM Note Text: Dr. Soto at bedside to speak to patient. Verbalizes understanding.[facility] Nurse Note* Jessica Yang RN - 06/29/2022 8:[address] Soto at bedside to speak to patient. Verbalizes understanding. documented in this encounterMer[facility]08-15-2022 History and physical note * Kaalni Soto MD - 06/29/2022 8:30 AM EDT HISTORY AND PHYSICAL Clarissa Dvais, 77 year old female here for EGD to evaluate epigastric pain. Past history of Torsten's fundoplication Current history and physical on file: Yes Is a new History and Physical required for today's visit? No Indication for procedure: Abdominal pain PROCEDURE(S) SCHEDULED FOR: EGD (Esophagogastroduodenoscopy) with or without biopsies, removal of polyps or lesions, dilation (any means), treatment of bleeding ( any means), Barrx treatment of Nic's Esophagus, image tube placement or cryo therapy treatment based on clinical findings. BASELINE BEHAVIOR: Calm BASELINE ORIENTATION: A & O x3 All medications and allergies reviewed: Yes Skin Assessment: Warm dry muscus membranes pink Airway/Respiratory Assessment: Airway: visualization of the uvula- Yes Mouth: opening greater than 2 fingerbreadths- Yes Neck: full range of motion- Yes Breath sounds clear/equal- Yes Cardiac Assessment: Regular rate and rhythm without murmur Abdominal Assessment: Abdomen soft, non-tender, no masses or organomegaly. Sedation Plan: Deep Additional Comments: None Kalani Soto MD documented in this encounterChichester [id number] Miscellaneous Notes* Addendum Note - Monica Wynne PA-C - 06/19/2022 4:00 PM EDT Addended by: MONICA WYNNE on: 06/19/2022 04:00 PM Modules accepted: Orders documented in this [facility]2022 Miscellaneous Notes* Telephone Encounter - Hansa Nath Ma - 05/11/2022 2:32 PM EDT Patient phones requesting refills as follows: Pending Prescriptions Disp Refills OMEPRAZOLE 40 MG CAPSULE,DELAYED RELEASE 30 capsule 2 Sig: TAKE 1 CAPSULE BY MOUTH ONCE DAILY. 30 MINUTES BEFORE MEAL. KRYSTAL: Yes Please review and advise. Hansa Nath Ma documented in this [facility]06-02-2022 Instructions* Patient Instructions* Monica Wynne PA-C - 04/16/2022 10:20 AM EDT CREON TAKE ONE TABLET BY MOUTH THREE TIMES DAILY WITH MEALS, TAKE ONE TABLET BY MOUTH WITH EACH SNACK MYCHART MESSAGE ME ONCE YOU GET RESULTS OF THE ECHO Recommend high protein, high fiber diet. Promotion of salivation through oral lozenges/chewing gum Drink plenty of water Avoid NSAIDs (such as Advil, Ibuprofen, Excedrin, Mobic), tobacco, alcohol, carbonated beverages, caffeine, chocolate, tomato based sauces, spicy/fatty foods, and peppermint Avoid eating less than 3 hours before bed. Elevate the head of the bed 6 inches, or invest in a wedge pillow. Laying on left side with head elevated may help alleviate reflux symptoms. documented in this [facility]06-02-2022 History of Present illness Narrative* Monica Wynne PA-C - 04/16/2022 9:50 AM EDT CHIEF COMPLAINT: Patient presents with: Abdominal Pain: Hiatal hernia, Heartburn. CT/XR 12/30/21 Labs 03/31/22 HPI: Clarissa Davis is a 76 year old female who presents for Abdominal Pain (Hiatal hernia, Heartburn.CT/XR 12/30/21 Labs 03/31/22). Surgical hx positive for distal pancreatectomy/hiatal hernia repair [id number], cholecystectomy, total hysterectomy. Went to [place] ER around 12/2021 due to severe epigastric pain, LOC. Reports she had imaging performed that she does not know what results were, unclear nicole ology for symptoms. Told by PCP to see Gastro. Has enlarged chambers of heart according to recentCT. Has ECHO scheduled for next week. Pain is persistently in epigastric region, radiates to RUQ. Admits to regular heartburn, indigestion. BMs change from diarrhea to formed for years , worsened since pancreas no blood/black coloring. States she was on Creon in the past, does not remember results. Denies NSAID use. Colon 201415 grade II hemorrhoids, otherwise normal colon, normal random biopsies 48 hr Zee study 2012 normal, no reflux EGD 2013 hiatal hernia, normal appearing mucosa, path report unavailable. MRI abd 06/18/2021 IMPRESSION: There is a stable 5 mm cystic lesion in the head of the pancreas. 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 Recommend follow-up MRI in 2 years to assess for continued stability. Changes of distal pancreatectomy. Record Review: [facility] / Outside records reviewed. 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 07/26/2013 LAPAROSCOPIC DISTAL PANCREATECTOMY 09/25/2013 w/hiatal hernia repair, Torsten fundoplication, EGD, mobilization of the splenic flexure LIG/TRNSXJ FLP TUBE ABDL/VAG APPR UNI/BI PAST SURGICAL HISTORY OF left breast lump removed , benign PAST SURGICAL HISTORY OF hiatal hernia PAST SURGICAL HISTORY OF bilateral bunionectomy PAST SURGICAL HISTORY OF laprascopies TONSILLECTOMY & ADENOIDECTOMY <AGE 13 TOTAL ABDOMINAL HYSTERECT W/WO RMVL TUBE OVARY Allergies: ALLERGIES Allergen Reactions Demerol [Meperidine* Rash Fentanyl Citrate Itching Morphine GI Upset, Anaphylaxis Urispas [Flavoxate * Rash Hydrocodone-Acetami* Itching Medications: metFORMIN (GLUCOPHAGE) 500 mg tablet Take 500 mg by mouth daily with breakfast. FLUoxetine (PROZAC) 40 mg capsule Take 40 mg by mouth once daily. clonazePAM (KLONOPIN) 0.5 mg tablet Take 0.5 mg by mouth twice daily as needed. amitriptyline (ELAVIL) 10 mg tablet Take 10 mg by mouth daily at bedtime. acetaminophen (TYLENOL EXTRA STRENGTH) 500 mg tablet Take 500 mg by mouth every 8 hours as needed. glimepiride (AMARYL) 4 mg tablet Take 4 mg by mouth twice daily with meals. hydrochlorothiazide (HYDRODIURIL, ESIDRIX) 12.5 mg tablet METOPROLOL TARTRATE ORAL Take 50 mg by mouth twice daily. ALBUTEROL SULFATE (PROAIR HFA INHALATION) Inhale as instructed as needed. Aspirin 81 mg ORAL Tab Take one(1) tablet daily. FAMILY HISTORY Problem Relation Age of Onset Diabetes Mother Heart Mother Thyroid Mother Hypertension Father COPD Father Emphysema Father Hypertension Maternal Grandmother Heart Maternal Grandmother Hypertension Maternal Grandfather Heart Maternal Grandfather Hypertension Paternal Grandmother Heart Paternal Grandmother Stroke Paternal Grandmother Hypertension Paternal Grandfather Heart Paternal Grandfather COPD Sister COPD Brother Colon Cancer Paternal Aunt Colon Cancer Paternal Uncle Employer And Job Title: [employer]) Years Of Education Completed: 12 years Marital Status: to Dragan ([place]) with 2 children Social History Tobacco Use Smoking status: Former Smoker Packs/day: 0.15 Years: 2.00 Pack years: 0.30 Types: Cigarettes Start date: 11/15/1963 Quit date: 11/15/1965 Years since quittin.4 Smokeless tobacco: Never Used Tobacco comment: quit 40 yrs. ago Substance Use Topics Alcohol use: No Drug use: No Review of Systems: Review of Systems HENT: Positive for hearing loss. Gastrointestinal: Positive for abdominal pain, diarrhea and nausea. Gas, Heartburn All other systems reviewed and are negative. Are you taking any blood thinners? No Physical Examination: BP 122/72 Pulse 64 Ht 5' 2 (1.58m) Wt 148 lb (67.1kg) BMI 27.06 kg/(m^2). Physical Exam Constitutional: General: She is not in acute distress. Appearance: Normal appearance. She is normal weight. She is not ill-appearing, toxic-appearing or diaphoretic. HENT: Head: Normocephalic and atraumatic. Nose: Nose normal. Eyes: General: No scleral icterus. Right eye: No discharge. Left eye: No discharge. Extraocular Movements: Extraocular movements intact. Conjunctiva/sclera: Conjunctivae normal. Pupils: Pupils are equal, round, and reactive to light. Cardiovascular: Rate and Rhythm: Normal rate and regular rhythm. Pulses: Normal pulses. Heart sounds: Normal heart sounds. No murmur heard. No friction rub. No gallop. Pulmonary: Effort: No respiratory distress. Breath sounds: Normal breath sounds. No stridor. No wheezing, rhonchi or rales. Chest: Chest wall: No tenderness. Abdominal: General: Abdomen is flat. Bowel sounds are normal. There is no distension. Palpations: Abdomen is soft. There is no mass. Tenderness: There is no abdominal tenderness. There is no right CVA tenderness, left CVA tenderness, guarding or rebound. Hernia: No hernia is present. Musculoskeletal: General: Normal range of motion. Cervical back: Normal range of motion and neck supple. Comments: Ambulates with cane Skin: General: Skin is warm and dry. Neurological: General: No focal deficit present. Mental Status: She is alert and oriented to person, place, and time. Psychiatric: Mood and Affect: Mood normal. Behavior: Behavior normal. Assessment/Plan (R10.13) Epigastric pain (primary encounter diagnosis) (Z98.890) History of Torsten fundoplication (R19.5) Loose stools (Z90.411) History of partial pancreatectomy 1. Epigastric pain - omeprazole (PRILOSEC) 40 mg capsule; Take 1 capsule by mouth once daily. 30 minutes before meal. Dispense: 30 capsule; Refill: 2 - dicyclomine (BENTYL) 10 mg capsule; Take 1 capsule by mouth three times daily as needed (for abdominal pain). Dispense: 30 capsule; Refill: 2 - Start Prilosec 40 mg daily - Start Bentyl PRN - Consider EGD after she obtains ECHO next week. She will mychart message me once she receives results from PCP - Try to obtain CT abd records from ER visit 12/2021 - Discussed gastritis precautions Recommend high protein, high fiber diet. Promotion of salivation through oral lozenges/chewing gum Drink plenty of water Avoid NSAIDs (such as Advil, Ibuprofen, Excedrin, Mobic), tobacco, alcohol, carbonated beverages, caffeine, chocolate, tomato based sauces, spicy/fatty foods, and peppermint Avoid eating less than 3 hours before bed. Elevate the head of the bed 6 inches, or invest in a wedge pillow. Laying on left side with head elevated may help alleviate reflux symptoms. 2. History of Torsten fundoplication - omeprazole (PRILOSEC) 40 mg capsule; Take 1 capsule by mouth once daily. 30 minutes before meal. Dispense: 30 capsule; Refill: 2 3. Loose stools - Chronic in nature since pancreatectomy in 2012, colon 2015 was normal including random biopsies - Provided trial of Creon 36 and included instructions in AVS - Consider additional stool, Celiac testing, possible repeat colonoscopy 4. History of partial pancreatectomy - Provided trial of Creon 36 and included instructions in AVS - Dr. Fontenot following pancreatic cyst with yearly abdominal imaging Recommended to please call office/go to ER if fever, chills, chest pain, SOB, diarrhea, nausea, emesis, worsening abdominal pain, dehydration occurs I spent a total of 30 minutes on the date of the service which included preparing to see the patient, [id number] patient care, completing clinical documentation, obtaining and/or reviewing separately obtained history, performing a medically appropriate examination, counseling and educating the pat ient/family/caregiver, ordering medications, tests, or procedures, communicating with other HCPs (not separately reported), independently interpreting results (not separately reported), communicatingresults to the patient/family/caregiver, and care coordination (not separately reported). Monica Wynne PA-C April 16, 2022 10:29 AM [facility] Diagnosis Epigastric pain- Primary Abdominal pain, epigastric History of Torsten fundoplication Personal history of surgery to other organs Loose stools Abnormal feces History of partial pancreatectomy [facility] Diagnosis History of partial pancreatectomy Epigastric pain Abdominal pain, epigastric History of Torsten fundoplication Personal history of surgery to other organs [facility] Diagnosis Osteopenia after menopause Other specified disorders of bone density and structure, unspecified site Asymptomatic menopausal state Asymptomatic postmenopausal status (age-related) (natural) Pulmonary hypertension, unspecified (HCC) Cardiomegaly documented in this encounter [facility] Work Phone: Evaluation note* Diagnosis Abnormal mammogram of right breast Pulmonary hypertension, unspecified (HCC) Cardiomegaly documented in this encounter [facility] Work Phone: Evaluation note* Diagnosis Epigastric pain- Primary Abdominal pain, epigastric History of Torsten fundoplication Personal history of surgery to other organs [facility] Diagnosis Epigastric pain Abdominal pain, epigastric History of Torsten fundoplication Personal history of surgery to other organs [facility] Diagnosis Epigastric pain- Primary Abdominal pain, epigastric [facility] Diagnosis Bile reflux gastritis Other specified gastritis without mention of hemorrhage Early satiety Bloating Flatulence, eructation, and gas pain [facility] Diagnosis Facet arthritis of lumbar region- Primary Lumbosacral spondylosis without myelopathy 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 [facility] Diagnosis Facet arthritis of lumbar region- Primary Lumbosacral spondylosis without myelopathy Anterolisthesis of lumbar spine [facility] Diagnosis Facet arthritis of lumbar region- Primary Lumbosacral spondylosis without myelopathy Bilateral primary osteoarthritis of hip [facility] Diagnosis Bilateral low back pain with sciatica, sciatica laterality unspecified, unspecified chronicity- Primary Chronic pain of both hips Obstructive sleep apnea Obstructive sleep apnea (adult) (pediatric) Parasomnia, unspecified type documented in this encounter [facility] note* Diagnosis Pain in left hip- Primary Pain in joint, pelvic region and thigh documented in this encounter [facility] note* Diagnosis Therapeutic drug monitoring- Primary Encounter for therapeutic drug monitoring documented in this encounter [facility] note* Diagnosis Pain of left hip- Primary Primary osteoarthritis of left hip Primary localized osteoarthrosis, pelvic region and thigh Facet arthritis of lumbar region Lumbosacral spondylosis without myelopathy documented in this encounter [facility] note* Diagnosis Age-related osteoporosis without current pathological fracture documented in this encounter [facility] note* Diagnosis Fall, initial encounter- Primary Acute pain of both knees Chest wall pain Painful respiration documented in this encounter [facility] note* Diagnosis Pain of left hip documented in this encounter [facility] note* Diagnosis Abnormal mammogram Abnormal mammogram, unspecified documented in this encounter [facility] note* Diagnosis Abnormal mammogram Abnormal mammogram, unspecified documented in this encounter [facility] note* Diagnosis Tear of left acetabular labrum, subsequent encounter- Primary Contusion of right knee, subsequent encounter documented in this encounter [facility] note* Diagnosis Sacroiliac joint dysfunction of both sides- Primary Tear of left acetabular labrum, subsequent encounter Primary osteoarthritis of both hips documented in this encounter [facility] note* Diagnosis Medication management- Primary documented in this encounter [facility] for referral (narrative)* Outpatient Procedure (Routine) - Pending Review Specialty Diagnoses / Procedures Referred By Jane silvestre Referred To Contact [facility] Diagnoses Epigastric pain History of Torsten fundoplication Procedures EGD DIAGNOSTIC ESOPHAGOGASTRODUODENOSCOP Y TRANSORAL DIAGNOSTIC Monica Wynne PA-C [address] [place] [address] [facility] [place] [address] [place] [address] Referral ID Status Reason Start Date Expiration Date Visits Requested Visits Authorized [id number] Pending Review Auto-Generat ed Referral 06/19/2022 06/19/2023 1 1 [facility] for referral (narrative)* Outpatient Procedure (Routine) - Closed Specialty Diagnoses / Procedures Referred By Jane silvestre Referred To Contact [facility] Diagnoses Epigastric pain History of Torsten fundoplication Procedures EGD DIAGNOSTIC ESOPHAGOGASTRODUODENOSCOP Y TRANSORAL DIAGNOSTIC Monica Wynne PA-C [address] [place] [address] [facility] [place] [address] [place] [address] Referral ID Status Reason Start Date Expiration Date V isits Requested Visits Authorized [id number] Closed Auto-Generate d Referral 06/19/2022 06/19/2023 1 1 [facility] for referral (narrative)* Diagnostic Procedure Only (Routine) - Closed Specialty Diagnoses / Procedures Referred By Jane silvestre Referred To Contact MOLECULAR & FUNCTIONAL IMAGING Diagnoses Bile reflux gastritis Early satiety Bloating Procedures NM GASTRIC EMPTYING SOLID GASTRIC EMPTYING STUDY Lin Hood PA-C [address] [place] [address] Molecular & Functional Imaging [address] [id number] Referral ID Status Reason Start Date Expiration Date V isits Requested Visits Authorized [id number] Closed Auto-Generate d Referral 09/15/2022 10/15/2023 1 1 [facility] for referral (narrative)* Consultation (Routine) - Pending Review Specialty Diagnoses / Procedures Referred By Jane silvestre Referred To Contact Orthopedic Surgery Diagnoses Chronic pain of both hips Jalen Ng MD [address] [place] [address] Meena Russell Referral ID Status Reason Start Date Expiration Date Visits Requested Visits Authorized [id number] Pending Review Specialty Services Required 03/11/2023 03/10/2024 [address] Russell [address] [place] [address] * Consultation (Routine) - Pending Review Specialty Diagnoses / Procedures Referred By Contac t Referred To Contact Pain Medicine Diagnoses Bilateral low back pain with sciatica, sciatica laterality unspecified, unspecified chronicity Procedures MA OFFICE/OUTPATIENT [facility] MDM 60-74 MINUTES Jalen Ng MD [address] [place] [address] Junior Joyner [address] [place] [address] Referral ID Status Reason Start Date Expiration Date Visits Requested Visits Authorized [id number] Pending Review Specialty Services Required 03/11/2023 03/10/2024 1 1 [facility] for referral (narrative)* Diagnostic Procedure Only (Routine) - Pending Review Specialty Diagnoses / Procedures Referred By Contac t Referred To Contact XR IMAGING Diagnoses Pain in left hip Procedures XR PELVIS 1V AP RADIOLOGIC EXAMINATION PELVIS 1/2 VIEWS Edith Ontiveros PA-C [address] [place] [address] Xr Imaging Referral ID Status Reason Start Date Expiration Date Visits Requested Visits Authorized [id number] Pending Review Auto-Generat ed Referral 04/14/2023 05/13/2024 1 1 [facility] for referral (narrative)* Consultation (Routine) - Pending Review Specialty Diagnoses / Procedures Referred By Contac t Referred To Contact Orthopedic Surgery Diagnoses Tear of left acetabular labrum, subsequent encounter Sydnee Guerrero MD [address] [facility] [place] [address] [facility] Ort [address] [facility] [address] [place] [address] Referral ID Status Reason Start Date Expiration Date Visits Requested Visits Authorized [id number] Pending Review Specialty Services Required 07/23/2023 07/22/2024 1 1 [facility] for visit Narrative* Outpatient Procedure (Routine) - Closed Specialty Diagnoses / Procedures Referred By Jane silvestre Referred To Contact [facility] Diagnoses Epigastric pain History of Torsten fundoplication Procedures EGD DIAGNOSTIC ESOPHAGOGASTRODUODENOSCOP Y TRANSORAL DIAGNOSTIC Monica Wynne PA-C [address] [place] [address] [facility] [place] [address] [place] [address] Referral ID Status Reason Start Date Expiration Date V isits Requested Visits Authorized [id number] Closed Auto-Generate d Referral 06/19/2022 06/19/2023 1 1 [facility] for visit Narrative* Diagnostic Procedure Only (Routine) - Closed Specialty Diagnoses / Procedures Referred By Jane silvestre Referred To Contact MOLECULAR & FUNCTIONAL IMAGING Diagnoses Bile reflux gastritis Early satiety Bloating Procedures NM GASTRIC EMPTYING SOLID GASTRIC EMPTYING STUDY Lin Hood PA-C [address] [place] [address] Molecular & Functional Imaging [address] [phone] Referral ID Status Reason Start Date Expiration Date V isits Requested Visits Authorized [id number] Closed Auto-Generate d Referral 09/15/2022 10/15/2023 1 1 [facility] Summary Purpose Family History No Family History Records FoundNo Family History Records FoundNo Family History Records FoundNo Family History Records FoundNo Family History Records FoundNo Family History Records FoundNo Family History Records FoundNo Family History Records FoundNo Family History Records FoundNo Family History Records FoundNo Family History Records FoundNo Family History Records Found Advance Directives No Advanced Directives Records FoundDocuments on File Type Date Recorded Patient Step Down Specialist Expl anation Advance Directives and Living Will Power of Analytical Chemistry Teacher Documents on File Type Date Recorded Patient Step Down Specialist Expl anation ACP-Advance Directive ACP-Power of Analytical Chemistry Teacher Documents on File Type Date Recorded Patient Step Down Specialist Expl anation ACP-Advance Directive ACP-Power of Analytical Chemistry Teacher Documents on File Type Date Recorded Patient Step Down Specialist Expl anation Advance Directive(s) Documents on File Type Date Recorded Patient Step Down Specialist Expl anation Advance Directive(s) Documents on File Type Date Recorded Patient Step Down Specialist Expl anation Advance Directives and Livin g Will 07/06/2023 9:17 AM Documents on File Type Date Recorded Patient Step Down Specialist Expl anation Advance Directives and Livin g Will 07/06/2023 9:17 AM Discharge Instructions * Attachments The following attachments cannot be sent through Care Everywhere. * UTI (Urinary Tract Infection): Female (Indonesian) documented in this encounter Assessments Diagnosis Multiple contusions- Primary Contusion of multiple sites, not elsewhere classified Contusion of left knee, initial encounter Urinary tract infection with hematuria, site unspecified Diagnosis Localized swelling, mass and lump, left upper limb Skin lump of arm, left Diagnosis Other amnesia Reason for Referral Status Reason Specialty Diagnoses / Procedures Referre d By Contact Referred To Contact Open Radiology Diagnoses Skin lump of arm, left Procedures US EXTREMITY NON VASCULAR LIMITED Linda Penny, ACID CONCENTRATOR - CLINICAL DATA MANAGEMENT MANAGER [address] [place] [address] Specialty Diagnoses / Procedures Referred By Contac t Referred To Contact Diagnoses Epigastric pain Monica Wynne PA-C [address] [place] [address] Referral ID Status Reason Start Date Expiration Date V isits Requested Visits Authorized [id number] Pending Review 1 1 Specialty Diagnoses / Procedures Referred By Contac t Referred To Contact Radiology Diagnoses Osteopenia, unspecified location Osteopenia after menopause Procedures DEXA Bone Density Axial Skeleton Digna Hawkins, ACID CONCENTRATOR - CLINICAL DATA MANAGEMENT MANAGER [address] [facility] [address] [place] [address] Referral ID Status Reason Start Date Expiration Date Visits Re quested Visits Authorized [id number] Open 03/31/2022 03/31/2023 1 1 Specialty Diagnoses / Procedures Referred By Contac t Referred To Contact Radiology Diagnoses Abnormal mammogram of right breast Procedures US Breast Limited Right Digna Hawkins, ACID CONCENTRATOR - CLINICAL DATA MANAGEMENT MANAGER [address] [place] [address] Referral ID Status Reason Start Date Expiration Date Visits Re quested Visits Authorized [id number] Closed 05/22/2022 05/22/2023 1 1 Specialty Diagnoses / Procedures Referred By Contac t Referred To Contact Radiology Diagnoses Abnormal mammogram of right breast Procedures ERICA ANTOINE DIGITAL DIAGNOSTIC UNILATERAL RIGHT Digna Hawkins, ACID CONCENTRATOR - CLINICAL DATA MANAGEMENT MANAGER [address] [place] [address] Referral ID Status Reason Start Date Expiration Date Visits Re quested Visits Authorized [id number] Closed 05/22/2022 05/22/2023 1 1 Specialty Diagnoses / Procedures Referred By Contac t Referred To Contact [facility] Diagnoses Facet arthritis of lumbar region 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 Procedures CONSULT TO PHYSICAL THERAPY PHYSICAL THERAPY EVALUATION HIGH COMPLEX 45 MINS THERAPEUTIC EXERCISES RE, EA 15 MIN. Helen Russell DO [address] [place] [address] [facility] [place] [address] Referral ID Status Reason Start Date Expiration Date Visits Requested Visits Authorized [id number] Authorized Auto-Generat ed Referral 11/15/2022 11/14/2023 20 20 Specialty Diagnoses / Procedures Referred By Contac t Referred To Contact [facility] [place] Diagnoses Facet arthritis of lumbar region Bilateral primary osteoarthritis of hip Procedures CONSULT TO [facility] OFFICE/OUTPATIENT [facility] MDM 60-74 MINUTES Helen Russell DO [address] [place] [address] Referral ID Status Reason Start Date Expiration Date Visits Requested Visits Authorized [id number] Pending Review PCP Requested Referral 01/14/2023 01/14/2024 1 1 Specialty Diagnoses / Procedures Referred By Contac t Referred To Contact MR IMAGING Diagnoses Pain of left hip Procedures MRI HIP WO IVCON LEFT MRI ANY JT LOWER EXTREM W/O CONTRAST MATREdith Noguera PA-C [address] [place] [address] Mr Imaging Referral ID Status Reason Start Date Expiration Date Visits Requested Visits Authorized [id number] Authorized Auto-Generat ed Referral 05/12/2023 06/10/2024 1 1 Referral ID Status Reason Start Date Expiration Date V isits Requested Visits Authorized [id number] Closed Auto-Generate d Referral 05/12/2023 06/10/2024 1 1 Medications Administered Section Inactive Administered Medications - up to 3 most recent administrations Medication Order MAR Action Action Date Dose Rate Site lidocaine (PF) 10 mg/mL (1 %) injection (XYLOCAINE) SUBCUTANEOUS, X (OR/PROCEDURE) PRN, Starting on Wed05/05/23 at 0830, Until Rosina 05/06/23 at 0303, Intraprocedure Given 05/05/2023 8:30 AM EDT 5 mL Hip, Left lidocaine (PF) 10 mg/mL (1 %) injection (XYLOCAINE) SUBCUTANEOUS, X (OR/PROCEDURE) PRN, Starting on Wed05/05/23 at 0837, Until Rosina 05/06/23 at 0303, Intraprocedure Given 05/05/2023 8:37 AM EDT 3 mL Hip, Left triamcinolone acetonide injection (KeNALog 40) INTRA-ARTICULAR, X (OR/PROCEDURE) PRN, Starting on Wed05/05/23 at 0837, Until Rosina 05/06/23 at 0303, Intraprocedure Given 05/05/2023 8:37 AM EDT 80 mg Hip, Left Additional Source Comments INFORMATION SOURCE (unrecogn ized section and content) DATE CREATED AUTHOR AUTHOR'S ORGANIZ ATION 04/06/2019 [facility] DATE CREATED AUTHOR AUTHOR'S ORGANIZ ATION 06/08/2019 [facility] DATE CREATED AUTHOR AUTHOR'S ORGANIZ ATION 02/21/2022 [place] [facility] ([place]) DATE CREATED AUTHOR AUTHOR'S ORGANIZ ATION 06/19/2022 [facility] DATE CREATED AUTHOR AUTHOR'S ORGANIZ ATION 07/08/2022 [facility] DATE CREATED AUTHOR AUTHOR'S ORGANIZ ATION 08/12/2022 [facility] DATE CREATED AUTHOR AUTHOR'S ORGANIZ ATION 10/09/2022 [facility] DATE CREATED AUTHOR AUTHOR'S ORGANIZ ATION 04/26/2023 [facility] DATE CREATED AUTHOR AUTHOR'S ORGANIZ ATION 05/05/2023 [facility] DATE CREATED AUTHOR AUTHOR'S ORGANIZ ATION 06/26/2023 [facility] DATE CREATED AUTHOR AUTHOR'S ORGANIZ ATION 11/29/2023 [facility] Reason for Visit (unrecogniz ed section and content) Reason Comments Abdominal Pain Hiatal hernia, Heart burn. CT/XR 12/30/21 Labs 03/31/22 Reason Comments Refill Request Reason Comments Patient Question Reason Comments New Second Opinion Reason Comments Physical Therapy Specialty Diagnoses / Procedures Referred By Contac t Referred To Contact [facility] Diagnoses Facet arthritis of lumbar region 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 Procedures CONSULT TO PHYSICAL THERAPY PHYSICAL THERAPY EVALUATION HIGH COMPLEX 45 MINS THERAPEUTIC EXERCISES RE, EA 15 MIN. Helen Russell DO [address] [place] [address] [facility] [place] [address] [place] [address] Referral ID Status Reason Start Date Expiration Date Visits Requested Visits Authorized [id number] Authorized Auto-Generat ed Referral 11/15/2022 11/14/2023 20 20 Reason Comments Appointment Reason Comments New Patient Low Back Pain Right Hip Pain Left Hip Pain Specialty Diagnoses / Procedures Referred By Contac t Referred To Contact [facility] [place] / SPINE Diagnoses Facet arthritis of lumbar region Bilateral primary osteoarthritis of hip Procedures CONSULT TO [facility] OFFICE/OUTPATIENT NEW [facility]IGH MDM 60-74 MINUTES Helen Russell DO [address] [place] [address] [facility] [address] [address] Referral ID Status Reason Start Date Expiration Date V isits Requested Visits Authorized [id number] Closed PCP Requested Referral 01/14/2023 01/14/2024 1 1 Reason Comments Follow-up Numbness Sleep Apnea Specialty Diagnoses / Procedures Referred By Contac t Referred To Contact Diagnoses Primary osteoarthritis of left hip Procedures ARTHROCENTESIS ASPIR&/INJ MAJOR JT/BURSA W/O US INJECT HIP LEFT [facility] [address] [place] [address] Referral ID Status Reason Start Date Expiration Date Visits Re quested Visits Authorized [id number] 1 1 Reason Onset Date Comments Injections 05/10/2023 PROLIA Care Coordination 05/10/2023 Reason Comments OP Infusion Specialty Diagnoses / Procedures Referred By Mernaac t Referred To Contact Diagnoses Age-related osteoporosis without current pathological fracture Digna Hawkins, ACID CONCENTRATOR - CLINICAL DATA MANAGEMENT MANAGER [address] [facility] [address] [place] [address] [facility] [address] [place] [address] Referral ID Status Reason Start Date Expiration Date V isits Requested Visits Authorized [id number] Pending Review 05/12/2023 11/08/2023 1 1 Reason Comments Fall Patient tripped in t he bathroom, falling forward into the tub, hitting chest. No LOC, No head injuries; No thinners; Fell onto knees as well Specialty Diagnoses / Procedures Referred By Jane t Referred To Contact MR IMAGING Diagnoses Pain of left hip Procedures MRI HIP WO IVCON LEFT MRI ANY JT LOWER EXTREM W/O CONTRAST Edith Eaton PA-C [address] [place] [address] Mr Imaging Referral ID Status Reason Start Date Expiration Date V isits Requested Visits Authorized [id number] Closed Auto-Generate d Referral 05/12/2023 06/10/2024 1 1 Reason Onset Date Comments Results 07/06/2023 Reason Onset Date Comments Knee Pain 07/22/2023 Reason Comments Knee Pain Fell on right knee i n May, there is a lump in knee which is painful, not anybetter[facility] shows labrum tear- would like to discuss options Diabetes Fasting BS this am w as 147 Reason Onset Date Comments Appointment Request 07/26/2023 Reason Onset Date Comments Appointment 07/27/2023 appointment Reason Comments New Patient Left Hip Pain Specialty Diagnoses / Procedures Referred By Jane t Referred To Contact Orthopedic Surgery / Sports Medicine Diagnoses Tear of left acetabular labrum, subsequent encounter Sydnee Guerrero MD [address] [facility] [place] [address] Edith Rose MD [address] [place] [address] Referral ID Status Reason Start Date Expiration Date V isits Requested Visits Authorized [id number] Closed Specialty Services Required 07/23/2023 07/22/2024 1 1 Reason Onset Date Comments Injections 11/05/2023 PROLIA Source Comments (unrecognize d section and content) In the event this informatio n is protected by the Federal Confidentiality of Alcohol and Drug Abuse Patient Records regulations: The Federal rules restrict any use of the information to criminally investigate or prosecute any alcohol or drug abuse patient.[facility] the event this information is protected by the Federal Confidentiality of Alcohol and Drug Abuse Patient Records regulations: The Federal rules restrict any use of the information to criminally investigate or prosecute any alcohol or drug abuse patient.[facility] the event this information is protected by the Federal Confidentiality of Alcohol and Drug Abuse Patient Records regulations: The Federal rules restrict any use of the information to criminally investigate or prosecute any alcohol or drug abuse patient.[facility] HospitalIn the event this information is protected by the Federal Confidentiality of Alcohol and Drug Abuse Patient Records regulations: The Federal rules restrict any use of the information to criminally investigate or prosecute any alcohol or drug abuse patient.[facility] HospitalIn the event this information is protected by the Federal Confidentiality of Alcohol and Drug Abuse Patient Records regulations: The Federal rules restrict any use of the information to criminally investigate or prosecute any alcohol or drug abuse patient.[facility] HospitalIn the event this information is protected by the Federal Confidentiality of Alcohol and Drug Abuse Patient Records regulations: The Federal rules restrict any use of the information to criminally investigate or prosecute any alcohol or drug abuse patient.[facility] HospitalIn the event this information is protected by the Federal Confidentiality of Alcohol and Drug Abuse Patient Records regulations: The Federal rules restrict any use of the information to criminally investigate or prosecute any alcohol or drug abuse patient.[facility] HospitalIn the event this information is protected by the Federal Confidentiality of Alcohol and Drug Abuse Patient Records regulations: The Federal rules restrict any use of the information to criminally investigate or prosecute any alcohol or drug abuse patient.[facility] HospitalIn the event this information is protected by the Federal Confidentiality of Alcohol and Drug Abuse Patient Records regulations: The Federal rules restrict any use of the information to criminally investigate or prosecute any alcohol or drug abuse patient.[facility] HospitalIn the event this information is protected by the Federal Confidentiality of Alcohol and Drug Abuse Patient Records regulations: The Federal rules restrict any use of the information to criminally investigate or prosecute any alcohol or drug abuse patient.[facility] HospitalIn the event this information is protected by the Federal Confidentiality of Alcohol and Drug Abuse Patient Records regulations: The Federal rules restrict any use of the information to criminally investigate or prosecute any alcohol or drug abuse patient.[facility] HospitalIn the event this information is protected by the Federal Confidentiality of Alcohol and Drug Abuse Patient Records regulations: The Federal rules restrict any use of the information to criminally investigate or prosecute any alcohol or drug abuse patient.[facility] HospitalIn the event this information is protected by the Federal Confidentiality of Alcohol and Drug Abuse Patient Records regulations: The Federal rules restrict any use of the information to criminally investigate or prosecute any alcohol or drug abuse patient.[facility] HospitalIn the event this information is protected by the Federal Confidentiality of Alcohol and Drug Abuse Patient Records regulations: The Federal rules restrict any use of the information to criminally investigate or prosecute any alcohol or drug abuse patient.[facility] HospitalIn the event this information is protected by the Federal Confidentiality of Alcohol and Drug Abuse Patient Records regulations: The Federal rules restrict any use of the information to criminally investigate or prosecute any alcohol or drug abuse patient.[facility] HospitalIn the event this information is protected by the Federal Confidentiality of Alcohol and Drug Abuse Patient Records regulations: The Federal rules restrict any use of the information to criminally investigate or prosecute any alcohol or drug abuse patient.[facility] Care Teams (unrecognized sec tion and content) Medical Records Supervisor Relationship Specialty Start Date End Date Sydnee Guerrero MD [address] [place] [address] [place] [address] PCP - General Family Practice 04/02/16 Medical Records Supervisor Relationship Specialty Start Date End Date Sydnee Guerrero MD [address] [place] [address] PCP - General 08/27/15 Medical Records Supervisor Relationship Specialty Start Date End Date Sydnee Guerrero MD [address] [place] [address] PCP - General 08/27/15 Medical Records Supervisor Relationship Specialty Start Date End Date Sydnee Guerrero MD [address] [place] [address] PCP - General 08/27/15 Medical Records Supervisor Relationship Specialty Start Date End Date Sydnee Guerrero MD [address] [place] [address] [address] [place] [address] PCP - General Family Practice 04/02/16 Medical Records Supervisor Relationship Specialty Start Date End Date Sydnee Guerrero MD [address] [place] [address] [place] [address] PCP - General Family Practice 04/02/16 Medical Records Supervisor Relationship Specialty Start Date End Date Sydnee Guerrero MD [address] [place] [address] [place] [address] PCP - General Family Practice 04/02/16 Medical Records Supervisor Relationship Specialty Start Date End Date Sydnee Guerrero MD [address] [place] [address] [place] [address] PCP - General Family Medicine 04/02/16 Medical Records Supervisor Relationship Specialty Start Date End Date Sydnee Guerrero MD [address] [place] [address] [place] [address] PCP - General Family Medicine 04/02/16 Medical Records Supervisor Relationship Specialty Start Date End Date Sydnee Guerrero MD [address] [place] [address] [place] [address] PCP - General Family Medicine 04/02/16 Medical Records Supervisor Relationship Specialty Start Date End Date Sydnee Guerrero MD [address] [place] [address] [place] [address] PCP - General Family Medicine 04/02/16 Medical Records Supervisor Relationship Specialty Start Date End Date Sydnee Guerrero MD [address] [place] [address] [place] [address] PCP - General Family Medicine 04/02/16 Medical Records Supervisor Relationship Specialty Start Date End Date Sydnee Guerrero MD [address] [place] [address] PCP - General 07/16/19 Medical Records Supervisor Relationship Specialty Start Date End Date Sydnee Guerrero MD [address] [place] [address] [place] [address] PCP - General Family Medicine 04/02/16 Medical Records Supervisor Relationship Specialty Start Date End Date Sydnee Guerrero MD [address] [place] [address] [place] [address] PCP - General Family Medicine 04/02/16 Medical Records Supervisor Relationship Specialty Start Date End Date Sydnee Guerrero MD [address] [place] [address] PCP - General 07/16/19 Medical Records Supervisor Relationship Specialty Start Date End Date Sydnee Guerrero MD [address] [place] [address] PCP - General 07/16/19 Medical Records Supervisor Relationship Specialty Start Date End Date Sydnee Guerrero MD [address] [place] [address] PCP - General 07/16/19 Medical Records Supervisor Relationship Specialty Start Date End Date Sydnee Guerrero MD [address] [place] [address] PCP - General 07/16/19 Medical Records Supervisor Relationship Specialty Start Date End Date Sydnee Guerrero MD [address] [place] [address] [place] [address] PCP - General Family Medicine 04/02/16 Medical Records Supervisor Relationship Specialty Start Date End Date Sydnee Guerrero MD [address] [place] [address] PCP - General 07/16/19 Medical Records Supervisor Relationship Specialty Start Date End Date Sydnee Guerrero MD [address] [place] [address] PCP - General 07/16/19 Medical Records Supervisor Relationship Specialty Start Date End Date Sydnee Guerrero MD [address] [place] [address] PCP - General 07/16/19 Medical Records Supervisor Relationship Specialty Start Date End Date Sydnee Guerrero MD [address] [place] [address] PCP - General 07/16/19 Medical Records Supervisor Relationship Specialty Start Date End Date Sydnee Guerrero MD [address] [place] [address] PCP - General 07/16/19 Medical Records Supervisor Relationship Specialty Start Date End Date Sydnee Guerrero MD [address] [place] [address] PCP - General 07/16/19 Medical Records Supervisor Relationship Specialty Start Date End Date Sydnee Guerrero MD [address] [place] [address] PCP - General 07/16/19 Medical Records Supervisor Relationship Specialty Start Date End Date Sydnee Guerrero MD [address] [place] [address] PCP - General 07/16/19 Medical Records Supervisor Relationship Specialty Start Date End Date Sydnee Guerrero MD [address] [place] [id number] PCP - General 07/16/19 Medical Records Supervisor Relationship Specialty Start Date End Date Sydnee Guerrero MD [address] [place] [id number] PCP - General 07/16/19 PRN Active and Recently Administ ered Medications (unrecognized section and content) Scheduled Medication Order 05/28/2023 05/29/2023 05/30/2023 ketorolac (Toradol) injection 15 mg (COMPLETED) 15 mg, IntraMUSCular, Once, On 05/30/23 at 1210, For 1 dose 1224 (Given - Provid er: Anurag Perry) FOR RECORDS PERTAINING TO PATIENTS WHO ARE OR HAVE BEEN ENROLLED IN A CHEMICAL DEPENDENCY/SUBSTANCEABUSE PROGRAM, SOME INFORMATION MAY BE OMITTED. This clinical summary was aggregated from multiple sources. Caution should be exercised in using it in the provision of clinical care. This summary normalizes information from multiple sources, and as a consequence, information in this document may materially change the coding, format and clinical context of patient data. In addition, data may be omitted in some cases. CLINICAL DECISIONS SHOULD BE BASED ON THE PRIMARY CLINICAL RECORDS. [employer] [facility]. provides no warranty or guarantee of the accuracy or completeness of information in this document.
== END | disposition home or self-care (01) ==
LOC: RAD 10:34
PROVIDERS: PCP Family Medicine; Referring Provider Anesthesiology Pain Medicine; Visit Provider Anesthesiology Pain Medicine
DX: M16.0 Bilateral primary osteoarthritis of hip (principal)
CPT/HCPCS: 73521

== ENCOUNTER → 2025-08-09 | Outpatient (CLI) | payer MEDICARE, SELFPAY ==
--- NOTE | 2025-08-09 15:14 | MRI_ITS ---
PROCEDURE: SPINE LUMBAR (ROUTINE) 08/09/2025 REASON FOR EXAM: SPONDYLOLISTHESIS TECHNIQUE: Procedure Code: MRISPL Modality: MR Procedure: SPINE LUMBAR (ROUTINE) COMPARISON: Lumbar spine MRI 04/12/2024. FINDINGS: Vertebrae: Preserved in height and signal. Schmorl nodes at the upper endplates of T12 and L2. Alignment: Retrolisthesis L2 on L3 by 2 mm. Conus Medullaris: Unremarkable. L1-2: No foraminal or canal stenosis. L2-3: Disc desiccation. Disc bulge. Left foraminal herniation measures measures 4 mm. Severe left and mild right foramina stenosis. No canal stenosis. L3-4: Disc bulge. Status post laminectomy. Facet joint arthropathy. Mild bilateral foramina stenosis. L4-5: Disc bulge. Facet joint arthropathy. Mild bilateral foramina stenosis. Status post laminectomies. L5-S1: Facet joint arthropathy. No foraminal or canal stenosis. Sacrum: Unremarkable. MRI/Spine Lumbar (Routine) IMPRESSION: No significant change compared to MRI 04/12/2024. Status post laminectomies at L3, L4. Severe left foramina stenosis at L2-L3 from facet joint arthropathy. No signif icant canal stenosis. Reading Location: [id number]
== END | disposition home or self-care (01) ==
PROVIDERS: PCP Internal Medicine; Referring Provider Orthopaedic Surgery Orthopaedic Surgery of the Spine; Visit Provider Orthopaedic Surgery Orthopaedic Surgery of the Spine
DX: M43.16 Spondylolisthesis, lumbar region (principal); M48.062 Spinal stenosis, lumbar region with neurogenic claudication; Z98.890 Other specified postprocedural states
CPT/HCPCS: 72148